=== PATIENT | female | born 1930 | race Hispanic/Latino ===

== ENCOUNTER 2017-08-06 11:16 | Inpatient (IN) | payer MEDICARE, OTHER ==
[2017-08-06 11:17] VITALS: BMI 29.2
--- NOTE | 2017-08-06 11:45 | ED PDOC ---
Arrival/HPI - General Chief Complaint: Lower Extremity Problem/Injury Time Seen by Provider: 08/06/17 11:42 Past Medical History - Infectious Disease Hx of Infectious Diseases: None - Reproductive Menopause: Yes - Cardiac Hx Cardiac Disorders: Yes Hx Hypertension: Yes - Pulmonary Hx Respiratory Disorders: Yes Hx Chronic Obstructive Pulmonary Disease (COPD): Yes - Neurological Hx Neurological Disorder: No Hx Paralysis: No - HEENT Hx HEENT Disorder: Yes Hx Cataracts: Yes - Renal Hx Renal Disorder: No - Endocrine/Metabolic Hx Endocrine Disorders: Yes Hx Hypothyroidism: Yes - Hematological/Oncological Hx Blood Disorders: No Hx Blood Transfusions: No Hx Blood Transfusion Reaction: No - Integumentary Hx Dermatological Disorder: No - Musculoskeletal/Rheumatological Hx Musculoskeletal Disorders: Yes Hx Arthritis: Yes - Gastrointestinal Hx Gastrointestinal Disorders: Yes (BARETT'S ESOPHAGUS,APPENDECTOMY) Hx Gall Bladder Disease: Yes (CHOLECYSTECTOMY) - Genitourinary/Gynecological Hx Genitourinary Disorders: Yes Hx Urinary Tract Infection: Yes (03-16-12) - Psychiatric Hx Psychophysiologic Disorder: No Hx Emotional Abuse: No Hx Physical Abuse: No Hx Substance Use: No - Past Surgical History Past Surgical History: Non-Contributing - Surgical History Hx Appendectomy: Yes Hx Cataract Extraction: Yes Hx Cholecystectomy: Yes Other/Comment: rt mastectomy rt breast ca - Anesthesia Hx Anesthesia Reactions: No Hx Malignant Hyperthermia: No - Suicidal Assessment Feels Threatened In Home Enviroment: No Family/Social History Smoking Status: Former Smoker Hx Alcohol Use: No Hx Substance Use: No Allergies/Home Meds Allergies/Adverse Reactions: Allergies No Known Allergies Allergy (Verified 12/14/15 15:43) Home Medications: Home Meds Medication Instructions Recorded Confirmed Aspirin [Ecotrin] 81 mg PO HS 08/31/15 02/12/16 Calcium Carbonate/Vitamin D3 1 tab PO HS 08/31/15 02/12/16 [Caltrate 600 Plus D3 Tablet] Cholecalciferol (Vitamin D3) 2,000 iu PO HS 08/31/15 02/12/16 [Vitamin D3] Levothyroxine [Synthroid] 75 mcg PO QAM 08/31/15 02/12/16 Metoprolol Succinate [Toprol Xl] 75 mg PO HS 08/31/15 02/12/16 Simvastatin 20 mg PO QPM 08/31/15 02/12/16 Omeprazole [Prilosec] 40 mg PO DAILY 09/03/15 02/12/16 Amitriptyline [Elavil] 37.5 mg PO HS 12/14/15 02/12/16 Ascorbate Calcium [Vitamin C] 500 mg PO DAILY 12/14/15 02/12/16 Physical Exam Vital Signs Reviewed: Yes Vital Signs Temp Pulse Resp BP Pulse Ox 08/06/17 11:30 98.1 F 62 18 109/55 L 93 L Temperature: Afebrile Blood Pressure: Hypotensive Pulse: Regular Respiratory Rate: Normal Appearance: Positive for: Well-Appearing, Non-Toxic, Comfortable Pain Distress: None Mental Status: Positive for: Alert and Oriented X 3 - Systems Exam Head: Present: Atraumatic, Normocephalic Pupils: Present: PERRL Extroacular Muscles: Present: EOMI Conjunctiva: Present: Normal Mouth: Present: Moist Mucous Membranes Neck: Present: Normal Range of Motion Respiratory/Chest: Present: Clear to Auscultation, Good Air Exchange. No: Respiratory Distress, Accessory Muscle Use Cardiovascular: Present: Regular Rate and Rhythm, Normal S1, S2. No: Murmurs Abdomen: No: Tenderness, Distention, Peritoneal Signs Back: Present: Normal Inspection Upper Extremity: Present: Normal Inspection. No: Cyanosis, Edema Lower Extremity: Present: Normal Inspection. No: Edema Neurological: Present: GCS=15, CN II-XII Intact, Speech Normal Skin: Present: Warm, Dry, Normal Color. No: Rashes Psychiatric: Present: Alert, Oriented x 3, Normal Insight, Normal Concentration Disposition/Present on Arrival - Present on Arrival History of DVT/PE: No History of Uncontrolled Diabetes: No Urinary Catheter: No History of Decub. Ulcer: No History Surgical Site Infection Following: None - Disposition
[2017-08-06] MEDS ORDERED: Oxycodone/Acetaminophen 5/325 mg Tab PO STA (11:46)
--- NOTE | 2017-08-06 11:49 | ED PDOC ---
Arrival/HPI - General Chief Complaint: Lower Extremity Problem/Injury Time Seen by Provider: 08/06/17 11:42 Historian: Patient, Other (friend is at bedside) - History of Present Illness Narrative History of Present Illness (Text): 08/06/17 11:43 pt p/w + ~ 1 week onset of left hip/leg pain that now over the last 3 days causes severe pain with lifting the leg; pt felt weak to the left leg now over the last 3 days; pt states no Fall/trauma; pt also noted left upper arm pain ( no trauma); pt states bearing weight, movement causes severe left leg pain, at most pain is 8/10; pt has been limping since 3-4 days ago; pt states no fever/ chills/sweats, no cp/sob/palpitations, no abd pain, no n/v, no numbness/tingling , no urinary/bowel changes, no incontinence, pt denied numbness/tingling to her vaginal/rectal regions, no travel/sick contact; pt denied any bleeding pt is here for further eval. pt's without other complaints. PCP: Dr Mabry onc: Dr Abdullahi - [facility] surg onc: Dr Manjit GOMEZ spine surg: Dr Savanna Ray last chemo: 06/2017 Cervical/Lumbar laminectomy Time/Duration: 1 week Symptom Onset: Sudden Symptom Course: Unchanged Quality: Other (left leg pain/cramps) Severity Level: 8, Severe Activities at Onset: Other (worse with walking) Context: Exertion, Home Past Medical History - Provider Review Nursing Documentation Reviewed: Yes - Travel History Have you recently traveled outside [place] w/in the past 3 mons?: No - Past History Past History: No Previous - Infectious Disease Hx of Infectious Diseases: None - Tetanus Immunization Tetanus Immunization: Unknown - Reproductive Menopause: Yes Currently : No - Cardiac Hx Cardiac Disorders: Yes Hx Hypertension: Yes - Pulmonary Hx Respiratory Disorders: Yes Hx Chronic Obstructive Pulmonary Disease (COPD): Yes - Neurological Hx Neurological Disorder: No Hx Paralysis: No - HEENT Hx HEENT Disorder: Yes Hx Cataracts: Yes - Renal Hx Renal Disorder: No - Endocrine/Metabolic Hx Endocrine Disorders: Yes Hx Hypothyroidism: Yes - Hematological/Oncological Hx Blood Disorders: No Hx Blood Transfusions: No Hx Blood Transfusion Reaction: No - Integumentary Hx Dermatological Disorder: No - Musculoskeletal/Rheumatological Hx Musculoskeletal Disorders: Yes Hx Arthritis: Yes - Gastrointestinal Hx Gastrointestinal Disorders: Yes (BARETT'S ESOPHAGUS,APPENDECTOMY) Hx Gall Bladder Disease: Yes (CHOLECYSTECTOMY) - Genitourinary/Gynecological Hx Genitourinary Disorders: Yes Hx Urinary Tract Infection: Yes (03-16-12) - Psychiatric Hx Psychophysiologic Disorder: No Hx Emotional Abuse: No Hx Physical Abuse: No Hx Substance Use: No - Past Surgical History Past Surgical History: Non-Contributing - Surgical History Hx Appendectomy: Yes Hx Cataract Extraction: Yes Hx Cholecystectomy: Yes Other/Comment: rt mastectomy rt breast ca - Anesthesia Hx Anesthesia Reactions: No Hx Malignant Hyperthermia: No - Suicidal Assessment Feels Threatened In Home Enviroment: No Family/Social History - Physician Review Nursing Documentation Reviewed: Yes Family/Social History: No Known Family HX Smoking Status: Former Smoker Hx Alcohol Use: No Hx Substance Use: No Hx Substance Use Treatment: No Allergies/Home Meds Allergies/Adverse Reactions: Allergies No Known Allergies Allergy (Verified 12/14/15 15:43) Home Medications: Home Meds Medication Instructions Recorded Confirmed Aspirin [Ecotrin] 81 mg PO HS 08/31/15 08/06/17 Calcium Carbonate/Vitamin D3 1 tab PO HS 08/31/15 08/06/17 [Caltrate 600 Plus D3 Tablet] Cholecalciferol (Vitamin D3) 2,000 iu PO HS 08/31/15 08/06/17 [Vitamin D3] Levothyroxine [Synthroid] 75 mcg PO QAM 08/31/15 08/06/17 Metoprolol Succinate [Toprol Xl] 75 mg PO HS 08/31/15 08/06/17 Simvastatin 20 mg PO QPM 08/31/15 08/06/17 Omeprazole [Prilosec] 40 mg PO DAILY 09/03/15 08/06/17 Amitriptyline [Elavil] 37.5 mg PO HS 12/14/15 08/06/17 Ascorbate Calcium [Vitamin C] 500 mg PO DAILY 12/14/15 08/06/17 Valsartan/Hydrochlorothiazide 1 tab PO DAILY 08/06/17 08/06/17 [Valsartan and Hydrochlorothiazide 25 mg-160 M] amLODIPine [Norvasc] 5 mg PO DAILY 08/06/17 08/06/17 Review of Systems - Review of Systems Constitutional: Fatigue. absent: Weight Change, Fevers, Night Sweats Eyes: Normal ENT: Normal Respiratory: Normal Cardiovascular: Normal Gastrointestinal: Normal Genitourinary Female: Normal Musculoskeletal: Other (left arm pain, left leg/hip region pain, no trauma) Skin: Normal Neurological: Normal Endocrine: Normal Hemo/Lymphatic: Normal Psychiatric: Normal Physical Exam Vital Signs Reviewed: Yes Vital Signs Temp Pulse Resp BP Pulse Ox 08/06/17 11:30 98.1 F 62 18 109/55 L 93 L Temperature: Afebrile Blood Pressure: Hypotensive Pulse: Regular Respiratory Rate: Normal Appearance: Positive for: Well-Appearing, Non-Toxic, Uncomfortable, Other ( uncomfortable during exam, alert/awake, GCS = 15, oriented x 3, resting in bed, NAD, cooperative) Pain Distress: None Mental Status: Positive for: Alert and Oriented X 3 - Systems Exam Head: Present: Atraumatic, Normocephalic, Other (mild bi-temporal wasting) Pupils: Present: PERRL, Other (no nystagmus, no photophobia, sclera anicteric, visual field intact b/l) Extroacular Muscles: Present: EOMI Conjunctiva: Present: Normal Ears: Present: Normal Mouth: Present: Moist Mucous Membranes, Normal Teeth, Other (uvula/tongue are midline, no exudate/legions, no dysphonia) Pharnyx: Present: Normal Nose (External): Present: Atraumatic Nose (Internal): Present: Normal Inspection Neck: Present: Normal Range of Motion, Trachea Midline, Other (no step off, no meningeal signs, no midline tenderness, no nuchal rigidity). No: Meningeal Signs, MIDLINE TENDERNESS, Paraspinal Tenderness Respiratory/Chest: Present: Clear to Auscultation, Good Air Exchange, Other ( CTA b/l, no w/r/r, no accessory muscle use noted, no tachypenia). No: Respiratory Distress, Accessory Muscle Use, Wheezes Cardiovascular: Present: Regular Rate and Rhythm, Normal S1, S2 Abdomen: Present: Normal Bowel Sounds, Other (well nourished female, no focal tenderness, no priest's sign, no mcburney's point tenderness, no masses/rebound/ guarding/rigidity) Back: Present: Normal Inspection, Pain with Leg Raise, Other (+ diffuse left upper hip/leg pain, no gross deformities, + Pain with left leg raise at 15degrees, intact reflex +2/2, neurovasc intact b/l, strength 5/5 grossly intact in b/l). No: CVA Tenderness, Midline Tenderness, Paraspinal Tenderness Upper Extremity: Present: Normal Inspection, Normal ROM, NORMAL PULSES, Neurovascularly Intact, Capillary Refill < 2s, Other (intact ROM, strength 5/5 grossly intact in all limbs, neurovasc intact b/l). No: Deformity Lower Extremity: Present: Normal Inspection, NORMAL PULSES, Tenderness (left upper regions of the leg), Neurovascularly Intact, Other (decr ROM to left hip/ leg; no crepitus, no gross deformities). No: Deformity Neurological: Present: GCS=15, CN II-XII Intact, Speech Normal, Other (CNII-XII WNL, no facial asymmetries, no slurr speech) Skin: Present: Warm, Normal Color, Other (cap refill < 1sec, no ulcerations, no petechiae, no rashes/lesions). No: Pale Psychiatric: Present: Alert, Oriented x 3 Medical Decision Making ED Course and Treatment: 08/06/17 11:55 Impression: left arm/leg pain/atrumatic; + left leg weakness i have consider all the differential diagnosis regarding pt's chief medical complaints/clinical findings, including but are not limited to: left arm/leg pain/atrumatic; + left leg weakness A/P: left arm/leg pain/atrumatic; + left leg weakness - xray - us - labs - iv - supportive care - observe/reevaluation 08/06/17 1405 pt continues to have left leg pain, unable to walk without assistance pt states with movement, her left leg pain is severe at 8-9/10 will recommend patient for admission, for continue physical therapy and possible outpt rehab [id number] Hospitalist contacted, made aware, agrees with admission pt is made aware of her medical results agrees with admission Re-evaluation Time: 14:35 Reassessment Condition: Unchanged - Lab Interpretations Lab Results: 08/06/17 12:08 08/06/17 12:08 Lab Results 08/06/17 14:20: Urine Color Yellow, Urine Appearance Sl cloudy, Urine pH 7.0, Ur Specific Hollister 1.010, Urine Protein Negative, Urine Glucose (UA) Negative, Urine Ketones Negative, Urine Blood Trace-intact H, Urine Nitrate Negative, Urine Bilirubin Negative, Urine Urobilinogen 0.2, Ur Leukocyte Esterase Small H , Urine RBC Pending, Urine WBC Pending 08/06/17 12:08: pO2 80 H, VBG pH 7.41, VBG pCO2 49.0, VBG HCO3 31.1 H, VBG Total CO2 32.6 H, VBG O2 Sat (Calc) 97.2 H, VBG Base Excess 5.3 H, VBG Potassium 4.6, Sodium 135.0, Chloride 102.0, Glucose 128 H, Lactate 1.2, FiO2 21.0, Venous Blood Potassium 4.6 08/06/17 12:08: Sodium 139, Chloride 101, Potassium 4.6, Carbon Dioxide 27, Anion Gap 16, BUN 29 H, Creatinine 1.1, Est GFR ( Amer) 57, Est GFR (Non- Af Amer) 47, Random Glucose 121 H, Calcium 10.0, Total Bilirubin 0.3, AST 25, ALT 23, Alkaline Phosphatase 67, Troponin I < 0.01, Total Protein 7.2, Albumin 4.3, Globulin 2.9, Albumin/Globulin Ratio 1.5 08/06/17 12:08: PT 11.5, INR 1.00, APTT 28.3 08/06/17 12:08: WBC 7.9 D, RBC 3.33 L, Hgb 10.6 L D, Hct 31.0 L, MCV 93.1 D, MCH 31.8, MCHC 34.2, RDW 14.4, Plt Count 164, MPV 10.0, Gran % 77.1 H, Lymph % ( Auto) 9.4 L, Holmes % (Auto) 12.7 H, Eos % (Auto) 0.4 L, Baso % (Auto) 0.4, Gran # 6.10, Lymph # (Auto) 0.7 L, Holmes # (Auto) 1.0 H, Eos # (Auto) 0.0, Baso # ( Auto) 0.03 I have reviewed the lab results: Yes Interpretation: All labs normal - RAD Interpretation Narrative RAD Interpretations (Text): 08/06/2017 14:13:18 Chest PA and lateral FINDINGS: LUNGS: No active pulmonary disease. PLEURA: No significant pleural effusion identified. No pneumothorax apparent. CARDIOVASCULAR: Mild cardiomegaly OSSEOUS STRUCTURES: No significant abnormalities. VISUALIZED UPPER ABDOMEN: Normal. OTHER FINDINGS: None. IMPRESSION: No active disease. 08/06/2017 14:18:51 Radiographs of the Left Shoulder FINDINGS: BONES: Normal. No fracture. JOINTS: Normal. Glenohumeral and acromioclavicular joints preserved. No osteoarthritis. SOFT TISSUES: Normal. OTHER FINDINGS: None. IMPRESSION: Normal radiographs of the left shoulder. 08/06/2017 14:19:33 Radiographs of the left humerus. FINDINGS: BONES: Normal. No fracture or focal lesion. SOFT TISSUES: Normal. OTHER FINDINGS: None. IMPRESSION: Normal radiographs of left humerus. 08/06/2017 14:23:26 Left Knee Radiographs. FINDINGS: BONES: Normal. No fracture. JOINTS: Normal. No osteoarthritis. JOINT EFFUSION: None. OTHER FINDINGS: None. IMPRESSION: Normal radiographs of the left knee. 08/06/2017 14:22:23 Left Femur Radiographs. FINDINGS: FEMUR: Normal. No fracture. SOFT TISSUES: Normal. OTHER FINDINGS: None. IMPRESSION: Unremarkable radiographs of the left femur. 08/06/2017 14:20:38 Left Hip and pelvis X-ray Radiographs. FINDINGS: BONES: Normal. No fracture. JOINTS: Normal. SOFT TISSUES: Normal. OTHER FINDINGS: None. IMPRESSION: Negative study 08/06/17 14:36 U/S duplex: NO DVT b/l Radiology Orders: 08/06/17 11:46 Hip Left [HIP MIN 4V W/ PELVIS LT] [RAD] Stat 08/06/17 11:47 Femur Left [FEMUR MIN 2 VIEWS LT] [RAD] Stat KNEE LEFT 2 VIEWS (AP & LAT) [RAD] Stat 08/06/17 11:48 HUMERUS LEFT [RAD] Stat SHOULDER LEFT [RAD] Stat 08/06/17 11:49 CHEST TWO VIEWS (PA/LAT) [RAD] Stat 08/06/17 11:57 DUPLEX LOWER EXTRM VEIN BILAT [US] Stat Laboratory Monitor: Radiologist - EKG Interpretation EKG Interpretation (Text): 08/06/17 12:04 NSR at 65 bpm, normal axis, no ectopy, no st-t changes, NORMAL EKG; unchanged compare with old ekg 01/2016 Interpreted by ED Physician: Yes Type: 12 lead EKG Comparison: Similar to previous EKG - Medication Orders Current Medication Orders: Sodium Chloride (Sodium Chloride 0.9%) 1,000 mls @ 100 mls/hr IV .Q10H DILIP Last Admin: 08/06/17 13:08 Dose: 100 mls/hr eMAR Start Stop Document 08/06/17 13:08 [email or web address] (Rec: 08/06/17 13:09 [email or web address] [id number]) Intravenous Solution Start Date 08/06/17 Start Time 13:09 End Date 08/06/17 Morphine Sulfate (Morphine) 4 mg IVP STAT STA Stop: 08/06/17 14:34 Discontinued Medications Oxycodone/Acetaminophen (Percocet 5/325 Mg Tab) 1 tab PO STAT STA Stop: 08/06/17 11:47 Last Admin: 08/06/17 13:07 Dose: 1 tab MAR Pain Assessment Document 08/06/17 13:07 [email or web address] (Rec: 08/06/17 13:07 [email or web address] [id number]) Pain Reassessment Is this a pain reassessment? No Sleep Is patient sleeping during reassessment? No Presence of Pain Presence of Pain Yes Pain Scale Used Pain Scale Used Numeric Location Left, Right or Bilateral Left Pain Location Body Site Leg Description Description Constant Intensity of Pain at present 7 Pain Behavior Facial Grimacing Aggravating Factors Changing Position Alleviating Factors/Management Position Change Techniques Alleviating Factors Medication Disposition/Present on Arrival - Present on Arrival Any Indicators Present on Arrival: No History of DVT/PE: No History of Uncontrolled Diabetes: No Urinary Catheter: No History of Decub. Ulcer: No History Surgical Site Infection Following: None - Disposition Have Diagnosis and Disposition been Completed?: Yes Diagnosis: Left leg pain, Ambulatory dysfunction, Breast cancer Disposition: HOSPITALIZED Disposition Time: 14:37 Patient Plan: Admission Patient Problems: Current Active Problems Problem Status Onset Ambulatory dysfunction Acute Breast cancer Acute Left leg pain Acute Condition: STABLE Print Language: TAMAZIGHT Referrals: Mravin Reno MD [Primary Care Provider] - Follow up with primary Forms: Zaya (Chinese)
[2017-08-06 12:19] LABS: VENOUS BLOOD GAS BASE EXCESS 5.3 mmol/L (0.0-2.0); VENOUS BLOOD GAS PO2 80 mm/Hg (30-55); VENOUS BLOOD PH 7.41 (7.32-7.43)
[2017-08-06 12:30] LABS: ALB/GLOB RATIO 1.5 (1.1-1.8); ALBUMIN 4.3 g/dL (3.0-4.8); ALT/SGPT 23 U/L (7-56); AST/SGOT 25 U/L (14-36); BLOOD UREA NITROGEN 29 mg/dL (7-21); GFR AFRICAN-AMERICAN 57; GFR NON-AFRICAN AMERICAN 47
[2017-08-06 12:31] LABS: BASO # 0.03 K/mm3 (0.0-2.0); BASO % 0.4 % (0.0-3.0); EOS % 0.4 % (1.5-5.0); GRAN # 6.1 (1.4-6.5); GRAN % 77.1 % (50.0-68.0); HEMOGLOBIN 10.6 g/dL (12.0-16.0); LYMPH # 0.7 (1.2-3.4); LYMPH % 9.4 % (22.0-35.0); MEAN CELL VOLUME 93.1 fl (80.0-105.0); MEAN CORPUSCULAR HEMOGLOBIN 31.8 pg (25.0-35.0); MEAN CORPUSCULAR HGB CONC 34.2 g/dl (31.0-37.0); MONO % 12.7 % (1.0-6.0); RBC 3.33 10^6/uL (3.5-6.1); RED CELL DISTRIBUTION WIDTH 14.4 % (11.5-14.5); WHITE BLOOD COUNT 7.9 10^3/ul (4.5-11.0)
[2017-08-06 12:32] LABS: PARTIAL THROMBOPLASTIN TIME 28.3 Seconds (25.1-36.5); PROTHROMBIN TIME 11.5 SECONDS (9.4-12.5)
[2017-08-06 12:40] LABS: TROPONIN I < 0.01 ng/mL
[2017-08-06] MEDS: Sodium Chloride 0.9% 1,000 ML IV SCH ×2 (13:08→23:00)
--- NOTE | 2017-08-06 14:15 | RAD ---
HISTORY: weakness, left leg pain COMPARISON: 12/05/2016 TECHNIQUE: Chest PA and lateral FINDINGS: LUNGS: No active pulmonary disease. PLEURA: No significant pleural effusion identified. No pneumothorax apparent. CARDIOVASCULAR: Mild cardiomegaly OSSEOUS STRUCTURES: No significant abnormalities. VISUALIZED UPPER ABDOMEN: Normal. OTHER FINDINGS: None. IMPRESSION: No active disease.
--- NOTE | 2017-08-06 14:20 | RAD ---
PROCEDURE: Radiographs of the Left Shoulder HISTORY: left shoulder/arm pain COMPARISON: No prior. FINDINGS: BONES: Normal. No fracture. JOINTS: Normal. Glenohumeral and acromioclavicular joints preserved. No osteoarthritis. SOFT TISSUES: Normal. OTHER FINDINGS: None. IMPRESSION: Normal radiographs of the left shoulder.
--- NOTE | 2017-08-06 14:20 | RAD ---
PROCEDURE: Radiographs of the left humerus. HISTORY: left arm pain, atrumatic COMPARISON: None. FINDINGS: BONES: Normal. No fracture or focal lesion. SOFT TISSUES: Normal. OTHER FINDINGS: None. IMPRESSION: Normal radiographs of left humerus.
--- NOTE | 2017-08-06 14:21 | RAD ---
PROCEDURE: Left Hip and pelvis X-ray Radiographs. HISTORY: atrumatic pain, breast cancer, left leg pain COMPARISON: None. FINDINGS: BONES: Normal. No fracture. JOINTS: Normal. SOFT TISSUES: Normal. OTHER FINDINGS: None. IMPRESSION: Negative study
--- NOTE | 2017-08-06 14:23 | RAD ---
PROCEDURE: Left Femur Radiographs. HISTORY: atrumatic pain, breast cancer, left leg pain COMPARISON: None. TECHNIQUE: AP and Lateral Radiographs of the left femur. FINDINGS: FEMUR: Normal. No fracture. SOFT TISSUES: Normal. OTHER FINDINGS: None. IMPRESSION: Unremarkable radiographs of the left femur.
[2017-08-06 14:24] LABS: URINE BILIRUBIN NEGATIVE (NEGATIVE); URINE BLOOD TRACE-INTACT (NEGATIVE); URINE GLUCOSE (UA) NEGATIVE (NEGATIVE); URINE LEUKOCYTE ESTERASE SMALL Leu/uL (NEGATIVE); URINE PROTEIN NEGATIVE mg/dL (<30 mg/dL); URINE UROBILINOGEN 0.2 E.U./dL (<1 E.U./dL)
--- NOTE | 2017-08-06 14:24 | RAD ---
PROCEDURE: Left Knee Radiographs. HISTORY: Pain. COMPARISON: None. FINDINGS: BONES: Normal. No fracture. JOINTS: Normal. No osteoarthritis. JOINT EFFUSION: None. OTHER FINDINGS: None. IMPRESSION: Normal radiographs of the left knee.
[2017-08-06 14:25] LABS: URINE APPEARANCE SL CLOUDY (CLEAR); URINE COLOR YELLOW (YELLOW)
[2017-08-06] MEDS ORDERED: Morphine 4 mg/ml ISec IVP STA ×2 (14:33→20:38)
[2017-08-06 14:38] LABS: URINE BACTERIA MOD (NEG)
--- NOTE | 2017-08-06 15:46 | US ---
HISTORY: Leg pain and swelling. Evaluate for DVT PHYSICIAN(S): Michael Serra MD. TECHNIQUE: Duplex sonography and color-flow Doppler with graded compression were used to evaluate the deep venous systems of both lower extremities. FINDINGS: The visualized deep venous systems of both lower extremities are sonographically normal and compressible. Normal wave forms and augmentation are seen. There is no sonographic evidence for deep venous thrombosis in the visualized segments of both lower extremities. IMPRESSION: No sonographic evidence for deep venous thrombosis in the visualized segments of both lower extremities.
--- NOTE | 2017-08-06 15:48 | CP.PCM.HP ---
<Kamran Noonan - Last Filed: 08/06/17 16:02> History of Present Illness - History of Present Illness History of Present Illness: Patient is a 86F with a PMH of HTN, Diastolic Dysfunction, Hypercholesterolemia , Raynauds, Hypothyroid, GERD, Barretts Esophagus and breast cancer who comes to the ED with a CC of Left leg weakness. She states the weakness began yesterday but has been worsening today. The weakness began to concern her so she came to the ED to have it evaluated. She states it is associated with the occasional throbbing or sharp pain but it is the weakness that is most concerning to her. She denies any numbness or tingling. Nothing makes it better or worse. She states that sometimes she feels tightness in the corresponding hip. The weakness has been constant and progressive since its onset. She also complains of some Left arm pain when she lifts the arm to 180 degrees. She states that she had one prior episode of Right upper thigh and hip pain that was exquistly tender years ago but resolved with multiple epidurals and PT. Of Note she recently finished chemo for her breast CA and has repeat PET scan scheduled for August 13. All xrays done in the ED were normal. blood work normal. PMH: HTN, Diastolic Dysfunction, Hypercholesterolemia, Raynauds, Hypothyroid, GERD, Barretts Esophagus and breast cancer PSH: Appendectomy 1942, Left Cataract 1998, Right Cataract 1999, Lumbar Laminectomy 2002, Cervical Laminectomy 2004, Bunionectomy w/ Hammertoe 2010, Cardiac Cath x3, Epidural x3, D & C, Endoscopy, Colonoscopy FH: Mother had CHF and in her 70s, Father had COPD and in his 80s. SH: Denies smoking, drinking or drug use All: NKA Present on Admission - Present on Admission Any Indicators Present on Admission: No Review of Systems - Review of Systems Review of Systems: per HPI Past Patient History - Infectious Disease Hx of Infectious Diseases: None - Tetanus Immunizations Tetanus Immunization: Unknown - Past Social History Smoking Status: Former Smoker - CARDIAC Hx Cardiac Disorders: Yes Hx Hypertension: Yes - PULMONARY Hx Respiratory Disorders: Yes Hx Chronic Obstructive Pulmonary Disease (COPD): Yes - NEUROLOGICAL Hx Neurological Disorder: No Hx Paralysis: No - HEENT Hx HEENT Problems: Yes Hx Cataracts: Yes - RENAL Hx Chronic Kidney Disease: No - ENDOCRINE/METABOLIC Hx Endocrine Disorders: Yes Hx Hypothyroidism: Yes - HEMATOLOGICAL/ONCOLOGICAL Hx Blood Disorders: No Hx Blood Transfusions: No Hx Blood Transfusion Reaction: No - INTEGUMENTARY Hx Dermatological Problems: No - MUSCULOSKELETAL/RHEUMATOLOGICAL Hx Musculoskeletal Disorders: Yes Hx Arthritis: Yes - GASTROINTESTINAL Hx Gastrointestinal Disorders: Yes (BARETT'S ESOPHAGUS,APPENDECTOMY) Hx Gall Bladder Disease: Yes (CHOLECYSTECTOMY) - GENITOURINARY/GYNECOLOGICAL Hx Genitourinary Disorders: Yes Hx Urinary Tract Infection: Yes (03-16-12) - PSYCHIATRIC Hx Psychophysiologic Disorder: No Hx Emotional Abuse: No Hx Physical Abuse: No Hx Substance Use: No - SURGICAL HISTORY Hx Appendectomy: Yes Hx Cataract Extraction: Yes Hx Cholecystectomy: Yes Other/Comment: rt mastectomy rt breast ca - ANESTHESIA Hx Anesthesia Reactions: No Hx Malignant Hyperthermia: No Meds Allergies/Adverse Reactions: Allergies Allergy/AdvReac Type Severity Reaction Status Date / Time No Known Allergies Allergy Verified 12/14/15 15:43 Physical Exam - Constitutional Appears: Well - Head Exam Head Exam: ATRAUMATIC, NORMAL INSPECTION, NORMOCEPHALIC - Eye Exam Eye Exam: EOMI, Normal appearance, PERRL Pupil Exam: NORMAL ACCOMODATION, PERRL - ENT Exam ENT Exam: Mucous Membranes Moist, Normal Exam - Neck Exam Neck exam: Positive for: Normal Inspection - Respiratory Exam Respiratory Exam: Clear to Auscultation Bilateral, NORMAL BREATHING PATTERN - Cardiovascular Exam Cardiovascular Exam: REGULAR RHYTHM - GI/Abdominal Exam GI & Abdominal Exam: Normal Bowel Sounds, Soft. absent: Tenderness - Extremities Exam Extremities exam: Positive for: normal inspection. Negative for: joint swelling , tenderness Additional comments: SLR negative, no midline tenderness, no paresthesias, Muscle strength 2/5 on the left side. - Back Exam Back exam: NORMAL INSPECTION. absent: paraspinal tenderness, tenderness, vertebral tenderness - Expanded Back Exam Expanded Back exam: Negative Straight Leg Raising: Left, Sciatic Notch Tenderness: Left - Neurological Exam Neurological exam: Alert, CN II-XII Intact, Normal Gait, Oriented x3, Reflexes Normal - Psychiatric Exam Psychiatric exam: Normal Affect, Normal Mood - Skin Skin Exam: Dry, Intact, Normal Color, Warm Results - Vital Signs Recent Vital Signs: Last Vital Signs Temp 98.1 F 08/06/17 11:30 Pulse 62 08/06/17 11:30 Resp 18 08/06/17 11:30 BP 109/55 L 08/06/17 11:30 Pulse Ox 93 L 08/06/17 11:30 - Labs Result Diagrams: 08/06/17 12:08 08/06/17 12:08 Assessment & Plan (1) Left leg weakness Assessment and Plan: All Xrays negative F/U MRI Status: Acute Priority: Medium (2) Hypothyroidism Assessment and Plan: Synthroid 75 PO QAM Status: Acute (3) HTN (hypertension) Assessment and Plan: Norvasc 5 PO QD HCTZ 25 PO QD Metoprolol Succ 75 PO HS Valsartan 160 PO QD Status: Chronic Priority: High (4) Diastolic dysfunction without heart failure Assessment and Plan: ASA 81mg PO HS Status: Chronic Priority: High (5) Hypercholesteremia Assessment and Plan: Lipitor 20 PO HS Status: Chronic Priority: High (6) Vitamin D deficiency Assessment and Plan: Vitamin D 2000 PO HS Status: Acute (7) Insomnia Assessment and Plan: Amitriptyline 37.5 PO HS Status: Chronic Priority: Low (8) Prophylactic measure Assessment and Plan: Lovenox 40 SC QD SCD No GI PPX indicated at this time Status: Acute Priority: Medium <Massimo Baker - Last Filed: 08/08/17 14:44> Results - Vital Signs Recent Vital Signs: Last Vital Signs Temp 97.8 F 08/08/17 06:00 Pulse 64 08/08/17 12:06 Resp 20 08/08/17 06:00 BP 124/59 L 08/08/17 12:06 Pulse Ox 96 08/08/17 06:00 - Labs Result Diagrams: 08/07/17 09:45 08/07/17 09:45 Attending/Attestation - Attestation I have personally seen and examined this patient.: Yes I have fully participated in the care of the patient.: Yes I have reviewed all pertinent clinical information: Yes Notes (Text): I have seen and examined the patient at bedside. Agree with the above note with the following additions/ exceptions: Briefly this is 86 year old female with history of HTN, Diastolic Dysfunction, Hypercholesterolemia, Raynauds, Hypothyroid, GERD, Barretts Esophagus and breast cancer who came for evaluation of left lower extremity pain and weakness. Imaging reviewed. Will order MRI of lumbar spine. Will order for PT eval. Upon discharge patient will follow up with Dr Hernandez.
[2017-08-06] MEDS ORDERED: Morphine 2 mg/ml ISec IVP PRN (17:23)
[2017-08-06] MEDS: Morphine 4 mg/ml ISec IVP PRN (17:48)
[2017-08-06] MEDS ORDERED: Gadodiamide 287 MG/ML VIAL (15ML) IV ONE (19:29)
--- NOTE | 2017-08-06 20:49 | MRI ---
EXAM: MR Lumbar Spine Without and With Intravenous Contrast EXAM DATE/TIME: 08/06/2017 6:20 PM CLINICAL HISTORY: The patient age is 86 years old and is female; Pain; Sciatica; Left; Prior surgery; Surgery date: 6+ months; Surgery type: Laminectomy lumbar 2002; Additional info: Left leg weakness Facility exam id and description: Mri splcsg spinal lumbar w/wo shirley TECHNIQUE: Magnetic resonance images of the lumbar spine without and with intravenous contrast in multiple planes. CONTRAST: 15 mL of omniscan administered intravenously. COMPARISON: CR - LS SPINE WITH OBL > 18 YRS OLD 2015-08-06 15:38 FINDINGS: Vertebrae: There is grade I anterolisthesis of L4 on L5, with mild retrolisthesis of L3 on L4. The lumbar vertebral bodies are normal in height bilaterally defects are visualized at the L4 and L5 vertebral levels. Mild enhancement is seen within the lateral recesses at L4-5, consistent with scar tissue. Spinal cord: The distal end of the conus medullaris ends at L1, normal in position. Sacrum/coccyx: Within the S1 vertebral body, there is a nonspecific sclerotic lesion measuring 1.5 x 1.3 cm. Other: T2 hyperintense renal cysts are visualized bilaterally. At the upper pole the left kidney, there is a T2 hyperintense cysts measuring 4.6 cm in diameter. DISCS/SPINAL CANAL/NEURAL FORAMINA: Degenerative disc disease is noted diffusely within the lumbar spine, with a decrease in the T2 signal intensity of the discs as well as disc bulge/osteophyte complexes. There is a decrease of disc height at L3-4, with significant end plate irregularity at L2-3 and L3-4. L1-L2: There is no significant narrowing of the thecal sac or neural foramina. L2-L3: There is bilateral facet arthropathy. There is mild narrowing of the thecal sac and narrowing of both lateral recesses. Moderate right neural foramina is identified. L3-L4: There is a broad-based disc bulge with posterior disc herniation/extrusion, which extends inferiorly. This causes severe narrowing of the thecal sac. The AP dimension of the thecal sac measures 0.5 cm. Mild bilateral neural foraminal narrowing is identified. There is bilateral facet arthropathy. L4-L5: There is bilateral facet arthropathy. A broad-based disc bulge is identified causing mild narrowing of the thecal sac and narrowing of both lateral recesses. Moderate bilateral neural foraminal narrowing is identified. L5-S1: A small central disc bulge/protrusion causing minimal impression on the thecal sac, without significant narrowing. Moderate bilateral neural foraminal narrowing is identified. There is bilateral facet arthropathy. IMPRESSION: 1. There is grade I anterolisthesis of L4 on L5, with mild retrolisthesis of L3 on L4. 2. Degenerative changes are identified diffusely within the lumbar spine, as described above. 3. At L3-4, there is a broad-based disc bulge with disc extrusion causing severe narrowing of the thecal sac. Mild narrowing of the thecal sac is identified at L2-3 and L4-5. 4. Neural foraminal narrowing is identified from L2-3 through L5-S1, as detailed above. 5. Postoperative changes are noted above. Mild enhancement is seen within the lateral recesses at L4-5, consistent with scar tissue. 6. Within the S1 vertebral body, there is a nonspecific sclerotic lesion measuring 1.5 x 1.3 cm. 7. T2 hyperintense renal cysts are visualized bilaterally.
[2017-08-06] MEDS: Metoprolol Succinate 25 mg XL Tab PO SCH (21:09)
[2017-08-06] MEDS: Cholecalciferol 1,000 INTLU TAB PO SCH (21:11)
[2017-08-07] MEDS: Morphine 4 mg/ml ISec IVP PRN ×5 (00:21→23:52)
[2017-08-07] MEDS: Enoxaparin 40 mg Syringe SC SCH (09:41)
[2017-08-07] MEDS: Levothyroxine 75 MCG TAB PO SCH (09:42)
[2017-08-07 09:55] LABS: BASO # 0.04 K/mm3 (0.0-2.0); BASO % 0.9 % (0.0-3.0); EOS % 0.6 % (1.5-5.0); GRAN # 2.95 (1.4-6.5); GRAN % 62.8 % (50.0-68.0); HEMOGLOBIN 10.3 g/dL (12.0-16.0); LYMPH # 1.3 (1.2-3.4); LYMPH % 28.5 % (22.0-35.0); MEAN CELL VOLUME 94.2 fl (80.0-105.0); MEAN CORPUSCULAR HEMOGLOBIN 31.7 pg (25.0-35.0); MEAN CORPUSCULAR HGB CONC 33.7 g/dl (31.0-37.0); MEAN PLATELET VOLUME 9.8 fl (7.0-11.0); MONO # 0.3 (0.1-0.6); MONO % 7.2 % (1.0-6.0); RBC 3.25 10^6/uL (3.5-6.1); RED CELL DISTRIBUTION WIDTH 14.4 % (11.5-14.5); WHITE BLOOD COUNT 4.7 10^3/ul (4.5-11.0)
--- NOTE | 2017-08-07 10:03 | CARD ---
APPROVED REPORT EKG Measurement Heart [id number] <Conclusion> Normal sinus rhythm Normal ECG
[2017-08-07 10:05] LABS: ALB/GLOB RATIO 1.5 (1.1-1.8); ALBUMIN 3.9 g/dL (3.0-4.8); ALT/SGPT 23 U/L (7-56); AST/SGOT 24 U/L (14-36); BLOOD UREA NITROGEN 18 mg/dL (7-21); GFR AFRICAN-AMERICAN > 60; GFR NON-AFRICAN AMERICAN 60
--- NOTE | 2017-08-07 13:55 | CP.PCM.PN ---
<Kamran Noonan - Last Filed: 08/07/17 13:51> Subjective - Date & Time of Evaluation Date of Evaluation: 08/07/17 Time of Evaluation: 13:51 - Subjective Subjective: Patient seen and examined at bedside. Continues to complain of left leg pain and weakness. Was able to ambulate with PT with walker without difficulty. Patient was offered home rehab as well as admission to TCU but declined these services. Patient was offered Neurosurgery evaluation but declined. Objective - Vital Signs/Intake and Output Vital Signs (last 24 hours): Temp Pulse Resp BP Pulse Ox 97.4 F L 55 L 20 117/65 96 08/07/17 06:00 08/07/17 06:00 08/07/17 06:00 08/07/17 06:00 08/07/17 06:00 - Medications Medications: Current Medications Acetaminophen (Tylenol 325mg Tab) 650 mg PO Q6H PRN PRN Reason: Pain, Mild (1-3) Amitriptyline HCl (Elavil) 37.5 mg PO HS [facility] Last Admin: 08/06/17 21:11 Dose: 37.5 mg Amlodipine Besylate (Norvasc) 5 mg PO DAILY [facility] Aspirin (Ecotrin) 81 mg PO HS [facility] Last Admin: 08/06/17 21:11 Dose: 81 mg Atorvastatin Calcium (Lipitor) 20 mg PO HS [facility] Cholecalciferol (Vitamin D) 2,000 intlu PO HS [facility] Last Admin: 08/06/17 21:11 Dose: 2,000 intlu Diphenhydramine HCl (Benadryl) 25 mg PO HS [facility] Last Admin: 08/06/17 21:14 Dose: 25 mg Enoxaparin Sodium (Lovenox) 40 mg SC DAILY [facility] PRN Reason: Protocol Last Admin: 08/07/17 09:41 Dose: 40 mg Hydrochlorothiazide (Hydrodiuril) 25 mg PO DAILY [facility] Last Admin: 08/07/17 09:42 Dose: 25 mg Sodium Chloride (Sodium Chloride 0.9%) 1,000 mls @ 100 mls/hr IV .Q10H [facility] Last Admin: 08/06/17 23:00 Dose: 100 mls/hr Ketorolac Tromethamine (Toradol) 15 mg IVP Q6H PRN PRN Reason: Pain, moderate (4-7) Levothyroxine Sodium (Synthroid) 75 mcg PO QAM [facility] Last Admin: 08/07/17 09:42 Dose: 75 mcg Losartan Potassium (Cozaar) 100 mg PO DAILY [facility] Last Admin: 08/07/17 09:51 Dose: 100 mg Metoprolol Succinate (Toprol Xl) 75 mg PO HS [facility] Last Admin: 08/06/17 21:09 Dose: 75 mg Morphine Sulfate (Morphine) 1 mg IVP Q4H PRN PRN Reason: Pain, severe (8-10) Last Admin: 08/07/17 09:42 Dose: 1 mg - Labs Labs: 08/07/17 09:45 08/07/17 09:45 PT 11.5 SECONDS (9.4-12.5) 08/06/17 12:08 INR 1.00 (0.93-1.08) 08/06/17 12:08 APTT 28.3 Seconds (25.1-36.5) 08/06/17 12:08 - Additional Findings Additional findings: - Constitutional Appears: Well - Head Exam Head Exam: ATRAUMATIC, NORMAL INSPECTION, NORMOCEPHALIC - Eye Exam Eye Exam: EOMI, Normal appearance, PERRL Pupil Exam: NORMAL ACCOMODATION, PERRL - ENT Exam ENT Exam: Mucous Membranes Moist, Normal Exam - Neck Exam Neck exam: Positive for: Normal Inspection - Respiratory Exam Respiratory Exam: Clear to Auscultation Bilateral, NORMAL BREATHING PATTERN - Cardiovascular Exam Cardiovascular Exam: REGULAR RHYTHM - GI/Abdominal Exam GI & Abdominal Exam: Normal Bowel Sounds, Soft. absent: Tenderness - Extremities Exam Extremities exam: Positive for: normal inspection. Negative for: joint swelling , tenderness Additional comments: SLR negative, no midline tenderness, no paresthesias, Muscle strength 2/5 on the left side. - Back Exam Back exam: NORMAL INSPECTION. absent: paraspinal tenderness, tenderness, vertebral tenderness - Expanded Back Exam Expanded Back exam: Negative Straight Leg Raising: Left, Sciatic Notch Tenderness: Left - Neurological Exam Neurological exam: Alert, CN II-XII Intact, Normal Gait, Oriented x3, Reflexes Normal - Psychiatric Exam Psychiatric exam: Normal Affect, Normal Mood - Skin Skin Exam: Dry, Intact, Normal Color, Warm Assessment and Plan - Assessment and Plan (Free Text) Assessment: (1) Left leg weakness Assessment and Plan: All Xrays negative F/U MRI Status: Acute Priority: Medium (2) Hypothyroidism Assessment and Plan: Synthroid 75 PO QAM Status: Acute (3) HTN (hypertension) Assessment and Plan: Norvasc 5 PO QD HCTZ 25 PO QD Metoprolol Succ 75 PO HS Valsartan 160 PO QD Status: Chronic Priority: High (4) Diastolic dysfunction without heart failure Assessment and Plan: ASA 81mg PO HS Status: Chronic Priority: High (5) Hypercholesteremia Assessment and Plan: Lipitor 20 PO HS Status: Chronic Priority: High (6) Vitamin D deficiency Assessment and Plan: Vitamin D 2000 PO HS Status: Acute (7) Insomnia Assessment and Plan: Amitriptyline 37.5 PO HS Status: Chronic Priority: Low (8) Prophylactic measure Assessment and Plan: Lovenox 40 SC QD SCD No GI PPX indicated at this time Status: Acute Priority: Medium <Massimo Baker - Last Filed: 08/08/17 14:56> Objective - Vital Signs/Intake and Output Vital Signs (last 24 hours): Temp Pulse Resp BP Pulse Ox 97.8 F 64 20 124/59 L 96 08/08/17 06:00 08/08/17 12:06 08/08/17 06:00 08/08/17 12:06 08/08/17 06:00 Intake and Output: 08/08/17 08/08/17 06:59 18:59 Intake Total 480 720 Balance 480 720 - Medications Medications: Current Medications Acetaminophen (Tylenol 325mg Tab) 650 mg PO Q6H PRN PRN Reason: Pain, Mild (1-3) Amitriptyline HCl (Elavil) 37.5 mg PO [facility] Last Admin: 08/07/17 21:59 Dose: 37.5 mg Amlodipine Besylate (Norvasc) 5 mg PO DAILY [facility] Last Admin: 08/08/17 12:06 Dose: 5 mg Aspirin (Ecotrin) 81 mg PO HS [facility] Last Admin: 08/07/17 21:59 Dose: 81 mg Atorvastatin Calcium (Lipitor) 20 mg PO HS [facility] Last Admin: 08/07/17 21:58 Dose: 20 mg Cholecalciferol (Vitamin D) 2,000 intlu PO HS [facility] Last Admin: 08/07/17 21:58 Dose: 2,000 intlu Diphenhydramine HCl (Benadryl) 25 mg PO [facility] Last Admin: 08/07/17 21:57 Dose: 25 mg Enoxaparin Sodium (Lovenox) 40 mg SC DAILY [facility] PRN Reason: Protocol Last Admin: 08/08/17 12:07 Dose: 40 mg Gabapentin (Neurontin) 300 mg PO TID PRN; Protocol PRN Reason: Pain, moderate (4-7) Hydrochlorothiazide (Hydrodiuril) 25 mg PO DAILY [facility] Last Admin: 08/08/17 10:00 Dose: 25 mg Sodium Chloride (Sodium Chloride 0.9%) 1,000 mls @ 100 mls/hr IV .Q10H [facility] Last Admin: 08/06/17 23:00 Dose: 100 mls/hr Ceftriaxone Sodium (Rocephin 1 Gram Ivpb) 1 gm in 100 mls @ 100 mls/hr IVPB DAILY [facility] PRN Reason: Protocol Last Admin: 08/08/17 11:42 Dose: 100 mls/hr Levothyroxine Sodium (Synthroid) 75 mcg PO QAM [facility] Last Admin: 08/08/17 10:00 Dose: 75 mcg Losartan Potassium (Cozaar) 100 mg PO DAILY [facility] Last Admin: 08/08/17 10:00 Dose: 100 mg Metoprolol Succinate (Toprol Xl) 75 mg PO HS [facility] Last Admin: 08/07/17 21:57 Dose: 75 mg Morphine Sulfate (Morphine) 1 mg IVP Q4H PRN PRN Reason: Pain, severe (8-10) Last Admin: 08/07/17 23:52 Dose: 1 mg Pantoprazole Sodium (Protonix Ec Tab) 40 mg PO 0600 [facility] Last Admin: 08/08/17 06:22 Dose: 40 mg - Labs Labs: 08/07/17 09:45 08/07/17 09:45 PT 11.5 SECONDS (9.4-12.5) 08/06/17 12:08 INR 1.00 (0.93-1.08) 08/06/17 12:08 APTT 28.3 Seconds (25.1-36.5) 08/06/17 12:08 Attending/Attestation - Attestation I have personally seen and examined this patient.: Yes I have fully participated in the care of the patient.: Yes I have reviewed all pertinent clinical information, including history, physical exam and plan: Yes Notes (Text): I have seen and examined the patient at bedside. Agree with the above note with the following additions/ exceptions: Briefly this is 86 year old female with history of HTN, Diastolic Dysfunction, Hypercholesterolemia, Raynauds, Hypothyroid, GERD, Rajput's Esophagus and breast cancer who came for evaluation of left lower extremity pain and weakness. Imaging reviewed.MRI of lumbar spine pending. Will order for PT eval. Upon discharge patient will follow up with Dr Hernandez.
[2017-08-07] MEDS: Metoprolol Succinate 25 mg XL Tab PO SCH (21:57)
[2017-08-07] MEDS: Cholecalciferol 1,000 INTLU TAB PO SCH (21:58)
[2017-08-08] MEDS: Pantoprazole 40 mg EC Tab PO SCH (06:22)
[2017-08-08] MEDS: Levothyroxine 75 MCG TAB PO SCH (10:00)
[2017-08-08] MEDS ORDERED: MethylPREDNISolone 40 mg Vial IVP ONE (11:16)
[2017-08-08] MEDS: cefTRIAXone 1 gm 1 GM/100 ML BAG IVPB SCH (11:42)
[2017-08-08] MEDS: Enoxaparin 40 mg Syringe SC SCH (12:07)
--- NOTE | 2017-08-08 13:45 | CP.PCM.PN ---
<Kamran Noonan - Last Filed: 08/08/17 13:30> Subjective - Date & Time of Evaluation Date of Evaluation: 08/08/17 Time of Evaluation: 13:30 - Subjective Subjective: Patient seen and examined at bedside. Still complaining of pain in the leg. No other complaints at this time Objective - Vital Signs/Intake and Output Vital Signs (last 24 hours): Temp Pulse Resp BP Pulse Ox 97.8 F 64 20 124/59 L 96 08/08/17 06:00 08/08/17 12:06 08/08/17 06:00 08/08/17 12:06 08/08/17 06:00 Intake and Output: 08/08/17 08/08/17 06:59 18:59 Intake Total 480 Balance 480 - Medications Medications: Current Medications Acetaminophen (Tylenol 325mg Tab) 650 mg PO Q6H PRN PRN Reason: Pain, Mild (1-3) Amitriptyline HCl (Elavil) 37.5 mg PO HS [facility] Last Admin: 08/07/17 21:59 Dose: 37.5 mg Amlodipine Besylate (Norvasc) 5 mg PO DAILY [facility] Last Admin: 08/08/17 12:06 Dose: 5 mg Aspirin (Ecotrin) 81 mg PO HS [facility] Last Admin: 08/07/17 21:59 Dose: 81 mg Atorvastatin Calcium (Lipitor) 20 mg PO HS [facility] Last Admin: 08/07/17 21:58 Dose: 20 mg Cholecalciferol (Vitamin D) 2,000 intlu PO HS [facility] Last Admin: 08/07/17 21:58 Dose: 2,000 intlu Diphenhydramine HCl (Benadryl) 25 mg PO HS [facility] Last Admin: 08/07/17 21:57 Dose: 25 mg Enoxaparin Sodium (Lovenox) 40 mg SC DAILY [facility] PRN Reason: Protocol Last Admin: 08/08/17 12:07 Dose: 40 mg Gabapentin (Neurontin) 300 mg PO TID PRN; Protocol PRN Reason: Pain, moderate (4-7) Hydrochlorothiazide (Hydrodiuril) 25 mg PO DAILY [facility] Last Admin: 08/08/17 10:00 Dose: 25 mg Sodium Chloride (Sodium Chloride 0.9%) 1,000 mls @ 100 mls/hr IV .Q10H [facility] Last Admin: 08/06/17 23:00 Dose: 100 mls/hr Ceftriaxone Sodium (Rocephin 1 Gram Ivpb) 1 gm in 100 mls @ 100 mls/hr IVPB DAILY [facility] PRN Reason: Protocol Last Admin: 08/08/17 11:42 Dose: 100 mls/hr Levothyroxine Sodium (Synthroid) 75 mcg PO QAM [facility] Last Admin: 08/08/17 10:00 Dose: 75 mcg Losartan Potassium (Cozaar) 100 mg PO DAILY [facility] Last Admin: 08/08/17 10:00 Dose: 100 mg Metoprolol Succinate (Toprol Xl) 75 mg PO HS [facility] Last Admin: 08/07/17 21:57 Dose: 75 mg Morphine Sulfate (Morphine) 1 mg IVP Q4H PRN PRN Reason: Pain, severe (8-10) Last Admin: 08/07/17 23:52 Dose: 1 mg Pantoprazole Sodium (Protonix Ec Tab) 40 mg PO 0600 [facility] Last Admin: 08/08/17 06:22 Dose: 40 mg - Labs Labs: 08/07/17 09:45 08/07/17 09:45 PT 11.5 SECONDS (9.4-12.5) 08/06/17 12:08 INR 1.00 (0.93-1.08) 08/06/17 12:08 APTT 28.3 Seconds (25.1-36.5) 08/06/17 12:08 - Constitutional Appears: Well - Head Exam Head Exam: ATRAUMATIC, NORMAL INSPECTION, NORMOCEPHALIC - Eye Exam Eye Exam: EOMI, Normal appearance, PERRL Pupil Exam: NORMAL ACCOMODATION, PERRL - ENT Exam ENT Exam: Mucous Membranes Moist, Normal Exam - Neck Exam Neck Exam: Full ROM, Normal Inspection. absent: Lymphadenopathy - Respiratory Exam Respiratory Exam: Clear to Ausculation Bilateral, NORMAL BREATHING PATTERN - Cardiovascular Exam Cardiovascular Exam: REGULAR RHYTHM, +S1, +S2. absent: Murmur - GI/Abdominal Exam GI & Abdominal Exam: Soft, Normal Bowel Sounds. absent: Tenderness - Extremities Exam Extremities Exam: Full ROM, Normal Capillary Refill, Normal Inspection. absent : Joint Swelling, Pedal Edema - Back Exam Back Exam: NORMAL INSPECTION - Neurological Exam Neurological Exam: Alert, Awake, CN II-XII Intact, Normal Gait, Oriented x3 Neuro motor strength exam: Left Lower Extremity: 2/1 - Psychiatric Exam Psychiatric exam: Normal Affect, Normal Mood - Skin Skin Exam: Dry, Intact, Normal Color, Warm Assessment and Plan - Assessment and Plan (Free Text) Assessment: (1) Left leg weakness Assessment and Plan: All Xrays negative MRI shows multiple foraminal narrowing as well as herniated disc at L3-L4 and sclerotic lesion in body of S1 Morphine and Steroids PT/OT Status: Acute Priority: Medium (2) Hypothyroidism Assessment and Plan: Synthroid 75 PO QAM Status: Acute (3) HTN (hypertension) Assessment and Plan: Norvasc 5 PO QD HCTZ 25 PO QD Metoprolol Succ 75 PO HS Valsartan 160 PO QD Status: Chronic Priority: High (4) Diastolic dysfunction without heart failure Assessment and Plan: ASA 81mg PO HS Status: Chronic Priority: High (5) Hypercholesteremia Assessment and Plan: Lipitor 20 PO HS Status: Chronic Priority: High (6) Vitamin D deficiency Assessment and Plan: Vitamin D 2000 PO HS Status: Acute (7) Insomnia Assessment and Plan: Amitriptyline 37.5 PO HS Status: Chronic Priority: Low (8) Prophylactic measure Assessment and Plan: Lovenox 40 SC QD SCD No GI PPX indicated at this time Status: Acute Priority: Medium <Massimo Baker - Last Filed: 08/09/17 15:55> Objective - Vital Signs/Intake and Output Vital Signs (last 24 hours): Temp Pulse Resp BP Pulse Ox 97.1 F L 75 19 159/73 H 96 08/09/17 14:00 08/09/17 14:00 08/09/17 14:00 08/09/17 14:00 08/09/17 14:00 Intake and Output: 08/09/17 08/09/17 06:59 18:59 Intake Total 360 Output Total 2 Balance -2 360 - Medications Medications: Current Medications Acetaminophen (Tylenol 325mg Tab) 650 mg PO Q6H PRN PRN Reason: Pain, Mild (1-3) Amitriptyline HCl (Elavil) 37.5 mg PO HS [facility] Last Admin: 08/08/17 22:15 Dose: 37.5 mg Amlodipine Besylate (Norvasc) 5 mg PO DAILY [facility] Last Admin: 08/09/17 10:19 Dose: 5 mg Aspirin (Ecotrin) 81 mg PO HS [facility] Last Admin: 08/08/17 22:15 Dose: 81 mg Atorvastatin Calcium (Lipitor) 20 mg PO HS [facility] Last Admin: 08/08/17 22:14 Dose: 20 mg Cholecalciferol (Vitamin D) 2,000 intlu PO HS [facility] Last Admin: 08/08/17 22:14 Dose: 2,000 intlu Diphenhydramine HCl (Benadryl) 25 mg PO HS [facility] Last Admin: 08/08/17 22:16 Dose: 25 mg Enoxaparin Sodium (Lovenox) 40 mg SC DAILY [facility] PRN Reason: Protocol Last Admin: 08/09/17 10:18 Dose: 40 mg Gabapentin (Neurontin) 300 mg PO TID PRN; Protocol PRN Reason: Pain, moderate (4-7) Last Admin: 08/09/17 14:06 Dose: 300 mg Hydrochlorothiazide (Hydrodiuril) 25 mg PO DAILY [facility] Last Admin: 08/09/17 10:19 Dose: 25 mg Sodium Chloride (Sodium Chloride 0.9%) 1,000 mls @ 100 mls/hr IV .Q10H [facility] Last Admin: 08/09/17 10:23 Dose: 100 mls/hr Ceftriaxone Sodium (Rocephin 1 Gram Ivpb) 1 gm in 100 mls @ 100 mls/hr IVPB DAILY [facility] PRN Reason: Protocol Last Admin: 08/09/17 10:20 Dose: 100 mls/hr Levothyroxine Sodium (Synthroid) 75 mcg PO QAM [facility] Last Admin: 08/09/17 10:18 Dose: 75 mcg Losartan Potassium (Cozaar) 100 mg PO DAILY [facility] Last Admin: 08/09/17 10:19 Dose: 100 mg Metoprolol Succinate (Toprol Xl) 75 mg PO HS [facility] Last Admin: 08/08/17 22:14 Dose: 75 mg Morphine Sulfate (Morphine) 1 mg IVP Q4H PRN PRN Reason: Pain, severe (8-10) Last Admin: 08/07/17 23:52 Dose: 1 mg Pantoprazole Sodium (Protonix Ec Tab) 40 mg PO 0600 [facility] Last Admin: 08/09/17 05:58 Dose: 40 mg - Labs Labs: 08/07/17 09:45 08/07/17 09:45 PT 11.5 SECONDS (9.4-12.5) 08/06/17 12:08 INR 1.00 (0.93-1.08) 08/06/17 12:08 APTT 28.3 Seconds (25.1-36.5) 08/06/17 12:08 Attending/Attestation - Attestation I have personally seen and examined this patient.: Yes I have fully participated in the care of the patient.: Yes I have reviewed all pertinent clinical information, including history, physical exam and plan: Yes Notes (Text): I have seen and examined the patient at bedside. Agree with the above note with the following additions/ exceptions: Briefly this is 86 year old female with history of HTN, Diastolic Dysfunction, Hypercholesterolemia, Raynauds, Hypothyroid, GERD, Rajput's Esophagus and breast cancer who came for evaluation of left lower extremity pain and weakness. Imaging reviewed. MRI of lumbar spine shows multiple foraminal narrowing as well as herniated disc at L3- L4 and sclerotic lesion in body of S1. Discussed in detail with the patient and family (brother and sister in law). They do not want neurosurgery evaluation. We have already discussed MRI findings with her private doctors. Patient is scheduled for PET scan as an outpatient next week. PT recommended TCU vs HWS. Patient refused to go to TCU. She lives alone and was independent prior to this admission. She wants SW and CM to arrange for services prior to her discharge. Upon discharge patient will follow up with Dr Hernandez.
[2017-08-08] MEDS: Sodium Chloride 0.9% 1,000 ML IV SCH (14:49)
[2017-08-08] MEDS: Cholecalciferol 1,000 INTLU TAB PO SCH (22:14)
[2017-08-08] MEDS: Metoprolol Succinate 25 mg XL Tab PO SCH (22:14)
[2017-08-09] MEDS: Pantoprazole 40 mg EC Tab PO SCH (05:58)
[2017-08-09] MEDS: Enoxaparin 40 mg Syringe SC SCH (10:18)
[2017-08-09] MEDS: Levothyroxine 75 MCG TAB PO SCH (10:18)
[2017-08-09] MEDS: cefTRIAXone 1 gm 1 GM/100 ML BAG IVPB SCH (10:20)
[2017-08-09] MEDS: Sodium Chloride 0.9% 1,000 ML IV SCH ×2 (10:23→20:40)
--- NOTE | 2017-08-09 13:49 | PCM.RRT ---
TOW BAR DRIVER Nurse Assessment - Situation Date: 08/09/17 Time TOW BAR DRIVER was called: 13:45 TOW BAR DRIVER Responder Arrival Time: 13:45 TOW BAR DRIVER Location:: [address] [place] [address] Room Number: 578-2 TOW BAR DRIVER Called By: RN - IV IV Inserted during TOW BAR DRIVER?: No - Respiratory Oxygen Delivery Method: Room Air Received Nebulizer Treatments:: No Was the Patient Ventilated with Bag/Mask 100% O2?: No Secretions Suctioned?: No Was the Patient Intubated?: No Was the Patient Placed on a Ventilator?: No CPR started during TOW BAR DRIVER?: No - Dana Coma Scale Coma Scale Eye Opening: Spontaneous Coma Scale Motor: Obeys Commands Movement Coma Scale Verbal: Oriented - Recommendations 5) TOW BAR DRIVER Level of Care Recommendations: Remain in current setting Notifications: Attending Physician I.Reason for TOW BAR DRIVER - A) Acute Change in Patient: Subjective: Patient spilt her soda. 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 She was helped up be the nurse. Denies any pain, numbness or tingling. Patient did not fall, she only had a difficulty time getting back into the the chair. The code star was called because the patients knee touched the ground. No imaging needed at this time. We will monitor the patient.
--- NOTE | 2017-08-09 17:21 | CP.PCM.PN ---
Subjective - Date & Time of Evaluation Date of Evaluation: 08/09/17 Time of Evaluation: 17:15 - Subjective Subjective: Patient seen and examined at bedside. Still complaining of some weakness in the leg but minimal pain. Family at bedside. Discussed with patient and patients family in depth about rehab for the patient. Patient agreeable to TCU for rehab. No other complaints at this time. Objective - Vital Signs/Intake and Output Vital Signs (last 24 hours): Temp Pulse Resp BP Pulse Ox 97.1 F L 75 19 159/73 H 96 08/09/17 14:00 08/09/17 14:00 08/09/17 14:00 08/09/17 14:00 08/09/17 14:00 Intake and Output: 08/09/17 08/09/17 06:59 18:59 Intake Total 360 Output Total 2 Balance -2 360 - Medications Medications: Current Medications Acetaminophen (Tylenol 325mg Tab) 650 mg PO Q6H PRN PRN Reason: Pain, Mild (1-3) Amitriptyline HCl (Elavil) 37.5 mg PO [facility] Last Admin: 08/08/17 22:15 Dose: 37.5 mg Amlodipine Besylate (Norvasc) 5 mg PO DAILY [facility] Last Admin: 08/09/17 10:19 Dose: 5 mg Aspirin (Ecotrin) 81 mg PO [facility] Last Admin: 08/08/17 22:15 Dose: 81 mg Atorvastatin Calcium (Lipitor) 20 mg PO HS [facility] Last Admin: 08/08/17 22:14 Dose: 20 mg Cholecalciferol (Vitamin D) 2,000 intlu PO [facility] Last Admin: 08/08/17 22:14 Dose: 2,000 intlu Diphenhydramine HCl (Benadryl) 25 mg PO [facility] Last Admin: 08/08/17 22:16 Dose: 25 mg Enoxaparin Sodium (Lovenox) 40 mg SC DAILY [facility] PRN Reason: Protocol Last Admin: 08/09/17 10:18 Dose: 40 mg Gabapentin (Neurontin) 300 mg PO TID PRN; Protocol PRN Reason: Pain, moderate (4-7) Last Admin: 08/09/17 14:06 Dose: 300 mg Hydrochlorothiazide (Hydrodiuril) 25 mg PO DAILY [facility] Last Admin: 08/09/17 10:19 Dose: 25 mg Sodium Chloride (Sodium Chloride 0.9%) 1,000 mls @ 100 mls/hr IV .Q10H [facility] Last Admin: 08/09/17 10:23 Dose: 100 mls/hr Ceftriaxone Sodium (Rocephin 1 Gram Ivpb) 1 gm in 100 mls @ 100 mls/hr IVPB DAILY [facility] PRN Reason: Protocol Last Admin: 08/09/17 10:20 Dose: 100 mls/hr Levothyroxine Sodium (Synthroid) 75 mcg PO QAM [facility] Last Admin: 08/09/17 10:18 Dose: 75 mcg Losartan Potassium (Cozaar) 100 mg PO DAILY [facility] Last Admin: 08/09/17 10:19 Dose: 100 mg Metoprolol Succinate (Toprol Xl) 75 mg PO HS [facility] Last Admin: 08/08/17 22:14 Dose: 75 mg Morphine Sulfate (Morphine) 1 mg IVP Q4H PRN PRN Reason: Pain, severe (8-10) Last Admin: 08/07/17 23:52 Dose: 1 mg Pantoprazole Sodium (Protonix Ec Tab) 40 mg PO 0600 [facility] Last Admin: 08/09/17 05:58 Dose: 40 mg - Labs Labs: 08/07/17 09:45 08/07/17 09:45 PT 11.5 SECONDS (9.4-12.5) 08/06/17 12:08 INR 1.00 (0.93-1.08) 08/06/17 12:08 APTT 28.3 Seconds (25.1-36.5) 08/06/17 12:08 - Constitutional Appears: Well - Head Exam Head Exam: ATRAUMATIC, NORMAL INSPECTION, NORMOCEPHALIC - Eye Exam Eye Exam: EOMI, Normal appearance, PERRL Pupil Exam: NORMAL ACCOMODATION, PERRL - ENT Exam ENT Exam: Mucous Membranes Moist, Normal Exam - Neck Exam Neck Exam: Full ROM, Normal Inspection. absent: Lymphadenopathy - Respiratory Exam Respiratory Exam: Clear to Ausculation Bilateral, NORMAL BREATHING PATTERN - Cardiovascular Exam Cardiovascular Exam: REGULAR RHYTHM, +S1, +S2. absent: Murmur - GI/Abdominal Exam GI & Abdominal Exam: Soft, Normal Bowel Sounds. absent: Tenderness - Extremities Exam Extremities Exam: Full ROM, Normal Capillary Refill, Normal Inspection. absent : Joint Swelling, Pedal Edema - Back Exam Back Exam: NORMAL INSPECTION - Neurological Exam Neurological Exam: Alert, Awake, CN II-XII Intact, Normal Gait, Oriented x3 Neuro motor strength exam: Left Upper Extremity: 5, Right Upper Extremity: 5, Left Lower Extremity: 3, Right Lower Extremity: 5 - Psychiatric Exam Psychiatric exam: Normal Affect, Normal Mood - Skin Skin Exam: Dry, Intact, Normal Color, Warm Assessment and Plan - Assessment and Plan (Free Text) Assessment: (1) Left leg weakness Assessment and Plan: All Xrays negative MRI shows multiple foraminal narrowing as well as herniated disc at L3-L4 and sclerotic lesion in body of S1 Morphine and gabapentin PT/OT Status: Acute Priority: Medium (2) Hypothyroidism Assessment and Plan: Synthroid 75 PO QAM Status: Acute (3) HTN (hypertension) Assessment and Plan: Norvasc 5 PO QD HCTZ 25 PO QD Metoprolol Succ 75 PO HS Valsartan 160 PO QD Status: Chronic Priority: High (4) Diastolic dysfunction without heart failure Assessment and Plan: ASA 81mg PO HS Status: Chronic Priority: High (5) Hypercholesteremia Assessment and Plan: Lipitor 20 PO HS Status: Chronic Priority: High (6) Vitamin D deficiency Assessment and Plan: Vitamin D 2000 PO HS Status: Acute (7) Insomnia Assessment and Plan: Amitriptyline 37.5 PO HS Status: Chronic Priority: Low (8) Prophylactic measure Assessment and Plan: Lovenox 40 SC QD SCD No GI PPX indicated at this time Status: Acute Priority: Medium Dispo: Patient agreeble for TCU. Will follow up eval tomorrow.
[2017-08-09] MEDS: Cholecalciferol 1,000 INTLU TAB PO SCH (22:36)
[2017-08-09] MEDS: Metoprolol Succinate 25 mg XL Tab PO SCH (22:37)
[2017-08-10] MEDS: Pantoprazole 40 mg EC Tab PO SCH (06:10)
[2017-08-10] MEDS: Sodium Chloride 0.9% 1,000 ML IV SCH (06:11)
[2017-08-10] MEDS ORDERED: Morphine 4 mg/ml ISec IVP PRN (07:10)
[2017-08-10 08:49] LABS: BASO # 0.01 K/mm3 (0.0-2.0); BASO % 0.2 % (0.0-3.0); EOS % 0.6 % (1.5-5.0); GRAN # 3.34 (1.4-6.5); GRAN % 64.9 % (50.0-68.0); HEMOGLOBIN 10.4 g/dL (12.0-16.0); LYMPH # 1.2 (1.2-3.4); LYMPH % 23.2 % (22.0-35.0); MEAN CELL VOLUME 93.4 fl (80.0-105.0); MEAN CORPUSCULAR HEMOGLOBIN 31.3 pg (25.0-35.0); MEAN CORPUSCULAR HGB CONC 33.5 g/dl (31.0-37.0); MEAN PLATELET VOLUME 9.7 fl (7.0-11.0); MONO # 0.6 (0.1-0.6); MONO % 11.1 % (1.0-6.0); RBC 3.32 10^6/uL (3.5-6.1); RED CELL DISTRIBUTION WIDTH 14.3 % (11.5-14.5); WHITE BLOOD COUNT 5.1 10^3/ul (4.5-11.0)
[2017-08-10 09:01] LABS: ALB/GLOB RATIO 1.5 (1.1-1.8); ALBUMIN 4.1 g/dL (3.0-4.8); ALT/SGPT 27 U/L (7-56); AST/SGOT 25 U/L (14-36); BLOOD UREA NITROGEN 11 mg/dL (7-21); CALCIUM 9.7 mg/dL (8.4-10.5); GFR AFRICAN-AMERICAN > 60; GFR NON-AFRICAN AMERICAN 60
--- NOTE | 2017-08-10 11:06 | CP.PCM.PN ---
Subjective - Date & Time of Evaluation Date of Evaluation: 08/10/17 Time of Evaluation: 11:02 - Subjective Subjective: discussed case with resident reviewed MRI Pt has profound weakness of entire Left leg with no significant c/o pain or nuumbness History of just completing course of chemotherapy Weakness transiently improved with one dose steroids MRI shos mid lumbar spinal stenosis which was previously seen on 2013 study Presentation of symptoms not consistent with MRI findings Would suggest other workup to be done, including CT head and abd/pelvis Also neurology eval to consider possible non-compressive reasons for unilateral leg weakness Objective - Vital Signs/Intake and Output Vital Signs (last 24 hours): Temp Pulse Resp BP Pulse Ox 97.8 F 62 17 127/70 100 08/10/17 08:35 08/10/17 08:35 08/10/17 08:35 08/10/17 08:35 08/10/17 08:35 Intake and Output: 08/10/17 08/10/17 06:59 18:59 Intake Total 1200 Balance 1200 - Medications Medications: Current Medications Amitriptyline HCl (Elavil) 37.5 mg PO HS [facility] Last Admin: 08/09/17 22:39 Dose: 37.5 mg Amlodipine Besylate (Norvasc) 5 mg PO DAILY [facility] Last Admin: 08/09/17 10:19 Dose: 5 mg Aspirin (Ecotrin) 81 mg PO HS [facility] Last Admin: 08/09/17 22:35 Dose: 81 mg Atorvastatin Calcium (Lipitor) 20 mg PO HS [facility] Last Admin: 08/09/17 22:39 Dose: 20 mg Cholecalciferol (Vitamin D) 2,000 intlu PO HS [facility] Last Admin: 08/09/17 22:36 Dose: 2,000 intlu Dexamethasone (Decadron Inj) 4 mg IVP Q6H [facility] Diphenhydramine HCl (Benadryl) 25 mg PO HS [facility] Last Admin: 08/09/17 22:35 Dose: 25 mg Enoxaparin Sodium (Lovenox) 40 mg SC DAILY [facility] PRN Reason: Protocol Last Admin: 08/09/17 10:18 Dose: 40 mg Gabapentin (Neurontin) 300 mg PO TID PRN; Protocol PRN Reason: Pain, moderate (4-7) Last Admin: 08/10/17 07:57 Dose: 300 mg Hydrochlorothiazide (Hydrodiuril) 25 mg PO DAILY [facility] Last Admin: 08/09/17 10:19 Dose: 25 mg Ceftriaxone Sodium (Rocephin 1 Gram Ivpb) 1 gm in 100 mls @ 100 mls/hr IVPB DAILY [facility] PRN Reason: Protocol Stop: 08/11/17 10:01 Last Admin: 08/09/17 10:20 Dose: 100 mls/hr Levothyroxine Sodium (Synthroid) 75 mcg PO QAM [facility] Last Admin: 08/09/17 10:18 Dose: 75 mcg Losartan Potassium (Cozaar) 100 mg PO DAILY [facility] Last Admin: 08/09/17 10:19 Dose: 100 mg Metoprolol Succinate (Toprol Xl) 75 mg PO HS [facility] Last Admin: 08/09/17 22:37 Dose: 75 mg Morphine Sulfate (Morphine) 2 mg IVP Q4H PRN PRN Reason: Pain, severe (8-10) - Labs Labs: 08/10/17 08:30 08/10/17 08:30 PT 11.5 SECONDS (9.4-12.5) 08/06/17 12:08 INR 1.00 (0.93-1.08) 08/06/17 12:08 APTT 28.3 Seconds (25.1-36.5) 08/06/17 12:08
[2017-08-10] MEDS: Levothyroxine 75 MCG TAB PO SCH (11:12)
[2017-08-10] MEDS: Enoxaparin 40 mg Syringe SC SCH (11:12)
--- NOTE | 2017-08-10 11:53 | CP.PCM.CON ---
History of Present Illness - History of Present Illness History of Present Illness: Neuro Consult note for Dr. Decker 86yo female PMHx HTN, diastolic dysfunction, HLD, Raynaud's, hypothyroidism, GERD, Rajput's esophagus, and breast ca presented to [facility] ED on 08/06 with LLE weakness. Patient was admitted to the floors where she had a Code Star on 08/09 after she spilled some soda on the ground and upon bending down to pick it up, she was unable to. Patient did not hit her head or have any LOC or a syncopal episode. During her hospital course patient had an MRI that showed multiple foraminal narrowings as well as herniated disc at L3-L4 and sclerotic lesion in body of S1. Neurosurgery was consulted who then requested neurology consult for unilateral leg weakness. Patient was seen and examined this morning with her brother at bedside. She reported no acute events and deneid any bladder/bowel incontinence. Patient did complain of the shooting pain down her left leg which she has received epidurals in the past for. She denied acute complaints of headache, dizziness, chest pain, palpitations, SOB, cough, abd pain, nausea, vomiting, swelling in her legs b/l. PMHx: HTN, Diastolic Dysfunction, Hypercholesterolemia, Raynauds, Hypothyroid, GERD, Barretts Esophagus and breast cancer PSurgHx: Appendectomy 1942, Left Cataract 1998, Right Cataract 1999, Lumbar Laminectomy 2002, Cervical Laminectomy 2004, Bunionectomy w/ Hammertoe 2010, Cardiac Cath x3, Epidural x3, D & C, Endoscopy, Colonoscopy FamHx: Mother had CHF and in her 70s, Father had COPD and in his 80s. SocHx: Denies smoking, drinking or drug use All: NKDA Meds: pls see chart Review of Systems - Review of Systems All systems: reviewed and no additional remarkable complaints except Review of Systems: as per HPI Past Patient History - Infectious Disease Hx of Infectious Diseases: None - Tetanus Immunizations Tetanus Immunization: Unknown - Past Social History Smoking Status: Never Smoked - CARDIAC Hx Cardiac Disorders: Yes Hx Hypercholesterolemia: Yes Hx Hypertension: Yes - PULMONARY Hx Chronic Obstructive Pulmonary Disease (COPD): Yes - NEUROLOGICAL Hx Neurological Disorder: No - HEENT Hx HEENT Problems: Yes Hx Cataracts: Yes - RENAL Hx Chronic Kidney Disease: No - ENDOCRINE/METABOLIC Hx Hypothyroidism: Yes - HEMATOLOGICAL/ONCOLOGICAL Hx Blood Disorders: No - INTEGUMENTARY Hx Dermatological Problems: No - MUSCULOSKELETAL/RHEUMATOLOGICAL Hx Arthritis: Yes - GASTROINTESTINAL Hx Gastrointestinal Disorders: Yes (BARETT'S ESOPHAGUS,APPENDECTOMY) Hx Gall Bladder Disease: Yes (CHOLECYSTECTOMY) - GENITOURINARY/GYNECOLOGICAL Hx Genitourinary Disorders: Yes Hx Urinary Tract Infection: Yes (03-16-12) - PSYCHIATRIC Hx Psychophysiologic Disorder: No Hx Emotional Abuse: No Hx Physical Abuse: No - SURGICAL HISTORY Hx Appendectomy: Yes Hx Cholecystectomy: Yes Other/Comment: rt mastectomy rt breast ca - ANESTHESIA Hx Anesthesia Reactions: No Hx Malignant Hyperthermia: No Meds Allergies/Adverse Reactions: Allergies Allergy/AdvReac Type Severity Reaction Status Date / Time No Known Allergies Allergy Verified 12/14/15 15:43 - Medications Medications: Current Medications Amitriptyline HCl (Elavil) 37.5 mg PO HS [facility] Last Admin: 08/09/17 22:39 Dose: 37.5 mg Amlodipine Besylate (Norvasc) 5 mg PO DAILY [facility] Last Admin: 08/10/17 11:13 Dose: 5 mg Aspirin (Ecotrin) 81 mg PO HS [facility] Last Admin: 08/09/17 22:35 Dose: 81 mg Atorvastatin Calcium (Lipitor) 20 mg PO HS [facility] Last Admin: 08/09/17 22:39 Dose: 20 mg Cholecalciferol (Vitamin D) 2,000 intlu PO HS [facility] Last Admin: 08/09/17 22:36 Dose: 2,000 intlu Dexamethasone (Decadron Inj) 4 mg IVP Q6H [facility] Diphenhydramine HCl (Benadryl) 25 mg PO HS [facility] Last Admin: 08/09/17 22:35 Dose: 25 mg Enoxaparin Sodium (Lovenox) 40 mg SC DAILY [facility] PRN Reason: Protocol Last Admin: 08/10/17 11:12 Dose: 40 mg Gabapentin (Neurontin) 300 mg PO TID PRN; Protocol PRN Reason: Pain, moderate (4-7) Last Admin: 08/10/17 07:57 Dose: 300 mg Hydrochlorothiazide (Hydrodiuril) 25 mg PO DAILY [facility] Last Admin: 08/10/17 11:11 Dose: 25 mg Ceftriaxone Sodium (Rocephin 1 Gram Ivpb) 1 gm in 100 mls @ 100 mls/hr IVPB DAILY [facility] PRN Reason: Protocol Stop: 08/11/17 10:01 Last Admin: 08/09/17 10:20 Dose: 100 mls/hr Levothyroxine Sodium (Synthroid) 75 mcg PO QAM [facility] Last Admin: 08/10/17 11:12 Dose: 75 mcg Losartan Potassium (Cozaar) 100 mg PO DAILY [facility] Last Admin: 08/10/17 11:12 Dose: 100 mg Metoprolol Succinate (Toprol Xl) 75 mg PO HS [facility] Last Admin: 08/09/17 22:37 Dose: 75 mg Morphine Sulfate (Morphine) 2 mg IVP Q4H PRN PRN Reason: Pain, severe (8-10) Physical Exam - Constitutional Appears: Non-toxic, No Acute Distress - Head Exam Head Exam: ATRAUMATIC, NORMAL INSPECTION, NORMOCEPHALIC - Eye Exam Eye Exam: EOMI, Normal appearance, PERRL. absent: Conjunctival injection, Scleral icterus Pupil Exam: NORMAL ACCOMODATION - ENT Exam ENT Exam: Mucous Membranes Moist - Neck Exam Neck exam: Positive for: Full Rom - Respiratory Exam Respiratory Exam: NORMAL BREATHING PATTERN. absent: Accessory Muscle Use, Respiratory Distress - Cardiovascular Exam Cardiovascular Exam: +S1, +S2 - GI/Abdominal Exam GI & Abdominal Exam: Soft. absent: Tenderness - Rectal Exam Rectal Exam: Deferred - Extremities Exam Extremities exam: Positive for: normal capillary refill, normal inspection, pedal pulses present - Back Exam Back exam: NORMAL INSPECTION. absent: rash noted - Neurological Exam Neurological exam: Alert, CN II-XII Intact, Oriented x3 Additional comments: + straight leg raise 10 degrees LLE sensation intact b/l no pronator drift [id number] intact b/l no double vision b/l - Psychiatric Exam Psychiatric exam: Normal Affect, Normal Mood - Skin Skin Exam: Dry, Intact Results - Vital Signs Recent Vital Signs: Last Vital Signs Temp 97.8 F 08/10/17 08:35 Pulse 76 08/10/17 11:13 Resp 17 08/10/17 08:35 BP 124/80 08/10/17 11:13 Pulse Ox 100 08/10/17 08:35 - Labs Result Diagrams: 08/10/17 08:30 08/10/17 08:30 Labs: Laboratory Results - last 24 hr 08/10/17 08/10/17 08:30 08:30 WBC 5.1 RBC 3.32 L Hgb 10.4 L Hct 31.0 L MCV 93.4 MCH 31.3 MCHC 33.5 RDW 14.3 Plt Count 165 MPV 9.7 Gran % 64.9 Lymph % (Auto) 23.2 [place] % (Auto) 11.1 H Eos % (Auto) 0.6 L Baso % (Auto) 0.2 Gran # 3.34 Lymph # (Auto) 1.2 [place] # (Auto) 0.6 Eos # (Auto) 0.0 Baso # (Auto) 0.01 Sodium 143 Potassium 4.0 Chloride 107 Carbon Dioxide 24 Anion Gap 16 BUN 11 Creatinine 0.9 Est GFR ( Amer) > 60 Est GFR (Non-Af Amer) 60 Random Glucose 112 H Calcium 9.7 Phosphorus 2.8 Magnesium 1.7 Total Bilirubin 0.3 AST 25 ALT 27 Alkaline Phosphatase 58 Total Protein 6.9 Albumin 4.1 Globulin 2.8 Albumin/Globulin Ratio 1.5 Assessment & Plan - Assessment and Plan (Free Text) Assessment: 86yo female PMHx HTN, diastolic dysfunction, HLD, Raynaud's, hypothyroidism, GERD, Rajput's esophagus, and breast ca presented to [facility] ED on 08/06 with LLE weakness Plan: -f/u Brain MRI -recommend Toradol for pain -recommend Epidural outpatient -continue management as per primary Discussed with Dr. Jeronimo Parsons PGY2
[2017-08-10] MEDS ORDERED: Morphine 2 mg/ml ISec IVP PRN (12:36)
[2017-08-10] MEDS ORDERED: Iohexol 350 MG/100 ML VIAL ONE (12:57)
--- NOTE | 2017-08-10 14:55 | CT ---
PROCEDURE: CT Abdomen and Pelvis without intravenous contrast HISTORY: Left leg weakness COMPARISON: None. TECHNIQUE: Without contrast. Contrast dose: Radiation dose: Total exam DLP = 906 mGy-cm. This CT exam was performed using one or more of the following dose reduction techniques: Automated exposure control, adjustment of the mA and/or kV according to patient size, and/or use of iterative reconstruction technique. FINDINGS: LOWER THORAX: Small bilateral pleural effusions LIVER: Unremarkable. No gross lesion or ductal dilatation. GALLBLADDER AND BILE DUCTS: Gallbladder removed PANCREAS: Unremarkable. No gross lesion or ductal dilatation. SPLEEN: Unremarkable. ADRENALS: Unremarkable. No mass. KIDNEYS AND URETERS: Unremarkable. No hydronephrosis. No solid mass. VASCULATURE: Unremarkable. No aortic aneurysm. BOWEL: There is diverticulosis of the sigmoid colon. APPENDIX: Unremarkable. Normal appendix. PERITONEUM: Unremarkable. No free fluid. No free air. LYMPH NODES: Unremarkable. No enlarged lymph nodes. BLADDER: Unremarkable. REPRODUCTIVE: Unremarkable. 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 IMPRESSION: No acute findings
--- NOTE | 2017-08-10 15:07 | CP.PCM.PN ---
<Kamran Noonan - Last Filed: 08/10/17 15:04> Subjective - Date & Time of Evaluation Date of Evaluation: 08/10/17 Time of Evaluation: 15:04 - Subjective Subjective: Patient seen and examined at bedside. Still complaining of weakness in the lower extremity. No pain at this point in time. Agreed to be evaluated by neurosurgeon and neurology prior to going to TCU. Objective - Vital Signs/Intake and Output Vital Signs (last 24 hours): Temp Pulse Resp BP Pulse Ox 97.8 F 76 17 124/80 100 08/10/17 08:35 08/10/17 11:13 08/10/17 08:35 08/10/17 11:13 08/10/17 08:35 Intake and Output: 08/10/17 08/10/17 06:59 18:59 Intake Total 1200 Balance 1200 - Medications Medications: Current Medications Amitriptyline HCl (Elavil) 37.5 mg PO HS [facility] Last Admin: 08/09/17 22:39 Dose: 37.5 mg Amlodipine Besylate (Norvasc) 5 mg PO DAILY [facility] Last Admin: 08/10/17 11:13 Dose: 5 mg Amoxicillin/Clavulanate Potassium (Augmentin 875 Mg-125 Mg Tab) 1 tab PO Q12 [facility] PRN Reason: Protocol Stop: 08/13/17 12:31 Aspirin (Ecotrin) 81 mg PO HS [facility] Last Admin: 08/09/17 22:35 Dose: 81 mg Atorvastatin Calcium (Lipitor) 20 mg PO HS [facility] Last Admin: 08/09/17 22:39 Dose: 20 mg Cholecalciferol (Vitamin D) 2,000 intlu PO HS [facility] Last Admin: 08/09/17 22:36 Dose: 2,000 intlu Dexamethasone (Decadron Inj) 4 mg IVP Q6H [facility] Diphenhydramine HCl (Benadryl) 25 mg PO HS [facility] Last Admin: 08/09/17 22:35 Dose: 25 mg Enoxaparin Sodium (Lovenox) 40 mg SC DAILY [facility] PRN Reason: Protocol Last Admin: 08/10/17 11:12 Dose: 40 mg Gabapentin (Neurontin) 300 mg PO TID PRN; Protocol PRN Reason: Pain, moderate (4-7) Last Admin: 08/10/17 07:57 Dose: 300 mg Hydrochlorothiazide (Hydrodiuril) 25 mg PO DAILY [facility] Last Admin: 08/10/17 11:11 Dose: 25 mg Levothyroxine Sodium (Synthroid) 75 mcg PO QAM [facility] Last Admin: 08/10/17 11:12 Dose: 75 mcg Losartan Potassium (Cozaar) 100 mg PO DAILY [facility] Last Admin: 08/10/17 11:12 Dose: 100 mg Metoprolol Succinate (Toprol Xl) 75 mg PO HS [facility] Last Admin: 08/09/17 22:37 Dose: 75 mg Morphine Sulfate (Morphine) 2 mg IVP Q4H PRN PRN Reason: Pain, severe (8-10) - Labs Labs: 08/10/17 08:30 08/10/17 08:30 PT 11.5 SECONDS (9.4-12.5) 08/06/17 12:08 INR 1.00 (0.93-1.08) 08/06/17 12:08 APTT 28.3 Seconds (25.1-36.5) 08/06/17 12:08 - Additional Findings Additional findings: - Constitutional Appears: Well - Head Exam Head Exam: ATRAUMATIC, NORMAL INSPECTION, NORMOCEPHALIC - Eye Exam Eye Exam: EOMI, Normal appearance, PERRL Pupil Exam: NORMAL ACCOMODATION, PERRL - ENT Exam ENT Exam: Mucous Membranes Moist, Normal Exam - Neck Exam Neck Exam: Full ROM, Normal Inspection. absent: Lymphadenopathy - Respiratory Exam Respiratory Exam: Clear to Ausculation Bilateral, NORMAL BREATHING PATTERN - Cardiovascular Exam Cardiovascular Exam: REGULAR RHYTHM, +S1, +S2. absent: Murmur - GI/Abdominal Exam GI & Abdominal Exam: Soft, Normal Bowel Sounds. absent: Tenderness - Extremities Exam Extremities Exam: Full ROM, Normal Capillary Refill, Normal Inspection. absent : Joint Swelling, Pedal Edema - Back Exam Back Exam: NORMAL INSPECTION - Neurological Exam Neurological Exam: Alert, Awake, CN II-XII Intact, Normal Gait, Oriented x3 Neuro motor strength exam: Left Upper Extremity: 5, Right Upper Extremity: 5, Left Lower Extremity: 3, Right Lower Extremity: 5 - Psychiatric Exam Psychiatric exam: Normal Affect, Normal Mood - Skin Skin Exam: Dry, Intact, Normal Color, Warm Assessment and Plan - Assessment and Plan (Free Text) Assessment: (1) Left leg weakness Assessment and Plan: All Xrays negative MRI shows multiple foraminal narrowing as well as herniated disc at L3-L4 and sclerotic lesion in body of S1 Morphine and gabapentin Decadron 4 Q6 Neurosurgery ([facility]) Neurology ([facility]) F/U MRI F/U CT PT/OT Status: Acute Priority: Medium (2) Hypothyroidism Assessment and Plan: Synthroid 75 PO QAM Status: Acute (3) HTN (hypertension) Assessment and Plan: Norvasc 5 PO QD HCTZ 25 PO QD Metoprolol Succ 75 PO HS Valsartan 160 PO QD Status: Chronic Priority: High (4) Diastolic dysfunction without heart failure Assessment and Plan: ASA 81mg PO HS Status: Chronic Priority: High (5) Hypercholesteremia Assessment and Plan: Lipitor 20 PO HS Status: Chronic Priority: High (6) Vitamin D deficiency Assessment and Plan: Vitamin D 2000 PO HS Status: Acute (7) Insomnia Assessment and Plan: Amitriptyline 37.5 PO HS Status: Chronic Priority: Low (8) Prophylactic measure Assessment and Plan: Lovenox 40 SC QD SCD No GI PPX indicated at this time Status: Acute Priority: Medium <Angel Aburto - Last Filed: 08/12/17 15:08> Objective - Vital Signs/Intake and Output Vital Signs (last 24 hours): Temp Pulse Resp BP Pulse Ox 97.8 F 79 18 140/72 100 08/11/17 14:00 08/11/17 14:00 08/11/17 14:00 08/11/17 14:00 08/11/17 14:00 - Labs Labs: 08/10/17 08:30 08/10/17 08:30 PT 11.5 SECONDS (9.4-12.5) 08/06/17 12:08 INR 1.00 (0.93-1.08) 08/06/17 12:08 APTT 28.3 Seconds (25.1-36.5) 08/06/17 12:08 Attending/Attestation - Attestation I have personally seen and examined this patient.: Yes I have fully participated in the care of the patient.: Yes I have reviewed all pertinent clinical information, including history, physical exam and plan: Yes Notes (Text): 08/12/17 15:06 Medical record note made by the resident after discussion with my direction and input after the patient was personally seen and examined by me. I have reviewed the chart and agree that the record accurately reflects by personal performance of the history, physical exam, data review, and medical decision-making, in the course for the patient. I have also personally directed the plan of care. 86 year old female with history of HTN, Diastolic Dysfunction, Hypercholesterolemia, Raynauds, Hypothyroid, GERD, Rajput's Esophagus and breast cancer who came for evaluation of left lower extremity pain and weakness. MRI of lumbar spine shows multiple foraminal narrowing as well as herniated disc at L3-L4 and sclerotic lesion in body of S1. We have already discussed MRI findings with her private doctors. Patient is scheduled for PET scan as an outpatient next week. Patient is having 2/5 weakness today in the left leg.Case was discussed with Neuro surgery and will get MRI of Brain .We will start patient on steroid and will also get Neurology evaluation.
[2017-08-10] MEDS ORDERED: Gadodiamide 287 MG/ML VIAL (15ML) IV ONE (15:36)
--- NOTE | 2017-08-10 16:13 | MRI ---
PROCEDURE: MRI BRAIN WITH AND WITHOUT CONTRAST HISTORY: focal weakness COMPARISON: MRI 11/12/2011 TECHNIQUE: Multiplanar, multisequence MR images of the brain were obtained with and without intravenous contrast enhancement. 15 cc of Omniscan FINDINGS: HEMORRHAGE: None DWI: No evidence of an acute or early subacute infarction. BRAIN PARENCHYMA: There is a small meningioma over the left frontal convexity measuring 10 mm thick by 26 mm AP x 23 mm height. This is unchanged. There is no associated edema or mass effect. Mild chronic microvascular changes are seen ENHANCEMENT: No abnormal intracranial enhancement. VENTRICLES: Unremarkable. No hydrocephalus. CRANIUM: Unremarkable. ORBITS: Grossly unremarkable. PARANASAL SINUSES/MASTOIDS: Clear VASCULAR SYSTEM: Skull base flow voids intact. OTHER FINDINGS: None . IMPRESSION: Small meningioma over the left frontal convexity. No acute intracranial findings
[2017-08-10] MEDS: Amoxicillin-Clav 875-125 mg Tab PO SCH ×2 (16:15→21:42)
[2017-08-10] MEDS: Dexamethasone 4 mg/1 ml IVP SCH ×2 (16:15→21:41)
[2017-08-10] MEDS: Cholecalciferol 1,000 INTLU TAB PO SCH (21:42)
[2017-08-10] MEDS: Metoprolol Succinate 25 mg XL Tab PO SCH (21:42)
[2017-08-10 22:30] VITALS: RESP 18
[2017-08-11] MEDS: Dexamethasone 4 mg/1 ml IVP SCH ×3 (03:56→14:03)
[2017-08-11] MEDS ORDERED: Morphine 2 mg/ml ISec IVP STA (07:33)
[2017-08-11] MEDS: Enoxaparin 40 mg Syringe SC SCH (10:23)
[2017-08-11] MEDS: Amoxicillin-Clav 875-125 mg Tab PO SCH (10:25)
[2017-08-11] MEDS: Levothyroxine 75 MCG TAB PO SCH (10:26)
--- NOTE | 2017-08-11 14:01 | CP.PCM.DIS ---
<Kamran Noonan - Last Filed: 08/11/17 13:52> Provider - Provider Date of Admission: 08/06/17 14:40 Attending physician: Angel Aburto MD Primary care physician: Marvin Reno MD Consults: Neuro: Decker Neurosurg: Chago Time Spent in preparation of Discharge (in minutes): 45 Hospital Course - Lab Results Lab Results: Micro Results 08/06/17 23:21 Urine,Clean Catch Urine Culture - Final Enterococcus Faecalis Most Recent Lab Values WBC 5.1 10^3/ul (4.5-11.0) 08/10/17 08:30 RBC 3.32 10^6/uL (3.5-6.1) L 08/10/17 08:30 Hgb 10.4 g/dL (12.0-16.0) L 08/10/17 08:30 Hct 31.0 % (36.0-48.0) L 08/10/17 08:30 MCV 93.4 fl (80.0-105.0) 08/10/17 08:30 MCH 31.3 pg (25.0-35.0) 08/10/17 08:30 MCHC 33.5 g/dl (31.0-37.0) 08/10/17 08:30 RDW 14.3 % (11.5-14.5) 08/10/17 08:30 Plt Count 165 10^3/uL (120.0-450.0) 08/10/17 08:30 MPV 9.7 fl (7.0-11.0) 08/10/17 08:30 Gran % 64.9 % (50.0-68.0) 08/10/17 08:30 Lymph % (Auto) 23.2 % (22.0-35.0) 08/10/17 08:30 [place] % (Auto) 11.1 % (1.0-6.0) H 08/10/17 08:30 Eos % (Auto) 0.6 % (1.5-5.0) L 08/10/17 08:30 Baso % (Auto) 0.2 % (0.0-3.0) 08/10/17 08:30 Gran # 3.34 (1.4-6.5) 08/10/17 08:30 Lymph # (Auto) 1.2 (1.2-3.4) 08/10/17 08:30 [place] # (Auto) 0.6 (0.1-0.6) 08/10/17 08:30 Eos # (Auto) 0.0 (0.0-0.7) 08/10/17 08:30 Baso # (Auto) 0.01 K/mm3 (0.0-2.0) 08/10/17 08:30 PT 11.5 SECONDS (9.4-12.5) 08/06/17 12:08 INR 1.00 (0.93-1.08) 08/06/17 12:08 APTT 28.3 Seconds (25.1-36.5) 08/06/17 12:08 pO2 80 mm/Hg (30-55) H 08/06/17 12:08 VBG pH 7.41 (7.32-7.43) 08/06/17 12:08 VBG pCO2 49.0 (40-60) 08/06/17 12:08 VBG HCO3 31.1 mmol/l (21-28) H 08/06/17 12:08 VBG Total CO2 32.6 mmol.L (22-28) H 08/06/17 12:08 VBG O2 Sat (Calc) 97.2 % (40-65) H 08/06/17 12:08 VBG Base Excess 5.3 mmol/L (0.0-2.0) H 08/06/17 12:08 VBG Potassium 4.6 mmol/L (3.6-5.2) 08/06/17 12:08 Sodium 135.0 mmol/L (132-148) 08/06/17 12:08 Chloride 102.0 mmol/L (98-107) 08/06/17 12:08 Glucose 128 mg/dl (65-105) H 08/06/17 12:08 Lactate 1.2 mmol/L (0.7-2.1) 08/06/17 12:08 FiO2 21.0 % 08/06/17 12:08 Sodium 143 mmol/L (132-148) 08/10/17 08:30 Potassium 4.0 mmol/L (3.6-5.0) 08/10/17 08:30 Chloride 107 mmol/L (98-107) 08/10/17 08:30 Carbon Dioxide 24 mmol/L (21-33) 08/10/17 08:30 Anion Gap 16 (10-20) 08/10/17 08:30 BUN 11 mg/dL (7-21) 08/10/17 08:30 Creatinine 0.9 mg/dl (0.7-1.2) 08/10/17 08:30 Est GFR ( Amer) > 60 08/10/17 08:30 Est GFR (Non-Af Amer) 60 08/10/17 08:30 Random Glucose 112 mg/dL (70-110) H 08/10/17 08:30 Calcium 9.7 mg/dL (8.4-10.5) 08/10/17 08:30 Phosphorus 2.8 mg/dL (2.5-4.5) 08/10/17 08:30 Magnesium 1.7 mg/dL (1.7-2.2) 08/10/17 08:30 Total Bilirubin 0.3 mg/dL (0.2-1.3) 08/10/17 08:30 AST 25 U/L (14-36) 08/10/17 08:30 ALT 27 U/L (7-56) 08/10/17 08:30 Alkaline Phosphatase 58 U/L (38-126) 08/10/17 08:30 Troponin I < 0.01 ng/mL 08/06/17 12:08 Total Protein 6.9 g/dL (5.8-8.3) 08/10/17 08:30 Albumin 4.1 g/dL (3.0-4.8) 08/10/17 08:30 Globulin 2.8 gm/dL 08/10/17 08:30 Albumin/Globulin Ratio 1.5 (1.1-1.8) 08/10/17 08:30 Venous Blood Potassium 4.6 mmol/L (3.6-5.2) 08/06/17 12:08 Urine Color Yellow (YELLOW) 08/06/17 14:20 Urine Appearance Sl cloudy (CLEAR) 08/06/17 14:20 Urine pH 7.0 (4.7-8.0) 08/06/17 14:20 Ur Specific [place] 1.010 (1.005-1.035) 08/06/17 14:20 Urine Protein Negative mg/dL (<30 mg/dL) 08/06/17 14:20 Urine Glucose (UA) Negative mg/dL (NEGATIVE) 08/06/17 14:20 Urine Ketones Negative mg/dL (NEGATIVE) 08/06/17 14:20 Urine Blood Trace-intact (NEGATIVE) H 08/06/17 14:20 Urine Nitrate Negative (NEGATIVE) 08/06/17 14:20 Urine Bilirubin Negative (NEGATIVE) 08/06/17 14:20 Urine Urobilinogen 0.2 E.U./dL (<1 E.U./dL) 08/06/17 14:20 Ur Leukocyte Esterase Small [place]aran/uL (NEGATIVE) H 08/06/17 14:20 Urine RBC 2 - 5 /hpf (0-2) 08/06/17 14:20 Urine WBC 5 - 10 /hpf (0-6) 08/06/17 14:20 Ur Epithelial Cells 3 - 4 /hpf (0-5) 08/06/17 14:20 Urine Bacteria Mod (NEG) 08/06/17 14:20 - Hospital Course Hospital Course: On Admission: Patient is a 86F with a PMH of HTN, Diastolic Dysfunction, Hypercholesterolemia , Raynauds, Hypothyroid, GERD, Barretts Esophagus and breast cancer who comes to the ED with a CC of Left leg weakness. She states the weakness began yesterday but has been worsening today. The weakness began to concern her so she came to the ED to have it evaluated. She states it is associated with the occasional throbbing or sharp pain but it is the weakness that is most concerning to her. She denies any numbness or tingling. Nothing makes it better or worse. She states that sometimes she feels tightness in the corresponding hip. The weakness has been constant and progressive since its onset. She also complains of some Left arm pain when she lifts the arm to 180 degrees. She states that she had one prior episode of Right upper thigh and hip pain that was exquisitely tender years ago but resolved with multiple epidurals and PT. Of Note she recently finished chemo for her breast CA and has repeat PET scan scheduled for August 13. All xrays done in the ED were normal. blood work normal. Hospital Course: MRI of the back revealed foraminal narrowing of L3- L4-L5 as well as scleortic lesion on S1 and bulging disc at L3-L4. Medical oncologist and surgical oncologist was made aware of this lesion. Patient was given 40 of solumedrol and symptoms began to resolve. Patient was feeling better but then had a fall and symptoms returned. She had 2/5 strength at this time. She was seen by neurosurgery and neuro who requested MRI of brain and CT abdomen and pelvis both of which were negative. She was started on decadron and evaluated for transfer to TCU. Her strength is 5/5 today. Discharge Exam - Head Exam Head Exam: ATRAUMATIC, NORMAL INSPECTION, NORMOCEPHALIC - Eye Exam Eye Exam: EOMI, Normal appearance, PERRL Pupil Exam: NORMAL ACCOMODATION, PERRL - Respiratory Exam Respiratory Exam: Clear to PA & Lateral, NORMAL BREATHING PATTERN, UNREMARKABLE - Cardiovascular Exam Cardiovascular Exam: REGULAR RHYTHM - GI/Abdominal Exam GI & Abdominal Exam: Normal Bowel Sounds, Soft. absent: Distended, Tenderness - Neurological Exam Neurological exam: Alert, CN II-XII Intact, Normal Gait, Oriented x3, Reflexes Normal - Psychiatric Exam Psychiatric exam: Normal Affect, Normal Mood - Skin Skin Exam: Dry, Intact, Normal Color, Warm Discharge Plan - Follow Up Plan Condition: STABLE Disposition: TRANSF TO SNF Instructions: Heart Failure, Adult, Heart Healthy Diet, Acute Pain, Adult, Preventing Falls, Why Vaccines Are Important for Everyone Referrals: Marvin Reno MD [Primary Care Provider] - <Angel Aburto - Last Filed: 08/12/17 15:15> Provider - Provider Date of Admission: 08/06/17 14:40 Attending physician: Angel Aburto MD Primary care physician: Marvin Reno MD Hospital Course - Lab Results Lab Results: Micro Results 08/06/17 23:21 Urine,Clean Catch Urine Culture - Final Enterococcus Faecalis Most Recent Lab Values WBC 5.1 10^3/ul (4.5-11.0) 08/10/17 08:30 RBC 3.32 10^6/uL (3.5-6.1) L 08/10/17 08:30 Hgb 10.4 g/dL (12.0-16.0) L 08/10/17 08:30 Hct 31.0 % (36.0-48.0) L 08/10/17 08:30 MCV 93.4 fl (80.0-105.0) 08/10/17 08:30 MCH 31.3 pg (25.0-35.0) 08/10/17 08:30 MCHC 33.5 g/dl (31.0-37.0) 08/10/17 08:30 RDW 14.3 % (11.5-14.5) 08/10/17 08:30 Plt Count 165 10^3/uL (120.0-450.0) 08/10/17 08:30 MPV 9.7 fl (7.0-11.0) 08/10/17 08:30 Gran % 64.9 % (50.0-68.0) 08/10/17 08:30 Lymph % (Auto) 23.2 % (22.0-35.0) 08/10/17 08:30 [place] % (Auto) 11.1 % (1.0-6.0) H 08/10/17 08:30 Eos % (Auto) 0.6 % (1.5-5.0) L 08/10/17 08:30 Baso % (Auto) 0.2 % (0.0-3.0) 08/10/17 08:30 Gran # 3.34 (1.4-6.5) 08/10/17 08:30 Lymph # (Auto) 1.2 (1.2-3.4) 08/10/17 08:30 [place] # (Auto) 0.6 (0.1-0.6) 08/10/17 08:30 Eos # (Auto) 0.0 (0.0-0.7) 08/10/17 08:30 Baso # (Auto) 0.01 K/mm3 (0.0-2.0) 08/10/17 08:30 PT 11.5 SECONDS (9.4-12.5) 08/06/17 12:08 INR 1.00 (0.93-1.08) 08/06/17 12:08 APTT 28.3 Seconds (25.1-36.5) 08/06/17 12:08 pO2 80 mm/Hg (30-55) H 08/06/17 12:08 VBG pH 7.41 (7.32-7.43) 08/06/17 12:08 VBG pCO2 49.0 (40-60) 08/06/17 12:08 VBG HCO3 31.1 mmol/l (21-28) H 08/06/17 12:08 VBG Total CO2 32.6 mmol.L (22-28) H 08/06/17 12:08 VBG O2 Sat (Calc) 97.2 % (40-65) H 08/06/17 12:08 VBG Base Excess 5.3 mmol/L (0.0-2.0) H 08/06/17 12:08 VBG Potassium 4.6 mmol/L (3.6-5.2) 08/06/17 12:08 Sodium 135.0 mmol/L (132-148) 08/06/17 12:08 Chloride 102.0 mmol/L (98-107) 08/06/17 12:08 Glucose 128 mg/dl (65-105) H 08/06/17 12:08 Lactate 1.2 mmol/L (0.7-2.1) 08/06/17 12:08 FiO2 21.0 % 08/06/17 12:08 Sodium 143 mmol/L (132-148) 08/10/17 08:30 Potassium 4.0 mmol/L (3.6-5.0) 08/10/17 08:30 Chloride 107 mmol/L (98-107) 08/10/17 08:30 Carbon Dioxide 24 mmol/L (21-33) 08/10/17 08:30 Anion Gap 16 (10-20) 08/10/17 08:30 BUN 11 mg/dL (7-21) 08/10/17 08:30 Creatinine 0.9 mg/dl (0.7-1.2) 08/10/17 08:30 Est GFR ( Amer) > 60 08/10/17 08:30 Est GFR (Non-Af Amer) 60 08/10/17 08:30 Random Glucose 112 mg/dL (70-110) H 08/10/17 08:30 Calcium 9.7 mg/dL (8.4-10.5) 08/10/17 08:30 Phosphorus 2.8 mg/dL (2.5-4.5) 08/10/17 08:30 Magnesium 1.7 mg/dL (1.7-2.2) 08/10/17 08:30 Total Bilirubin 0.3 mg/dL (0.2-1.3) 08/10/17 08:30 AST 25 U/L (14-36) 08/10/17 08:30 ALT 27 U/L (7-56) 08/10/17 08:30 Alkaline Phosphatase 58 U/L (38-126) 08/10/17 08:30 Troponin I < 0.01 ng/mL 08/06/17 12:08 Total Protein 6.9 g/dL (5.8-8.3) 08/10/17 08:30 Albumin 4.1 g/dL (3.0-4.8) 08/10/17 08:30 Globulin 2.8 gm/dL 08/10/17 08:30 Albumin/Globulin Ratio 1.5 (1.1-1.8) 08/10/17 08:30 Venous Blood Potassium 4.6 mmol/L (3.6-5.2) 08/06/17 12:08 Urine Color Yellow (YELLOW) 08/06/17 14:20 Urine Appearance Sl cloudy (CLEAR) 08/06/17 14:20 Urine pH 7.0 (4.7-8.0) 08/06/17 14:20 Ur Specific [place] 1.010 (1.005-1.035) 08/06/17 14:20 Urine Protein Negative mg/dL (<30 mg/dL) 08/06/17 14:20 Urine Glucose (UA) Negative mg/dL (NEGATIVE) 08/06/17 14:20 Urine Ketones Negative mg/dL (NEGATIVE) 08/06/17 14:20 Urine Blood Trace-intact (NEGATIVE) H 08/06/17 14:20 Urine Nitrate Negative (NEGATIVE) 08/06/17 14:20 Urine Bilirubin Negative (NEGATIVE) 08/06/17 14:20 Urine Urobilinogen 0.2 E.U./dL (<1 E.U./dL) 08/06/17 14:20 Ur Leukocyte Esterase Small [place]/uL (NEGATIVE) H 08/06/17 14:20 Urine RBC 2 - 5 /hpf (0-2) 08/06/17 14:20 Urine WBC 5 - 10 /hpf (0-6) 08/06/17 14:20 Ur Epithelial Cells 3 - 4 /hpf (0-5) 08/06/17 14:20 Urine Bacteria Mod (NEG) 08/06/17 14:20 Attending/Attestation - Attestation I have personally seen and examined this patient.: Yes I have fully participated in the care of the patient.: Yes I have reviewed all pertinent clinical information, including history, physical exam and plan: Yes Notes (Text): 08/12/17 15:10 Medical record note made by the resident after discussion with my direction and input after the patient was personally seen and examined by me. I have reviewed the chart and agree that the record accurately reflects by personal performance of the history, physical exam, data review, and medical decision-making, in the course for the patient. I have also personally directed the plan of care. 86 year old female with history of HTN, Diastolic Dysfunction, Hypercholesterolemia, Raynauds, Hypothyroid, GERD, Rajput's Esophagus and breast cancer who came for evaluation of left lower extremity pain and weakness. MRI of lumbar spine shows multiple foraminal narrowing as well as herniated disc at L3-L4 and sclerotic lesion in body of S1. We have already discussed MRI findings with her private doctors.MRI of Brain was negative for acute stroke, showed small Meningioma.CT scan of abdomen and Pelvis is unremarkable.Patient left leg weakness has improved to 4/5.She will be discharged to TCU for rehabilitation. Patient is scheduled for PET scan as an outpatient next week. Management plan was discussed in detail with patient and daughter over the phone. Education was provided.
[2017-08-11] MEDS ORDERED: Pantoprazole 40 mg EC Tab PO SCH (16:00)
[2017-08-11 16:30] VITALS: BP 140/72; PULSE 79; TEMP 97.8; O2SAT 100
== END 2017-08-11 19:07 | DRG 552 ==
LOC: ED 11:16 → ERH 14:40 → 5RSO 16:34
PROVIDERS: ADMIT Internal Medicine; ATTEND Internal Medicine
DX: M51.26 Other intervertebral disc displacement, lumbar region (principal); M79.605 Pain in left leg; R53.1 Weakness; K22.70 Barrett's esophagus without dysplasia; K21.9 Gastro-esophageal reflux disease without esophagitis; I73.00 Raynaud's syndrome without gangrene; I10 Essential (primary) hypertension; E78.00 Pure hypercholesterolemia, unspecified; E03.9 Hypothyroidism, unspecified; E55.9 Vitamin D deficiency, unspecified; G47.00 Insomnia, unspecified; J44.9 Chronic obstructive pulmonary disease, unspecified; Z85.3 Personal history of malignant neoplasm of breast; Z90.11 Acquired absence of right breast and nipple; Z87.891 Personal history of nicotine dependence

== ENCOUNTER 2017-08-11 19:12 | Inpatient (IN) | payer OTHER ==
[2017-08-11] MEDS ORDERED: Morphine 2 mg/ml ISec IVP PRN (20:24)
[2017-08-11] MEDS ORDERED: Dexamethasone 4 mg/1 ml IVP SCH (20:30)
[2017-08-11] MEDS: Amoxicillin-Clav 875-125 mg Tab PO SCH (21:53)
[2017-08-11] MEDS: Cholecalciferol 1,000 INTLU TAB PO SCH (21:55)
[2017-08-11] MEDS ORDERED: Amoxicillin-Clav 875-125 mg Tab PO SCH (22:00)
[2017-08-11] MEDS ORDERED: Metoprolol Succinate 50 mg XL Tab PO SCH (22:00)
[2017-08-11] MEDS: Metoprolol Succinate 25 mg XL Tab PO SCH (22:04)
[2017-08-11] MEDS: Dexamethasone 4 mg/1 ml IVP SCH (23:55)
[2017-08-12] MEDS: Enoxaparin 40 mg Syringe SC SCH (06:16)
[2017-08-12] MEDS: Pantoprazole 40 mg EC Tab PO SCH (06:16)
[2017-08-12] MEDS: Levothyroxine 75 MCG TAB PO SCH (06:16)
[2017-08-12] MEDS: Dexamethasone 4 mg/1 ml IVP SCH (06:16)
--- NOTE | 2017-08-12 08:33 | CP.PCM.CON ---
History of Present Illness - History of Present Illness History of Present Illness: Neuro Consult note for Dr. Decker Reason for consult: L leg weakness 86yo female PMHx HTN, diastolic dysfunction, HLD, Raynaud's, hypothyroidism, GERD, Rajput's esophagus, and breast ca presented to [facility] ED on 08/06 with LLE weakness. Patient was admitted to the floors where she had a Code Star on 08/09 after she spilled some soda on the ground and upon bending down to pick it up, she was unable to. Patient did not hit her head or have any LOC or a syncopal episode. During her hospital course patient had an MRI that showed multiple foraminal narrowings as well as herniated disc at L3-L4 and sclerotic lesion in body of S1. Neurosurgery was consulted who then requested neurology consult for unilateral leg weakness. Patient was seen and examined this morning with her brother at bedside. She reported no acute events and denied any bladder/bowel incontinence. Neuro reconsulted while patient is receiving physical therapy in TCU. This AM she denied acute complaints of headache, dizziness, chest pain, palpitations, SOB, cough, abd pain, nausea, vomiting, swelling in her legs b/l. Of Note she recently finished chemo for her breast CA and has repeat PET scan scheduled for August 13. PMHx: HTN, Diastolic Dysfunction, Hypercholesterolemia, Raynauds, Hypothyroid, GERD, Barretts Esophagus and breast cancer PSurgHx: Appendectomy 1942, Left Cataract 1998, Right Cataract 1999, Lumbar Laminectomy 2002, Cervical Laminectomy 2004, Bunionectomy w/ Hammertoe 2010, Cardiac Cath x3, Epidural x3, D & C, Endoscopy, Colonoscopy FamHx: Mother had CHF and in her 70s, Father had COPD and in his 80s. SocHx: Denies smoking, drinking or drug use All: NKDA Meds: pls see chart Review of Systems - Review of Systems All systems: reviewed and no additional remarkable complaints except Review of Systems: as per HPI Past Patient History - Infectious Disease Hx of Infectious Diseases: None - Tetanus Immunizations Tetanus Immunization: Unknown - Past Social History Smoking Status: Never Smoked - CARDIAC Hx Cardiac Disorders: Yes Hx Hypercholesterolemia: Yes Hx Hypertension: Yes - PULMONARY Hx Chronic Obstructive Pulmonary Disease (COPD): Yes - NEUROLOGICAL Hx Neurological Disorder: No - HEENT Hx HEENT Problems: Yes Hx Cataracts: Yes - RENAL Hx Chronic Kidney Disease: No - ENDOCRINE/METABOLIC Hx Hypothyroidism: Yes - HEMATOLOGICAL/ONCOLOGICAL Hx Blood Disorders: No - INTEGUMENTARY Hx Dermatological Problems: No - MUSCULOSKELETAL/RHEUMATOLOGICAL Hx Falls: Yes (recent fall) - GASTROINTESTINAL Hx Gastrointestinal Disorders: (gerd/barretts esophagus) - GENITOURINARY/GYNECOLOGICAL Hx Genitourinary Disorders: No Hx Reproductive Disorders: Yes (r breast ca w/chemo dx 03/2016) - PSYCHIATRIC Hx Psychophysiologic Disorder: No Hx Emotional Abuse: No Hx Physical Abuse: No - SURGICAL HISTORY Hx Appendectomy: Yes Hx Cholecystectomy: Yes Other/Comment: rt mastectomy rt breast ca - ANESTHESIA Hx Anesthesia Reactions: No Hx Malignant Hyperthermia: No Meds Allergies/Adverse Reactions: Allergies Allergy/AdvReac Type Severity Reaction Status Date / Time No Known Allergies Allergy Verified 08/11/17 20:01 - Medications Medications: Current Medications Amitriptyline HCl (Elavil) 37.5 mg PO HS DILIP PRN Reason: Protocol Last Admin: 08/11/17 21:54 Dose: 37.5 mg Amlodipine Besylate (Norvasc) 5 mg PO DAILY DILIP PRN Reason: Protocol Amoxicillin/Clavulanate Potassium (Augmentin 875 Mg-125 Mg Tab) 1 tab PO Q12 DILIP PRN Reason: Protocol Last Admin: 08/11/17 21:53 Dose: 1 tab Aspirin (Ecotrin) 81 mg PO 0800 DILIP PRN Reason: Protocol Last Admin: 08/12/17 08:32 Dose: 81 mg Atorvastatin Calcium (Lipitor) 20 mg PO HS DILIP PRN Reason: Protocol Last Admin: 08/11/17 21:54 Dose: 20 mg Cholecalciferol (Vitamin D) 2,000 intlu PO HS DILIP PRN Reason: Protocol Last Admin: 08/11/17 21:55 Dose: 2,000 intlu Diphenhydramine HCl (Benadryl) 25 mg PO HS DILIP PRN Reason: Protocol Last Admin: 08/11/17 21:53 Dose: 25 mg Enoxaparin Sodium (Lovenox) 40 mg SC 0600 DILIP PRN Reason: Protocol Last Admin: 08/12/17 06:16 Dose: Not Given Gabapentin (Neurontin) 300 mg PO TID PRN; Protocol PRN Reason: moderate pain Hydrochlorothiazide (Hydrodiuril) 25 mg PO DAILY DILIP PRN Reason: Protocol Levothyroxine Sodium (Synthroid) 75 mcg PO 0600 DILIP PRN Reason: Protocol Last Admin: 08/12/17 06:16 Dose: 75 mcg Losartan Potassium (Cozaar) 100 mg PO DAILY [facility] PRN Reason: Protocol Metoprolol Succinate (Toprol Xl) 75 mg PO HS DILIP PRN Reason: Protocol Last Admin: 08/11/17 22:04 Dose: 75 mg Morphine Sulfate (Morphine) 2 mg IVP Q4H PRN; Protocol PRN Reason: severe pain Pantoprazole Sodium (Protonix Ec Tab) 40 mg PO 0600 DILIP PRN Reason: Protocol Last Admin: 08/12/17 06:16 Dose: 40 mg Prednisone (Prednisone Tab) 40 mg PO DAILY [facility] Stop: 08/14/17 10:01 Physical Exam - Constitutional Appears: Well - Head Exam Head Exam: ATRAUMATIC, NORMAL INSPECTION, NORMOCEPHALIC - Eye Exam Eye Exam: EOMI, Normal appearance. absent: Conjunctival injection, Scleral icterus - ENT Exam ENT Exam: Mucous Membranes Moist - Neck Exam Neck exam: Positive for: Normal Inspection - Respiratory Exam Respiratory Exam: NORMAL BREATHING PATTERN. absent: Accessory Muscle Use, Respiratory Distress - Cardiovascular Exam Cardiovascular Exam: REGULAR RHYTHM, +S1, +S2 - GI/Abdominal Exam GI & Abdominal Exam: Soft. absent: Tenderness - Rectal Exam Rectal Exam: Deferred - Neurological Exam Neurological exam: Alert, CN II-XII Intact, Oriented x3 Additional comments: + straight leg raise 10 degrees LLE sensation intact b/l no pronator drift [id number] intact b/l no double vision b/l - Psychiatric Exam Psychiatric exam: Normal Affect, Normal Mood - Skin Skin Exam: Dry, Intact, Normal Color, Warm Results - Vital Signs Recent Vital Signs: Last Vital Signs Temp 98.2 F 08/11/17 20:50 Pulse 83 08/11/17 22:04 Resp 20 08/11/17 20:50 BP 144/77 08/11/17 22:04 Pulse Ox Assessment & Plan - Assessment and Plan (Free Text) Assessment: 86yo female PMHx HTN, diastolic dysfunction, HLD, Raynaud's, hypothyroidism, GERD, Rajput's esophagus, and breast ca presented to [facility] ED on 08/06 with LLE weakness. Neurology reconsulted while patient is in TCU for rehab Plan: -Brain MRI: small meningioma over the L frontal convexity -continue pain control -recommend Epidural outpatient -continue management as per primary Discussed with Dr. Jeronimo Parsons PGY2
[2017-08-12] MEDS: Amoxicillin-Clav 875-125 mg Tab PO SCH ×2 (10:13→21:11)
--- NOTE | 2017-08-12 13:05 | CP.PCM.HP ---
<Kamran Noonan - Last Filed: 08/12/17 13:01> History of Present Illness - History of Present Illness History of Present Illness: On Admission: Patient is a 86F with a PMH of HTN, Diastolic Dysfunction, Hypercholesterolemia , Raynauds, Hypothyroid, GERD, Barretts Esophagus and breast cancer who comes to the ED with a CC of Left leg weakness. She states the weakness began yesterday but has been worsening today. The weakness began to concern her so she came to the ED to have it evaluated. She states it is associated with the occasional throbbing or sharp pain but it is the weakness that is most concerning to her. She denies any numbness or tingling. Nothing makes it better or worse. She states that sometimes she feels tightness in the corresponding hip. The weakness has been constant and progressive since its onset. She also complains of some Left arm pain when she lifts the arm to 180 degrees. She states that she had one prior episode of Right upper thigh and hip pain that was exquisitely tender years ago but resolved with multiple epidurals and PT. Of Note she recently finished chemo for her breast CA and has repeat PET scan scheduled for August 13. All xrays done in the ED were normal. blood work normal. Hospital Course: MRI of the back revealed foraminal narrowing of L3- L4-L5 as well as scleortic lesion on S1 and bulging disc at L3-L4. Medical oncologist and surgical oncologist was made aware of this lesion. Patient was given 40 of solumedrol and symptoms began to resolve. Patient was feeling better but then had a fall and symptoms returned. She had 2/5 strength at this time. She was seen by neurosurgery and neuro who requested MRI of brain and CT abdomen and pelvis both of which were negative. She was started on decadron and evaluated for transfer to TCU. Her strength is 5/5 today. PMH: HTN, Diastolic Dysfunction, Hypercholesterolemia, Raynauds, Hypothyroid, GERD, Barretts Esophagus and breast cancer PSH: Appendectomy 1942, Left Cataract 1998, Right Cataract 1999, Lumbar Laminectomy 2002, Cervical Laminectomy 2004, Bunionectomy w/ Hammertoe 2010, Cardiac Cath x3, Epidural x3, D & C, Endoscopy, Colonoscopy FH: Mother had CHF and in her 70s, Father had COPD and in his 80s. SH: Denies smoking, drinking or drug use All: NKA Present on Admission - Present on Admission Any Indicators Present on Admission: No Review of Systems - Review of Systems Review of Systems: per HPI Past Patient History - Infectious Disease Hx of Infectious Diseases: None - Tetanus Immunizations Tetanus Immunization: Unknown - Past Social History Smoking Status: Never Smoked - CARDIAC Hx Cardiac Disorders: Yes Hx Hypercholesterolemia: Yes Hx Hypertension: Yes - PULMONARY Hx Chronic Obstructive Pulmonary Disease (COPD): Yes - NEUROLOGICAL Hx Neurological Disorder: No - HEENT Hx HEENT Problems: Yes Hx Cataracts: Yes - RENAL Hx Chronic Kidney Disease: No - ENDOCRINE/METABOLIC Hx Diabetes Mellitus Type 1: Yes Hx Hypothyroidism: Yes - HEMATOLOGICAL/ONCOLOGICAL Hx Blood Disorders: No - INTEGUMENTARY Hx Dermatological Problems: No - MUSCULOSKELETAL/RHEUMATOLOGICAL Hx Arthritis: Yes - GASTROINTESTINAL Hx Gastrointestinal Disorders: (gerd/barretts esophagus) - GENITOURINARY/GYNECOLOGICAL Hx Genitourinary Disorders: No Hx Reproductive Disorders: Yes (r breast ca w/chemo dx 03/2016) - PSYCHIATRIC Hx Psychophysiologic Disorder: No Hx Emotional Abuse: No Hx Physical Abuse: No - SURGICAL HISTORY Hx Appendectomy: Yes Hx Cholecystectomy: Yes Other/Comment: rt mastectomy rt breast ca - ANESTHESIA Hx Anesthesia Reactions: No Hx Malignant Hyperthermia: No Meds Allergies/Adverse Reactions: Allergies Allergy/AdvReac Type Severity Reaction Status Date / Time No Known Allergies Allergy Verified 08/11/17 20:01 Physical Exam - Constitutional Appears: Well - Head Exam Head Exam: ATRAUMATIC, NORMAL INSPECTION, NORMOCEPHALIC - Eye Exam Eye Exam: EOMI, Normal appearance, PERRL Pupil Exam: NORMAL ACCOMODATION, PERRL - ENT Exam ENT Exam: Mucous Membranes Moist, Normal Exam - Neck Exam Neck exam: Positive for: Normal Inspection - Respiratory Exam Respiratory Exam: Clear to Auscultation Bilateral, NORMAL BREATHING PATTERN - Cardiovascular Exam Cardiovascular Exam: REGULAR RHYTHM - GI/Abdominal Exam GI & Abdominal Exam: Normal Bowel Sounds, Soft. absent: Tenderness - Extremities Exam Extremities exam: Positive for: normal inspection - Back Exam Back exam: NORMAL INSPECTION - Neurological Exam Neurological exam: Alert, CN II-XII Intact, Normal Gait, Oriented x3, Reflexes Normal - Psychiatric Exam Psychiatric exam: Normal Affect, Normal Mood - Skin Skin Exam: Dry, Intact, Normal Color, Warm Results - Vital Signs Recent Vital Signs: Last Vital Signs Temp 98.2 F 08/11/17 20:50 Pulse 66 08/12/17 11:48 Resp 20 08/11/17 20:50 BP 115/65 08/12/17 10:14 Pulse Ox 100 08/12/17 11:48 Assessment & Plan - Assessment and Plan (Free Text) Assessment: (1) Left leg weakness Assessment and Plan: All Xrays negative MRI shows multiple foraminal narrowing as well as herniated disc at L3-L4 and sclerotic lesion in body of S1 Morphine and gabapentin Prednisone taper Neurosurgery ([facility]) Neurology ([facility]) MRI brain unremarkable CT apd/pelvis unremarkable PT/OT Status: Acute Priority: Medium (2) Hypothyroidism Assessment and Plan: Synthroid 75 PO QAM Status: Acute (3) HTN (hypertension) Assessment and Plan: Norvasc 5 PO QD HCTZ 25 PO QD Metoprolol Succ 75 PO HS Valsartan 160 PO QD Status: Chronic Priority: High (4) 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 No need for prophylaxis for DVT No GI PPX indicated at this time Status: Acute Priority: Medium <Angel Aburto - Last Filed: 08/13/17 14:27> Results - Vital Signs Recent Vital Signs: Last Vital Signs Temp 98.1 F 08/13/17 11:11 Pulse 59 L 08/13/17 11:11 Resp 18 08/13/17 11:11 BP 125/64 08/13/17 11:11 Pulse Ox 100 08/13/17 06:00 Attending/Attestation - Attestation I have personally seen and examined this patient.: Yes I have fully participated in the care of the patient.: Yes I have reviewed all pertinent clinical information: Yes Notes (Text): 08/13/17 14:25 Medical record note made by the resident after discussion with my direction and input after the patient was personally seen and examined by me. I have reviewed the chart and agree that the record accurately reflects by personal performance of the history, physical exam, data review, and medical decision-making, in the course for the patient. I have also personally directed the plan of care. 86 year old female with history of HTN, Diastolic Dysfunction, Hypercholesterolemia, Raynauds, Hypothyroid, GERD, Rajput's Esophagus and breast cancer who was initially admitted to [facility] inpatient with left lower extremity pain and weakness. MRI of lumbar spine shows multiple foraminal narrowing as well as herniated disc at L3-L4 and sclerotic lesion in body of S1. We have already discussed MRI findings with her private doctors.MRI of Brain was negative for acute stroke, showed small Meningioma.CT scan of abdomen and Pelvis is unremarkable.Patient left leg weakness has improved to 4/5.She will be admitted to TCU for rehabilitation.Continue tapering dose of prednsione. Management plan was discussed in detail with patient and daughter over the phone. Education was provided.
[2017-08-12] MEDS: Metoprolol Succinate 25 mg XL Tab PO SCH (21:12)
[2017-08-12] MEDS: Cholecalciferol 1,000 INTLU TAB PO SCH (21:16)
[2017-08-13] MEDS: Pantoprazole 40 mg EC Tab PO SCH (05:56)
[2017-08-13] MEDS: Enoxaparin 40 mg Syringe SC SCH (05:56)
[2017-08-13] MEDS: Levothyroxine 75 MCG TAB PO SCH (05:57)
--- NOTE | 2017-08-13 08:41 | CP.PCM.PN ---
Subjective - Date & Time of Evaluation Date of Evaluation: 08/13/17 Time of Evaluation: 09:00 - Subjective Subjective: Neuro progress note for Dr. Decker Patient seen and examined sitting up in chair. Nursing reported no acute events overnight. Patient reported she has been ambulating around the floors with the walker and working with physical therapy daily and going to the gym. She reports she still feels like her LLE is slightly weaker than the right but it has improved. Patient also reports the pain is still persistent around her left groin everytime she raises or extends her LLE. She has a neurosurgeon that she follows up with outpatient and has an appointment in August. On ROS patient denied acute complaints of headache, dizziness, chest pain, palpitations, SOB, cough, abd pain, nausea, vomiting, bowel/bladder complaints, swelling in her legs b/l. Objective - Vital Signs/Intake and Output Vital Signs (last 24 hours): Temp Pulse Resp BP Pulse Ox 98.1 F 59 L 18 125/69 100 08/13/17 06:00 08/13/17 06:00 08/13/17 06:00 08/13/17 06:00 08/13/17 06:00 - Medications Medications: Current Medications Amitriptyline HCl (Elavil) 37.5 mg PO HS [facility] PRN Reason: Protocol Last Admin: 08/12/17 21:15 Dose: 37.5 mg Amlodipine Besylate (Norvasc) 5 mg PO DAILY [facility] PRN Reason: Protocol Last Admin: 08/12/17 10:14 Dose: 5 mg Amoxicillin/Clavulanate Potassium (Augmentin 875 Mg-125 Mg Tab) 1 tab PO Q12 [facility] PRN Reason: Protocol Last Admin: 08/12/17 21:11 Dose: 1 tab Aspirin (Ecotrin) 81 mg PO 0800 [facility] PRN Reason: Protocol Last Admin: 08/13/17 08:01 Dose: 81 mg Atorvastatin Calcium (Lipitor) 20 mg PO HS [facility] PRN Reason: Protocol Last Admin: 08/12/17 21:16 Dose: 20 mg Cholecalciferol (Vitamin D) 2,000 intlu PO HS [facility] PRN Reason: Protocol Last Admin: 08/12/17 21:16 Dose: 2,000 intlu Diphenhydramine HCl (Benadryl) 25 mg PO HS [facility] PRN Reason: Protocol Last Admin: 08/12/17 21:12 Dose: 25 mg Enoxaparin Sodium (Lovenox) 40 mg SC 0600 [facility] PRN Reason: Protocol Last Admin: 08/13/17 05:56 Dose: Not Given Gabapentin (Neurontin) 300 mg PO TID PRN; Protocol PRN Reason: moderate pain Hydrochlorothiazide (Hydrodiuril) 25 mg PO DAILY [facility] PRN Reason: Protocol Last Admin: 08/12/17 10:14 Dose: 25 mg Levothyroxine Sodium (Synthroid) 75 mcg PO 0600 [facility] PRN Reason: Protocol Last Admin: 08/13/17 05:57 Dose: 75 mcg Losartan Potassium (Cozaar) 100 mg PO DAILY [facility] PRN Reason: Protocol Last Admin: 08/12/17 10:14 Dose: 100 mg Metoprolol Succinate (Toprol Xl) 75 mg PO HS [facility] PRN Reason: Protocol Last Admin: 08/12/17 21:12 Dose: 75 mg Morphine Sulfate (Morphine) 2 mg IVP Q4H PRN; Protocol PRN Reason: severe pain Pantoprazole Sodium (Protonix Ec Tab) 40 mg PO 0600 [facility] PRN Reason: Protocol Last Admin: 08/13/17 05:56 Dose: 40 mg Prednisone (Prednisone Tab) 40 mg PO DAILY [facility] Stop: 08/14/17 10:01 Last Admin: 08/12/17 10:14 Dose: 40 mg - Constitutional Appears: Non-toxic, No Acute Distress - Head Exam Head Exam: ATRAUMATIC, NORMAL INSPECTION, NORMOCEPHALIC - Eye Exam Eye Exam: EOMI, Normal appearance, PERRL. absent: Conjunctival injection, Scleral icterus Pupil Exam: NORMAL ACCOMODATION - ENT Exam ENT Exam: Mucous Membranes Moist - Neck Exam Neck Exam: Full ROM - Respiratory Exam Respiratory Exam: NORMAL BREATHING PATTERN. absent: Accessory Muscle Use, Respiratory Distress - Cardiovascular Exam Cardiovascular Exam: +S1, +S2 - GI/Abdominal Exam GI & Abdominal Exam: Soft. absent: Tenderness - Rectal Exam Rectal Exam: Deferred - Neurological Exam Neurological Exam: Alert, Awake, CN II-XII Intact, Oriented x3 Neuro motor strength exam: Left Upper Extremity: 5, Right Upper Extremity: 5, Left Lower Extremity: 4, Right Lower Extremity: 5 - Psychiatric Exam Psychiatric exam: Normal Affect, Normal Mood - Skin Skin Exam: Dry, Intact, Normal Color, Warm Assessment and Plan - Assessment and Plan (Free Text) Assessment: 86yo female PMHx HTN, diastolic dysfunction, HLD, Raynaud's, hypothyroidism, GERD, Rajput's esophagus, and breast ca presented [place] [facility] [place] on 08[place]06 with LLE weakness. Neurology reconsulted while patient is in TCU for rehab Plan: -Brain MRI: small meningioma over the L frontal convexity -continue pain control -recommend Epidural outpatient -continue PT/OT and ambulating with walker -continue management as per primary Discussed with Dr. Jeronimo Parsons PGY2
[2017-08-13] MEDS: Amoxicillin-Clav 875-125 mg Tab PO SCH ×2 (09:30→22:01)
[2017-08-13] MEDS: Cholecalciferol 1,000 INTLU TAB PO SCH (22:02)
[2017-08-13] MEDS: Metoprolol Succinate 25 mg XL Tab PO SCH (22:02)
[2017-08-14] MEDS: Pantoprazole 40 mg EC Tab PO SCH (05:50)
[2017-08-14] MEDS: Levothyroxine 75 MCG TAB PO SCH (05:50)
[2017-08-14] MEDS: Enoxaparin 40 mg Syringe SC SCH (05:53)
[2017-08-14 07:12] LABS: GRAN # 4.73 (1.4-6.5); GRAN % 64.9 % (50.0-68.0); HEMOGLOBIN 10.9 g/dL (12.0-16.0); LYMPH # 1.3 (1.2-3.4); LYMPH % 17.2 % (22.0-35.0); MEAN CORPUSCULAR HEMOGLOBIN 30.8 pg (25.0-35.0); MEAN CORPUSCULAR HGB CONC 34.6 g/dl (31.0-37.0); MEAN PLATELET VOLUME 9.4 fl (7.0-11.0); MONO # 1.3 (0.1-0.6); MONO % 17.9 % (1.0-6.0); RBC 3.54 10^6/uL (3.5-6.1); RED CELL DISTRIBUTION WIDTH 13.5 % (11.5-14.5); WHITE BLOOD COUNT 7.3 10^3/ul (4.5-11.0)
[2017-08-14 07:36] LABS: ALB/GLOB RATIO 1.5 (1.1-1.8); ALBUMIN 3.9 g/dL (3.0-4.8); ALT/SGPT 26 U/L (7-56); AST/SGOT 27 U/L (14-36); BLOOD UREA NITROGEN 28 mg/dL (7-21); CALCIUM 9.6 mg/dL (8.4-10.5); GFR AFRICAN-AMERICAN > 60; GFR NON-AFRICAN AMERICAN 60
--- NOTE | 2017-08-14 12:42 | CP.PCM.PN ---
<Kamran Noonan - Last Filed: 08/14/17 12:40> Subjective - Date & Time of Evaluation Date of Evaluation: 08/14/17 Time of Evaluation: 12:40 - Subjective Subjective: Patient is seen and examined at bedside. No new complaints at this time. Patient is tolerating PT without a problem. Objective - Vital Signs/Intake and Output Vital Signs (last 24 hours): Temp Pulse Resp BP Pulse Ox 98 F 88 18 121/66 96 08/13/17 16:00 08/13/17 22:02 08/13/17 16:00 08/14/17 09:45 08/13/17 16:00 - Medications Medications: Current Medications Amitriptyline HCl (Elavil) 37.5 mg PO HS [facility] PRN Reason: Protocol Last Admin: 08/13/17 22:02 Dose: 37.5 mg Amlodipine Besylate (Norvasc) 5 mg PO DAILY [facility] PRN Reason: Protocol Last Admin: 08/14/17 09:45 Dose: 5 mg Amoxicillin/Clavulanate Potassium (Augmentin 875 Mg-125 Mg Tab) 1 tab PO Q12 [facility] PRN Reason: Protocol Last Admin: 08/13/17 22:01 Dose: 1 tab Aspirin (Ecotrin) 81 mg PO 0800 [facility] PRN Reason: Protocol Last Admin: 08/14/17 09:44 Dose: 81 mg Atorvastatin Calcium (Lipitor) 20 mg PO HS [facility] PRN Reason: Protocol Last Admin: 08/13/17 22:02 Dose: 20 mg Cholecalciferol (Vitamin D) 2,000 intlu PO HS [facility] PRN Reason: Protocol Last Admin: 08/13/17 22:02 Dose: 2,000 intlu Diphenhydramine HCl (Benadryl) 25 mg PO HS [facility] PRN Reason: Protocol Last Admin: 08/13/17 22:01 Dose: 25 mg Enoxaparin Sodium (Lovenox) 40 mg SC 0600 [facility] PRN Reason: Protocol Last Admin: 08/14/17 05:53 Dose: Not Given Gabapentin (Neurontin) 300 mg PO TID PRN; Protocol PRN Reason: moderate pain Hydrochlorothiazide (Hydrodiuril) 25 mg PO DAILY [facility] PRN Reason: Protocol Last Admin: 08/14/17 09:44 Dose: 25 mg Levothyroxine Sodium (Synthroid) 75 mcg PO 0600 [facility] PRN Reason: Protocol Last Admin: 08/14/17 05:50 Dose: 75 mcg Losartan Potassium (Cozaar) 100 mg PO DAILY [facility] PRN Reason: Protocol Last Admin: 08/14/17 09:44 Dose: 100 mg Metoprolol Succinate (Toprol Xl) 75 mg PO HS [facility] PRN Reason: Protocol Last Admin: 08/13/17 22:02 Dose: 75 mg Morphine Sulfate (Morphine) 2 mg IVP Q4H PRN; Protocol PRN Reason: severe pain Pantoprazole Sodium (Protonix Ec Tab) 40 mg PO 0600 [facility] PRN Reason: Protocol Last Admin: 08/14/17 05:50 Dose: 40 mg Prednisone (Prednisone Tab) 30 mg PO DAILY [facility] Stop: 08/16/17 10:01 Last Admin: 08/14/17 09:45 Dose: 30 mg - Labs Labs: 08/14/17 06:50 08/14/17 06:50 - Constitutional Appears: Well - Head Exam Head Exam: ATRAUMATIC, NORMAL INSPECTION, NORMOCEPHALIC - Eye Exam Eye Exam: EOMI, Normal appearance, PERRL Pupil Exam: NORMAL ACCOMODATION, PERRL - ENT Exam ENT Exam: Mucous Membranes Moist, Normal Exam - Neck Exam Neck Exam: Full ROM, Normal Inspection. absent: Lymphadenopathy - Respiratory Exam Respiratory Exam: Clear to Ausculation Bilateral, NORMAL BREATHING PATTERN - Cardiovascular Exam Cardiovascular Exam: REGULAR RHYTHM, +S1, +S2. absent: Murmur - GI/Abdominal Exam GI & Abdominal Exam: Soft, Normal Bowel Sounds. absent: Tenderness - Extremities Exam Extremities Exam: Full ROM, Normal Capillary Refill, Normal Inspection. absent : Joint Swelling, Pedal Edema - Back Exam Back Exam: NORMAL INSPECTION - Neurological Exam Neurological Exam: Alert, Awake, CN II-XII Intact, Normal Gait, Oriented x3 - Psychiatric Exam Psychiatric exam: Normal Affect, Normal Mood - Skin Skin Exam: Dry, Intact, Normal Color, Warm Assessment and Plan - Assessment and Plan (Free Text) Assessment: (1) Left leg weakness Assessment and Plan: All Xrays negative MRI shows multiple foraminal narrowing as well as herniated disc at L3-L4 and sclerotic lesion in body of S1 Morphine and gabapentin Prednisone taper Neurosurgery ([facility]) Neurology ([facility]) MRI brain unremarkable CT apd/pelvis unremarkable PT/OT Status: Acute Priority: Medium (2) Hypothyroidism Assessment and Plan: Synthroid 75 PO QAM Status: Acute (3) HTN (hypertension) Assessment and Plan: Norvasc 5 PO QD HCTZ 25 PO QD Metoprolol Succ 75 PO HS Valsartan 160 PO QD Status: Chronic Priority: High (4) 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 No need for prophylaxis for DVT No GI PPX indicated at this time Status: Acute Priority: Medium <Angel Aburto - Last Filed: 08/15/17 15:57> Objective - Vital Signs/Intake and Output Vital Signs (last 24 hours): Temp Pulse Resp BP Pulse Ox 97.9 F 58 L 18 125/65 100 08/14/17 16:41 08/14/17 16:41 08/14/17 16:41 08/15/17 09:36 08/14/17 16:41 - Medications Medications: Current Medications Amitriptyline HCl (Elavil) 37.5 mg PO HS [facility] PRN Reason: Protocol Last Admin: 08/14/17 21:22 Dose: 37.5 mg Amlodipine Besylate (Norvasc) 5 mg PO DAILY [facility] PRN Reason: Protocol Last Admin: 08/15/17 09:36 Dose: 5 mg Aspirin (Ecotrin) 81 mg PO 0800 [facility] PRN Reason: Protocol Last Admin: 08/15/17 08:36 Dose: 81 mg Atorvastatin Calcium (Lipitor) 20 mg PO HS [facility] PRN Reason: Protocol Last Admin: 08/14/17 21:22 Dose: 20 mg Cholecalciferol (Vitamin D) 2,000 intlu PO HS [facility] PRN Reason: Protocol Last Admin: 08/14/17 21:22 Dose: 2,000 intlu Diphenhydramine HCl (Benadryl) 25 mg PO HS [facility] PRN Reason: Protocol Last Admin: 08/14/17 21:21 Dose: 25 mg Enoxaparin Sodium (Lovenox) 40 mg SC 0600 [facility] PRN Reason: Protocol Last Admin: 08/15/17 05:21 Dose: Not Given Gabapentin (Neurontin) 300 mg PO TID PRN; Protocol PRN Reason: moderate pain Hydrochlorothiazide (Hydrodiuril) 25 mg PO DAILY [facility] PRN Reason: Protocol Last Admin: 08/15/17 09:35 Dose: 25 mg Levothyroxine Sodium (Synthroid) 75 mcg PO 0600 [facility] PRN Reason: Protocol Last Admin: 08/15/17 05:22 Dose: 75 mcg Losartan Potassium (Cozaar) 100 mg PO DAILY [facility] PRN Reason: Protocol Last Admin: 08/15/17 09:35 Dose: 100 mg Metoprolol Succinate (Toprol Xl) 75 mg PO HS [facility] PRN Reason: Protocol Last Admin: 08/14/17 21:22 Dose: 75 mg Morphine Sulfate (Morphine) 2 mg IVP Q4H PRN; Protocol PRN Reason: severe pain Pantoprazole Sodium (Protonix Ec Tab) 40 mg PO 0600 [facility] PRN Reason: Protocol Last Admin: 08/15/17 05:22 Dose: 40 mg Prednisone (Prednisone Tab) 30 mg PO DAILY [facility] Stop: 08/16/17 10:01 Last Admin: 08/15/17 09:36 Dose: 30 mg - Labs Labs: 08/14/17 06:50 08/14/17 06:50 Attending/Attestation - Attestation I have fully participated in the care of the patient.: Yes I have reviewed all pertinent clinical information, including history, physical exam and plan: Yes Notes (Text): 08/15/17 15:56 Medical record note made by the resident after discussion with my direction and input after the patient was personally seen and examined by me. I have reviewed the chart and agree that the record accurately reflects by personal performance of the history, physical exam, data review, and medical decision-making, in the course for the patient. I have also personally directed the plan of care. 86 year old female with history of HTN, Diastolic Dysfunction, Hyperlipidemia, Raynauds, Hypothyroid, GERD, Rajput's Esophagus and breast cancer who was initially admitted to [facility] inpatient with left lower extremity pain and weakness. MRI of lumbar spine shows multiple foraminal narrowing as well as herniated disc at L3-L4 and sclerotic lesion in body of S1. We have already discussed MRI findings with her private doctors.MRI of Brain was negative for acute stroke, showed small Meningioma.CT scan of abdomen and Pelvis was unremarkable.Patient left leg weakness has improved to 4/5.She is admitted to TCU for rehabilitation.She is participation in physical therapy. Continue tapering dose of prednsione. Upon discharge patient will follow up with her pMD, oncologist and her Primary Neuro surgeon. Management plan was discussed in detail with patient and daughter over the phone. Education was provided.
[2017-08-14] MEDS: Amoxicillin-Clav 875-125 mg Tab PO SCH ×2 (13:07→21:21)
[2017-08-14] MEDS: Cholecalciferol 1,000 INTLU TAB PO SCH (21:22)
[2017-08-14] MEDS: Metoprolol Succinate 25 mg XL Tab PO SCH (21:22)
[2017-08-15] MEDS: Enoxaparin 40 mg Syringe SC SCH (05:21)
[2017-08-15] MEDS: Pantoprazole 40 mg EC Tab PO SCH (05:22)
[2017-08-15] MEDS: Levothyroxine 75 MCG TAB PO SCH (05:22)
[2017-08-15] MEDS: Cholecalciferol 1,000 INTLU TAB PO SCH (21:24)
[2017-08-15] MEDS: Metoprolol Succinate 25 mg XL Tab PO SCH (21:24)
[2017-08-16] MEDS: Enoxaparin 40 mg Syringe SC SCH ×2 (05:32→05:35)
[2017-08-16] MEDS: Levothyroxine 75 MCG TAB PO SCH (05:32)
[2017-08-16] MEDS: Pantoprazole 40 mg EC Tab PO SCH (05:32)
--- NOTE | 2017-08-16 10:20 | CP.PCM.PN ---
<Malik Campbell - Last Filed: 08/16/17 10:20> Subjective - Date & Time of Evaluation Date of Evaluation: 08/16/17 Time of Evaluation: 09:15 - Subjective Subjective: Hospitalist Service Patient seen and examined at bedside. Patient reports no pain. Patient reports dramatic improvement in left hip pain and lower extremity weakness. Nurse reports no events overnight. Objective - Vital Signs/Intake and Output Vital Signs (last 24 hours): Temp Pulse Resp BP Pulse Ox 97.9 F 55 L 18 123/63 100 08/14/17 16:41 08/15/17 21:24 08/14/17 16:41 08/16/17 09:19 08/14/17 16:41 - Medications Medications: Current Medications Amitriptyline HCl (Elavil) 37.5 mg PO HS DILIP PRN Reason: Protocol Last Admin: 08/15/17 21:22 Dose: 37.5 mg Amlodipine Besylate (Norvasc) 5 mg PO DAILY DILIP PRN Reason: Protocol Last Admin: 08/16/17 09:19 Dose: 5 mg Aspirin (Ecotrin) 81 mg PO 0800 DILIP PRN Reason: Protocol Last Admin: 08/16/17 08:35 Dose: 81 mg Atorvastatin Calcium (Lipitor) 20 mg PO HS DILIP PRN Reason: Protocol Last Admin: 08/15/17 21:23 Dose: 20 mg Cholecalciferol (Vitamin D) 2,000 intlu PO HS DILIP PRN Reason: Protocol Last Admin: 08/15/17 21:24 Dose: 2,000 intlu Diphenhydramine HCl (Benadryl) 25 mg PO HS DILIP PRN Reason: Protocol Last Admin: 08/15/17 21:22 Dose: 25 mg Enoxaparin Sodium (Lovenox) 40 mg SC 0600 DILIP PRN Reason: Protocol Last Admin: 08/16/17 05:35 Dose: Not Given Gabapentin (Neurontin) 300 mg PO TID PRN; Protocol PRN Reason: moderate pain Hydrochlorothiazide (Hydrodiuril) 25 mg PO DAILY DILIP PRN Reason: Protocol Last Admin: 08/16/17 09:18 Dose: 25 mg Levothyroxine Sodium (Synthroid) 75 mcg PO 0600 DILIP PRN Reason: Protocol Last Admin: 08/16/17 05:32 Dose: 75 mcg Losartan Potassium (Cozaar) 100 mg PO DAILY DILIP PRN Reason: Protocol Last Admin: 08/16/17 09:18 Dose: 100 mg Metoprolol Succinate (Toprol Xl) 75 mg PO HS DILIP PRN Reason: Protocol Last Admin: 08/15/17 21:24 Dose: Not Given Pantoprazole Sodium (Protonix Ec Tab) 40 mg PO 0600 DILIP PRN Reason: Protocol Last Admin: 08/16/17 05:32 Dose: 40 mg Prednisone (Prednisone Tab) 20 mg PO DAILY DILIP Stop: 08/19/17 10:01 - Labs Labs: 08/14/17 06:50 08/14/17 06:50 - Constitutional Appears: Well, Non-toxic - Head Exam Head Exam: ATRAUMATIC, NORMOCEPHALIC - Eye Exam Eye Exam: EOMI, Normal appearance - ENT Exam ENT Exam: Mucous Membranes Moist - Neck Exam Neck Exam: Normal Inspection - Respiratory Exam Respiratory Exam: Clear to Ausculation Bilateral, NORMAL BREATHING PATTERN. absent: Accessory Muscle Use - Cardiovascular Exam Cardiovascular Exam: +S1, +S2 - GI/Abdominal Exam GI & Abdominal Exam: Soft, Normal Bowel Sounds - Neurological Exam Neurological Exam: Alert, Awake, Oriented x3 Neuro motor strength exam: Left Upper Extremity: 5, Right Upper Extremity: 5, Left Lower Extremity: 5, Right Lower Extremity: 5 - Psychiatric Exam Psychiatric exam: Normal Affect, Normal Mood - Skin Skin Exam: Dry, Intact, Normal Color, Warm Assessment and Plan - Assessment and Plan (Free Text) Assessment: (1) Left leg weakness Assessment and Plan: All Xrays negative MRI shows multiple foraminal narrowing as well as herniated disc at L3-L4 and sclerotic lesion in body of S1 Morphine and gabapentin Prednisone taper: 20 mg for two days , 10 mg for two days, 5 mg for one day Neurosurgery ([facility]) Neurology ([facility]) MRI brain unremarkable CT apd/pelvis unremarkable PT/OT Status: Acute Priority: Medium (2) Hypothyroidism Assessment and Plan: Synthroid 75 PO QAM Status: Acute (3) HTN (hypertension) Assessment and Plan: Norvasc 5 PO QD HCTZ 25 PO QD Metoprolol Succ 75 PO HS Valsartan 160 PO QD Status: Chronic Priority: High (4) 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 No need for prophylaxis for DVT No GI PPX indicated at this time Status: Acute Priority: Medium <Angel Aburto - Last Filed: 08/16/17 12:31> Objective - Vital Signs/Intake and Output Vital Signs (last 24 hours): Temp Pulse Resp BP Pulse Ox 98.2 F 55 L 18 123/63 99 08/15/17 17:00 08/15/17 21:24 08/15/17 17:00 08/16/17 09:19 08/15/17 17:00 - Medications Medications: Current Medications Amitriptyline HCl (Elavil) 37.5 mg PO HS DILIP PRN Reason: Protocol Last Admin: 08/15/17 21:22 Dose: 37.5 mg Amlodipine Besylate (Norvasc) 5 mg PO DAILY DILIP PRN Reason: Protocol Last Admin: 08/16/17 09:19 Dose: 5 mg Aspirin (Ecotrin) 81 mg PO 0800 DILIP PRN Reason: Protocol Last Admin: 08/16/17 08:35 Dose: 81 mg Atorvastatin Calcium (Lipitor) 20 mg PO HS DILIP PRN Reason: Protocol Last Admin: 08/15/17 21:23 Dose: 20 mg Cholecalciferol (Vitamin D) 2,000 intlu PO HS DILIP PRN Reason: Protocol Last Admin: 08/15/17 21:24 Dose: 2,000 intlu Diphenhydramine HCl (Benadryl) 25 mg PO HS DILIP PRN Reason: Protocol Last Admin: 08/15/17 21:22 Dose: 25 mg Enoxaparin Sodium (Lovenox) 40 mg SC 0600 DILIP PRN Reason: Protocol Last Admin: 08/16/17 05:35 Dose: Not Given Gabapentin (Neurontin) 300 mg PO TID PRN; Protocol PRN Reason: moderate pain Hydrochlorothiazide (Hydrodiuril) 25 mg PO DAILY DILIP PRN Reason: Protocol Last Admin: 08/16/17 09:18 Dose: 25 mg Levothyroxine Sodium (Synthroid) 75 mcg PO 0600 DILIP PRN Reason: Protocol Last Admin: 08/16/17 05:32 Dose: 75 mcg Losartan Potassium (Cozaar) 100 mg PO DAILY DILIP PRN Reason: Protocol Last Admin: 08/16/17 09:18 Dose: 100 mg Metoprolol Succinate (Toprol Xl) 75 mg PO HS DILIP PRN Reason: Protocol Last Admin: 08/15/17 21:24 Dose: Not Given Pantoprazole Sodium (Protonix Ec Tab) 40 mg PO 0600 DILIP PRN Reason: Protocol Last Admin: 08/16/17 05:32 Dose: 40 mg Prednisone (Prednisone Tab) 20 mg PO DAILY DILIP Stop: 08/19/17 10:01 - Labs Labs: 08/14/17 06:50 08/14/17 06:50 Attending/Attestation - Attestation I have personally seen and examined this patient.: Yes I have fully participated in the care of the patient.: Yes I have reviewed all pertinent clinical information, including history, physical exam and plan: Yes Notes (Text): 08/16/17 12:29 Medical record note made by the resident after discussion with my direction and input after the patient was personally seen and examined by me. I have reviewed the chart and agree that the record accurately reflects by personal performance of the history, physical exam, data review, and medical decision-making, in the course for the patient. I have also personally directed the plan of care. Patient is feeling better, there is no overnight issue.She is participating in Physical therapy and is ambulatory with the help of walker. In Summary is 86 year old female with history of HTN, Diastolic Dysfunction, Hyperlipidemia, Raynauds, Hypothyroid, GERD, Rajput's Esophagus and breast cancer who was initially admitted to [facility] inpatient with left lower extremity pain and weakness. MRI of lumbar spine shows multiple foraminal narrowing as well as herniated disc at L3-L4 and sclerotic lesion in body of S1. We have already discussed MRI findings with her private doctors.MRI of Brain was negative for acute stroke, showed small Meningioma.CT scan of abdomen and Pelvis was unremarkable.Patient left leg weakness has improved to 4/5.She is admitted to TCU for rehabilitation.She is on tapering dose of prednsione. Upon discharge patient will follow up with her pMD, oncologist and her Primary Neuro surgeon. Management plan was discussed in detail with patient and daughter over the phone. Education was provided.
[2017-08-16 15:48] VITALS: PULSE 75; RESP 16; TEMP 98; O2SAT 97
[2017-08-16] MEDS: Cholecalciferol 1,000 INTLU TAB PO SCH (21:26)
[2017-08-16] MEDS: Metoprolol Succinate 25 mg XL Tab PO SCH (21:26)
[2017-08-17] MEDS: Enoxaparin 40 mg Syringe SC SCH (05:34)
[2017-08-17] MEDS: Pantoprazole 40 mg EC Tab PO SCH (05:35)
[2017-08-17] MEDS: Levothyroxine 75 MCG TAB PO SCH (05:35)
--- NOTE | 2017-08-17 09:09 | CP.PCM.PN ---
Objective - Vital Signs/Intake and Output Vital Signs (last 24 hours): Temp Pulse Resp BP Pulse Ox 98 F 75 16 124/64 97 08/16/17 16:00 08/16/17 21:26 08/16/17 16:00 08/16/17 21:26 08/16/17 16:00 - Medications Medications: Current Medications Amitriptyline HCl (Elavil) 37.5 mg PO HS DILIP PRN Reason: Protocol Last Admin: 08/16/17 21:25 Dose: 37.5 mg Amlodipine Besylate (Norvasc) 5 mg PO DAILY DILIP PRN Reason: Protocol Last Admin: 08/16/17 09:19 Dose: 5 mg Aspirin (Ecotrin) 81 mg PO 0800 DILIP PRN Reason: Protocol Last Admin: 08/17/17 07:51 Dose: 81 mg Atorvastatin Calcium (Lipitor) 20 mg PO HS DILIP PRN Reason: Protocol Last Admin: 08/16/17 21:25 Dose: 20 mg Cholecalciferol (Vitamin D) 2,000 intlu PO HS DILIP PRN Reason: Protocol Last Admin: 08/16/17 21:26 Dose: 2,000 intlu Diphenhydramine HCl (Benadryl) 25 mg PO HS DILIP PRN Reason: Protocol Last Admin: 08/16/17 21:10 Dose: 25 mg Enoxaparin Sodium (Lovenox) 40 mg SC 0600 DILIP PRN Reason: Protocol Last Admin: 08/17/17 05:34 Dose: Not Given Gabapentin (Neurontin) 300 mg PO TID PRN; Protocol PRN Reason: moderate pain Hydrochlorothiazide (Hydrodiuril) 25 mg PO DAILY DILIP PRN Reason: Protocol Last Admin: 08/16/17 09:18 Dose: 25 mg Levothyroxine Sodium (Synthroid) 75 mcg PO 0600 DILIP PRN Reason: Protocol Last Admin: 08/17/17 05:35 Dose: 75 mcg Losartan Potassium (Cozaar) 100 mg PO DAILY DILIP PRN Reason: Protocol Last Admin: 08/16/17 09:18 Dose: 100 mg Metoprolol Succinate (Toprol Xl) 75 mg PO HS DILIP PRN Reason: Protocol Last Admin: 08/16/17 21:26 Dose: Not Given Pantoprazole Sodium (Protonix Ec Tab) 40 mg PO 0600 DILIP PRN Reason: Protocol Last Admin: 08/17/17 05:35 Dose: 40 mg Prednisone (Prednisone Tab) 20 mg PO DAILY DILIP Stop: 08/19/17 10:01 - Labs Labs: 08/14/17 06:50 08/14/17 06:50
[2017-08-17 10:07] VITALS: BP 92/62
--- NOTE | 2017-08-17 11:20 | CP.PCM.DIS ---
<Kamran Noonan - Last Filed: 08/17/17 11:34> Provider - Provider Date of Admission: 08/11/17 19:12 Attending physician: Massimo Baker MD Primary care physician: Marvin Reno MD Consults: Neuro: [facility] Neurosurg: Reji Time Spent in preparation of Discharge (in minutes): 45 Hospital Course - Lab Results Lab Results: Most Recent Lab Values WBC 7.3 10^3/ul (4.5-11.0) D 08/14/17 06:50 RBC 3.54 10^6/uL (3.5-6.1) 08/14/17 06:50 Hgb 10.9 g/dL (12.0-16.0) L 08/14/17 06:50 Hct 31.5 % (36.0-48.0) L 08/14/17 06:50 MCV 89.0 fl (80.0-105.0) D 08/14/17 06:50 MCH 30.8 pg (25.0-35.0) 08/14/17 06:50 MCHC 34.6 g/dl (31.0-37.0) 08/14/17 06:50 RDW 13.5 % (11.5-14.5) 08/14/17 06:50 Plt Count 223 10^3/uL (120.0-450.0) 08/14/17 06:50 MPV 9.4 fl (7.0-11.0) 08/14/17 06:50 Gran % 64.9 % (50.0-68.0) 08/14/17 06:50 Lymph % (Auto) 17.2 % (22.0-35.0) L 08/14/17 06:50 Meriwether % (Auto) 17.9 % (1.0-6.0) H 08/14/17 06:50 Eos % (Auto) 0.0 % (1.5-5.0) L 08/14/17 06:50 Baso % (Auto) 0.0 % (0.0-3.0) 08/14/17 06:50 Gran # 4.73 (1.4-6.5) 08/14/17 06:50 Lymph # (Auto) 1.3 (1.2-3.4) 08/14/17 06:50 Meriwether # (Auto) 1.3 (0.1-0.6) H 08/14/17 06:50 Eos # (Auto) 0.0 (0.0-0.7) 08/14/17 06:50 Baso # (Auto) 0.00 K/mm3 (0.0-2.0) 08/14/17 06:50 Sodium 136 mmol/L (132-148) 08/14/17 06:50 Potassium 3.8 mmol/L (3.6-5.0) 08/14/17 06:50 Chloride 99 mmol/L (98-107) 08/14/17 06:50 Carbon Dioxide 27 mmol/L (21-33) 08/14/17 06:50 Anion Gap 14 (10-20) 08/14/17 06:50 BUN 28 mg/dL (7-21) H 08/14/17 06:50 Creatinine 0.9 mg/dl (0.7-1.2) 08/14/17 06:50 Est GFR ( Amer) > 60 08/14/17 06:50 Est GFR (Non-Af Amer) 60 08/14/17 06:50 Random Glucose 103 mg/dL (70-110) 08/14/17 06:50 Calcium 9.6 mg/dL (8.4-10.5) 08/14/17 06:50 Phosphorus 2.9 mg/dL (2.5-4.5) 08/14/17 06:50 Magnesium 2.0 mg/dL (1.7-2.2) 08/14/17 06:50 Total Bilirubin 0.4 mg/dL (0.2-1.3) 08/14/17 06:50 AST 27 U/L (14-36) 08/14/17 06:50 ALT 26 U/L (7-56) 08/14/17 06:50 Alkaline Phosphatase 56 U/L (38-126) 08/14/17 06:50 Total Protein 6.4 g/dL (5.8-8.3) 08/14/17 06:50 Albumin 3.9 g/dL (3.0-4.8) 08/14/17 06:50 Globulin 2.5 gm/dL 08/14/17 06:50 Albumin/Globulin Ratio 1.5 (1.1-1.8) 08/14/17 06:50 - Hospital Course Hospital Course: Patient is a 86F with a PMH of HTN, Diastolic Dysfunction, Hypercholesterolemia , Raynauds, Hypothyroid, GERD, Barretts Esophagus and breast cancer who comes to the ED with a CC of Left leg weakness. She states the weakness began yesterday but has been worsening today. The weakness began to concern her so she came to the ED to have it evaluated. She states it is associated with the occasional throbbing or sharp pain but it is the weakness that is most concerning to her. She denies any numbness or tingling. Nothing makes it better or worse. She states that sometimes she feels tightness in the corresponding hip. The weakness has been constant and progressive since its onset. She also complains of some Left arm pain when she lifts the arm to 180 degrees. She states that she had one prior episode of Right upper thigh and hip pain that was exquisitely tender years ago but resolved with multiple epidurals and PT. Of Note she recently finished chemo for her breast CA and has repeat PET scan scheduled for August 13. All xrays done in the ED were normal. blood work normal. Hospital Course: MRI of the back revealed foraminal narrowing of L3- L4-L5 as well as scleortic lesion on S1 and bulging disc at L3-L4. Medical oncologist and surgical oncologist was made aware of this lesion. Patient was given 40 of solumedrol and symptoms began to resolve. Patient was feeling better but then had a fall and symptoms returned. She had 2/5 strength at this time. She was seen by neurosurgery and neuro who requested MRI of brain and CT abdomen and pelvis both of which were negative. She was started on decadron and evaluated for transfer to TCU. Her strength is 5/5. TCU Course: She attended PT daily and continued on prednisone taper. She continued to improve. The remainder of her TCU course was unremarkable. PMH: HTN, Diastolic Dysfunction, Hypercholesterolemia, Raynauds, Hypothyroid, GERD, Barretts Esophagus and breast cancer PSH: Appendectomy 194, Left Cataract 1998, Right Cataract 1999, Lumbar Laminectomy 2002, Cervical Laminectomy 2004, Bunionectomy w/ Hammertoe 2010, Cardiac Cath x3, Epidural x3, D & C, Endoscopy, Colonoscopy FH: Mother had CHF and in her 70s, Father had COPD and in his 80s. SH: Denies smoking, drinking or drug use All: NKA Discharge Exam - Head Exam Head Exam: ATRAUMATIC, NORMOCEPHALIC - Eye Exam Eye Exam: EOMI, Normal appearance, PERRL Pupil Exam: NORMAL ACCOMODATION, PERRL - Respiratory Exam Respiratory Exam: Clear to PA & Lateral, NORMAL BREATHING PATTERN, UNREMARKABLE - Cardiovascular Exam Cardiovascular Exam: REGULAR RHYTHM, +S1, +S2. absent: Bradycardia, Tachycardia - GI/Abdominal Exam GI & Abdominal Exam: Normal Bowel Sounds, Soft, Unremarkable. absent: Distended , Tenderness - Neurological Exam Neurological exam: Alert, CN II-XII Intact, Normal Gait, Oriented x3, Reflexes Normal - Psychiatric Exam Psychiatric exam: Normal Affect, Normal Mood - Skin Skin Exam: Dry, Intact, Normal Color, Warm Discharge Plan - Discharge Medications Prescriptions: Prednisone [Janneth] 10 mg PO DAILY 2 Days tablet.dr - Follow Up Plan Condition: GOOD Disposition: HOME/ ROUTINE Instructions: Herniated Disc, Generalized Weakness (DC) Additional Instructions: 1. Upon discharge, patient to obtain MRI images of the spine. 2. Please follow up with PMD in 7-10 days. 3. Please go for Outpatient PT 3 times per week for 3 months. i have provided you with a prescription for this. 4. Please continue your home medications 5. Please continue on your Prednisone taper. 6. Please come back to the ED if symptoms return. Referrals: Marvin Reno MD [Primary Care Provider] - <Massimo Baker - Last Filed: 08/17/17 12:56> Provider - Provider Date of Admission: 08/11/17 19:12 Attending physician: Massimo Baker MD Primary care physician: Marvin Reno MD [facility] Course - Lab Results Lab Results: Most Recent Lab Values WBC 7.3 10^3/ul (4.5-11.0) D 08/14/17 06:50 RBC 3.54 10^6/uL (3.5-6.1) 08/14/17 06:50 Hgb 10.9 g/dL (12.0-16.0) L 08/14/17 06:50 Hct 31.5 % (36.0-48.0) L 08/14/17 06:50 MCV 89.0 fl (80.0-105.0) D 08/14/17 06:50 MCH 30.8 pg (25.0-35.0) 08/14/17 06:50 MCHC 34.6 g/dl (31.0-37.0) 08/14/17 06:50 RDW 13.5 % (11.5-14.5) 08/14/17 06:50 Plt Count 223 10^3/uL (120.0-450.0) 08/14/17 06:50 MPV 9.4 fl (7.0-11.0) 08/14/17 06:50 Gran % 64.9 % (50.0-68.0) 08/14/17 06:50 Lymph % (Auto) 17.2 % (22.0-35.0) L 08/14/17 06:50 Meriwether % (Auto) 17.9 % (1.0-6.0) H 08/14/17 06:50 Eos % (Auto) 0.0 % (1.5-5.0) L 08/14/17 06:50 Baso % (Auto) 0.0 % (0.0-3.0) 08/14/17 06:50 Gran # 4.73 (1.4-6.5) 08/14/17 06:50 Lymph # (Auto) 1.3 (1.2-3.4) 08/14/17 06:50 Meriwether # (Auto) 1.3 (0.1-0.6) H 08/14/17 06:50 Eos # (Auto) 0.0 (0.0-0.7) 08/14/17 06:50 Baso # (Auto) 0.00 K/mm3 (0.0-2.0) 08/14/17 06:50 Sodium 136 mmol/L (132-148) 08/14/17 06:50 Potassium 3.8 mmol/L (3.6-5.0) 08/14/17 06:50 Chloride 99 mmol/L (98-107) 08/14/17 06:50 Carbon Dioxide 27 mmol/L (21-33) 08/14/17 06:50 Anion Gap 14 (10-20) 08/14/17 06:50 BUN 28 mg/dL (7-21) H 08/14/17 06:50 Creatinine 0.9 mg/dl (0.7-1.2) 08/14/17 06:50 Est GFR ( Amer) > 60 08/14/17 06:50 Est GFR (Non-Af Amer) 60 08/14/17 06:50 Random Glucose 103 mg/dL (70-110) 08/14/17 06:50 Calcium 9.6 mg/dL (8.4-10.5) 08/14/17 06:50 Phosphorus 2.9 mg/dL (2.5-4.5) 08/14/17 06:50 Magnesium 2.0 mg/dL (1.7-2.2) 08/14/17 06:50 Total Bilirubin 0.4 mg/dL (0.2-1.3) 08/14/17 06:50 AST 27 U/L (14-36) 08/14/17 06:50 ALT 26 U/L (7-56) 08/14/17 06:50 Alkaline Phosphatase 56 U/L (38-126) 08/14/17 06:50 Total Protein 6.4 g/dL (5.8-8.3) 08/14/17 06:50 Albumin 3.9 g/dL (3.0-4.8) 08/14/17 06:50 Globulin 2.5 gm/dL 08/14/17 06:50 Albumin/Globulin Ratio 1.5 (1.1-1.8) 08/14/17 06:50 Attending/Attestation - Attestation I have personally seen and examined this patient.: Yes I have fully participated in the care of the patient.: Yes I have reviewed all pertinent clinical information, including history, physical exam and plan: Yes Notes (Text): I have seen and examined the patient at bedside. Agree with the above note with the following additions/ exceptions: Briefly this is 86 year old female with history of HTN, Diastolic Dysfunction, Hypercholesterolemia, Raynauds, Hypothyroid, GERD, Rajput's Esophagus and breast cancer who came for evaluation of left lower extremity pain and weakness. MRI of lumbar spine shows multiple foraminal narrowing as well as herniated disc at L3-L4 and sclerotic lesion in body of S1. We have already discussed MRI findings with her private doctors. MRI of Brain was negative for acute stroke, showed small Meningioma. CT scan of abdomen and Pelvis was unremarkable. Patient left leg weakness has improved to 4/5. She has been participating in physical therapy. Patient is scheduled for PET scan as an outpatient next week. She lives alone and was independent prior to this admission. Continue outpatient physical therapy. Upon discharge patient will follow up with Dr Hernandez, oncologist and neurosurgeon.
== END 2017-08-17 12:31 | disposition home or self-care (01) | DRG 946 ==
LOC: TRCU 19:12
PROVIDERS: ADMIT Internal Medicine; ATTEND Hospitalist
PROC: F07Z9ZZ Gait Training/Functional Ambulation Treatment (ICD-10-PCS; principal; 2017-08-12)
PROC: F08Z4ZZ Home Management Treatment (ICD-10-PCS; 2017-08-12)
DX: R53.1 Weakness (principal); M51.26 Other intervertebral disc displacement, lumbar region; E78.00 Pure hypercholesterolemia, unspecified; E03.9 Hypothyroidism, unspecified; K21.9 Gastro-esophageal reflux disease without esophagitis; K22.70 Barrett's esophagus without dysplasia; I73.00 Raynaud's syndrome without gangrene; I10 Essential (primary) hypertension; J44.9 Chronic obstructive pulmonary disease, unspecified; E55.9 Vitamin D deficiency, unspecified; G47.00 Insomnia, unspecified; M79.605 Pain in left leg; Z85.3 Personal history of malignant neoplasm of breast; Z90.11 Acquired absence of right breast and nipple

== ENCOUNTER 2018-02-01 10:26 | Inpatient (IN) | payer MEDICARE, OTHER ==
[2018-02-01] MEDS ORDERED: Piperacill/Tazo 4.5gm in NS 4.5 GM/100 ML BAG IVPB STA (11:19)
[2018-02-01] MEDS ORDERED: Vancomycin 1gm in NS 250ml 1 GM/250 ML BAG IVPB STA (11:19)
[2018-02-01] MEDS ORDERED: Sodium Chloride 0.9% 1,000 ML IV STA ×2 (11:25→20:37)
[2018-02-01 11:38] LABS: VENOUS BLOOD GAS PO2 35 mm/Hg (30-55); VENOUS BLOOD PH 7.38 (7.32-7.43)
[2018-02-01 11:48] LABS: ALB/GLOB RATIO 1.3 (1.1-1.8); ALBUMIN 3.8 g/dL (3.0-4.8); CALCIUM 9.2 mg/dL (8.4-10.5)
[2018-02-01 11:58] LABS: EOS % 0.3 % (1.5-5.0); GRAN # 3.26 (1.4-6.5); GRAN % 86.2 % (50.0-68.0); HEMOGLOBIN 10.7 g/dL (12.0-16.0); LYMPH # 0.3 (1.2-3.4); MEAN CELL VOLUME 88.8 fl (80.0-105.0); MEAN CORPUSCULAR HEMOGLOBIN 29.9 pg (25.0-35.0); MEAN CORPUSCULAR HGB CONC 33.6 g/dl (31.0-37.0); MONO # 0.2 (0.1-0.6); MONO % 4.5 % (1.0-6.0); RBC 3.58 10^6/uL (3.5-6.1); RED CELL DISTRIBUTION WIDTH 16.9 % (11.5-14.5); WHITE BLOOD COUNT 3.8 10^3/uL (4.5-11.0)
[2018-02-01 12:00] LABS: TROPONIN I 0.01 ng/mL
--- NOTE | 2018-02-01 12:15 | ED PDOC ---
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 Patient reports that yesterday she started experiencing a fever of 103F with associated chills, generalized weakness, and nausea. She states that today she started experiencing diaphoresis. Per patient she was on chemo regimen for 8 months, and had finished with chem in June. However, she is currently taking 3 oral chemo medications. Of note she has chronic intermittent SOB due to h/o COPD, however reports no SOB, states that her breathing has improved since starting a new COPD medication. She also states that last week her WBC was low. Patient denies shortness of breath, chest pain, dyspnea on exertion, abdominal pain, vomiting, diarrhea, leg pain, lower extremity swelling, or any other complaint. PMD: Oncologist in [place] Time/Duration: 24 hours Symptom Onset: Sudden Symptom Course: Unchanged Context: Home Past Medical History - Provider Review Nursing Documentation Reviewed: Yes - Past History Past History: No Previous - Infectious Disease Hx of Infectious Diseases: None - Tetanus Immunization Tetanus Immunization: Unknown - Cardiac Hx Cardiac Disorders: Yes Hx Hypertension: Yes Other/Comment: Diastolic Dysfunction - Pulmonary Hx Respiratory Disorders: Yes Hx Chronic Obstructive Pulmonary Disease (COPD): Yes - Neurological Hx Neurological Disorder: No - HEENT Hx HEENT Disorder: Yes Hx Cataracts: Yes - Renal Hx Renal Disorder: No - Endocrine/Metabolic Hx Hypothyroidism: Yes - Hematological/Oncological Hx Blood Disorders: No - Integumentary Hx Dermatological Disorder: No - Musculoskeletal/Rheumatological Hx Falls: Yes (recent fall) - Gastrointestinal Hx Gastrointestinal Disorders: Yes (gerd/barretts esophagus) - Genitourinary/Gynecological Hx Genitourinary Disorders: Yes Hx Reproductive Disorders: Yes (r breast ca w/chemo dx 03/2016) - Psychiatric Hx Psychophysiologic Disorder: No Hx Emotional Abuse: No Hx Physical Abuse: No Hx Substance Use: No - Past Surgical History Past Surgical History: Non-Contributing - Surgical History Hx Appendectomy: Yes Hx Cataract Extraction: Yes (bilateral) Hx Cardiac Catheterization: Yes Hx Cholecystectomy: Yes Hx Dilation and Curettage: Yes Hx Mastectomy: Yes (Right) Hx Orthopedic Surgery: Yes (bunionectomy, hammertoe) Other/Comment: rt mastectomy rt breast ca, epidural, colonoscopy - Anesthesia Hx Anesthesia Reactions: No Hx Malignant Hyperthermia: No - Suicidal Assessment Feels Threatened In Home Enviroment: No Family/Social History - Physician Review Nursing Documentation Reviewed: Yes Family/Social History: No Known Family HX Smoking Status: Never Smoked Hx Alcohol Use: No Hx Substance Use: No Hx Substance Use Treatment: No Allergies/Home Meds Allergies/Adverse Reactions: Allergies No Known Allergies Allergy (Verified 08/11/17 20:01) Home Medications: Home Meds Medication Instructions Recorded Confirmed Aspirin [Ecotrin] 81 mg PO DAILY 08/31/15 02/01/18 Calcium Carbonate/Vitamin D3 1 tab PO HS 08/31/15 02/01/18 [Caltrate 600 Plus D3 Tablet] Cholecalciferol (Vitamin D3) 2,000 iu PO HS 08/31/15 02/01/18 [Vitamin D3] Levothyroxine [Synthroid] 1 tab PO QAM 08/31/15 02/01/18 Metoprolol Succinate [Toprol Xl] 75 mg PO HS 08/31/15 02/01/18 Simvastatin 20 mg PO QPM 08/31/15 02/01/18 Omeprazole [Prilosec] 20 mg PO DAILY 09/03/15 02/01/18 Amitriptyline [Elavil] 75.5 mg PO HS 12/14/15 02/01/18 Ascorbate Calcium/Bioflavonoid 1 each PO DAILY 02/01/18 02/01/18 [Cheryl-C 500 mg Tablet] Fluticasone/Vilanterol 100/25 02/01/18 [Breo Ellipta 100-25 MCG INH] Fulvestrant [Faslodex] 50 mg IM Q30D 02/01/18 02/01/18 Multivitamin [Multivitamins] 1 each PO DAILY 02/01/18 02/01/18 Olmesartan Medoxomil [Benicar] 20 mg PO DAILY 02/01/18 02/01/18 Palbociclib [Ibrance] 125 mg PO DAILY 02/01/18 02/01/18 hydroCHLOROthiazide [Hydrodiuril] 25 mg PO DAILY 02/01/18 02/01/18 Review of Systems - Physician Review All systems were reviewed & negative as marked: Yes - Review of Systems Constitutional: Fevers, Other (chills; generalized weakness) Respiratory: absent: SOB Cardiovascular: absent: Chest Pain, Edema (lower extremity), MALIK, Syncope Gastrointestinal: absent: Abdominal Pain, Diarrhea Musculoskeletal: absent: Myalgias (leg pain) Physical Exam Vital Signs Reviewed: Yes Vital Signs Temp Pulse Resp BP Pulse Ox 02/01/18 10:38 98.2 F 70 18 92/46 L 97 Temperature: Afebrile Blood Pressure: Hypotensive (84/35 bp at the bedside) Pulse: Regular Respiratory Rate: Normal Appearance: Positive for: Other (mild distress, pt is diaphoretic) Mental Status: Positive for: Alert and Oriented X 3 - Systems Exam Head: Present: Atraumatic, Normocephalic Pupils: Present: PERRL Extroacular Muscles: Present: EOMI Conjunctiva: Present: Normal Mouth: Present: Moist Mucous Membranes Neck: Present: Normal Range of Motion Respiratory/Chest: Present: Clear to Auscultation, Good Air Exchange. No: Respiratory Distress, Accessory Muscle Use Cardiovascular: Present: Regular Rate and Rhythm, Normal S1, S2. No: Murmurs Abdomen: No: Tenderness, Distention, Peritoneal Signs Back: Present: Normal Inspection Upper Extremity: Present: Normal Inspection. No: Cyanosis, Edema Lower Extremity: Present: Normal Inspection. No: Edema Neurological: Present: GCS=15, CN II-XII Intact, Speech Normal Skin: Present: Warm, Normal Color, Diaphoretic. No: Rashes Psychiatric: Present: Alert, Oriented x 3, Normal Insight, Normal Concentration Medical Decision Making ED Course and Treatment: 02/01/18 11:19 Impression: 87 year old female who is complaining of fever with associated chills, nausea, and generalized weakness, which started yesterday. Differential Diagnosis included but are not limited to: sepsis, pneumonia, CHF Plan: -- EKG -- Chest X-ray -- IV fluids -- Zosyn IV -- Blood and Urine culture -- Reassess and disposition Prior Visits: Notes and results from previous visits were reviewed. Progress Notes: EKG: NSR at 64 bpm, (-) acute ST changes. CXR : NAD. Labs reviewed : wbc 3.8, hgb 10.7, lactate 1.9, BNP 1270, BUN 38/creat 1.5 (elevated compared to prior labs in 07/2017 - at that time her bun/creat was wnl), trop (-), UA +UTI. 13:18 Case d/w Dr. Fleming, agrees with plan to admit the patient for neutropenic fever, UTI. 15:00 On reevaluation, patient c/o shaking chills, oral T 98.6, BP 121/60, patient is tachycardic. She is refusing rectal temp at this time. On exam, patient remains awake alert and oriented 3 in mild to moderate distress. Neck is supple, repeat neuro exam shows no focal findings. 15:40 Rectal temp 103.4. Patient given tylenol po. anesthesia resident Dr. Mims notified. - Lab Interpretations Lab Results: 02/01/18 11:26 02/01/18 11:26 Lab Results 02/01/18 11:26: Sodium 134, Chloride 98, Potassium 4.0, Carbon Dioxide 27, Anion Gap 13, BUN 38 H, Creatinine 1.5 H, Est GFR ( Amer) 40, Est GFR (Non-Af Amer) 33, Random Glucose 133 H, Calcium 9.2, Phosphorus 2.4 L, Magnesium 1.8, Total Bilirubin 0.5, AST 31, ALT 27, Alkaline Phosphatase 76, Troponin I 0.01, NT-Pro-B Natriuret Pep 1270 H, Total Protein 6.7, Albumin 3.8, Globulin 2.9, Albumin/Globulin Ratio 1.3 02/01/18 11:26: pO2 35, VBG pH 7.38, VBG pCO2 45.0, VBG HCO3 26.6, VBG Total CO2 28.0, VBG O2 Sat (Calc) 71.2 H, VBG Base Excess 1.0, VBG Potassium 4.0, Sodium 133.0, Chloride 99.0, Glucose 136 H, Lactate 1.9, FiO2 21.0, Venous Blood Potassium 4.0 02/01/18 11:26: WBC 3.8 L, RBC 3.58, Hgb 10.7 L, Hct 31.8 L, MCV 88.8, MCH 29.9, MCHC 33.6, RDW 16.9 H, Plt Count 133, MPV 10.0, Gran % 86.2 H, Lymph % (Auto) 9.0 L, Hughes % (Auto) 4.5, Eos % (Auto) 0.3 L, Baso % (Auto) 0.0, Gran # 3.26, L ymph # (Auto) 0.3 L, Hughes # (Auto) 0.2, Eos # (Auto) 0.0, Baso # (Auto) 0.00 - RAD Interpretation Radiology Orders: 02/01/18 11:19 CHEST PORTABLE [RAD] Stat - Medication Orders Current Medication Orders: Vancomycin HCl (Vancomycin 1gm) 1 gm in 250 mls @ 167 mls/hr IVPB STAT STA; Protocol Stop: 02/01/18 12:48 Sodium Chloride (Sodium Chloride 0.9%) 1,000 mls @ 1,000 mls/hr IV .Q1H STA Stop: 02/01/18 12:24 Last Admin: 02/01/18 11:45 Dose: 1,000 mls/hr eMAR Start Stop Document 02/01/18 11:45 MR (Rec: 02/01/18 11:45 MR [id number]) Intravenous Solution Start Date 02/01/18 Start Time 11:45 End Date 02/01/18 End time 12:45 Total Infusion Time 60 Discontinued Medications Piperacillin Sod/Tazobactam Sod (Zosyn 4.5 Gm In Ns 100ml) 4.5 gm in 100 mls @ 200 mls/hr IVPB STAT STA; Protocol Stop: 02/01/18 11:48 Last Admin: 02/01/18 11:44 Dose: 200 mls/hr eMAR Start Stop Document 02/01/18 11:44 MR (Rec: 02/01/18 11:44 MR [id number]) Intravenous Solution Start Date 02/01/18 Start Time 11:44 End Date 02/01/18 End time 12:14 Total Infusion Time 30 - PA / DIFFUSION FURNACE OPERATOR / Resident Statement MD/DO has reviewed & agrees with the documentation as recorded. - Scribe Statement The provider has reviewed the documentation as recorded by the Scribe Te Olson Provider Scribe Attestation: All medical record entries made by the Scribe were at my direction and personally dictated by me. I have reviewed the chart and agree that the record accurately reflects my personal performance of the history, physical exam, medical decision making, and the department course for this patient. I have also personally directed, reviewed, and agree with the discharge instructions and disposition. Disposition/Present on Arrival - Present on Arrival Any Indicators Present on Arrival: No History of DVT/PE: No History of Uncontrolled Diabetes: No Urinary Catheter: No History of Decub. Ulcer: No History Surgical Site Infection Following: None - Disposition Have Diagnosis and Disposition been Completed?: Yes Diagnosis: Neutropenic fever, UTI (urinary tract infection), Dehydration Disposition: HOSPITALIZED Disposition Time: 13:18 Patient Plan: Observation Patient Problems: Current Active Problems Problem Status Onset Neutropenic fever Acute UTI (urinary tract infection) Acute Condition: FAIR
[2018-02-01 12:39] LABS: INR 1.12; PARTIAL THROMBOPLASTIN TIME 16.6 Seconds (25.1-36.5); PROTHROMBIN TIME 12.9 SECONDS (9.4-12.5)
--- NOTE | 2018-02-01 12:54 | CARD ---
APPROVED REPORT Date of service: 02/01/2018 EKG Measurement Heart [id number] 156P [id number] <Conclusion> Suspect arm lead reversal, interpretation assumes no reversal Normal sinus rhythm Suggest Repeat EKG with Normal Placement of Leads.
[2018-02-01 13:19] LABS: URINE APPEARANCE CLEAR (CLEAR); URINE BILIRUBIN NEGATIVE (NEGATIVE); URINE BLOOD SMALL (NEGATIVE); URINE COLOR YELLOW (YELLOW); URINE GLUCOSE (UA) NEGATIVE (NEGATIVE); URINE LEUKOCYTE ESTERASE MODERATE Leu/uL (NEGATIVE); URINE PROTEIN TRACE mg/dL (<30 mg/dL); URINE UROBILINOGEN 0.2 E.U./dL (<1 E.U./dL)
[2018-02-01 13:24] LABS: URINE AMORPHOUS SEDIMENT FEW; URINE BACTERIA MANY (NEG); URINE WBC 25 - 30 /hpf (0-6)
--- NOTE | 2018-02-01 14:23 | RAD ---
Date of service: 02/01/2018 HISTORY: Sepsis Patient COMPARISON: No prior. FINDINGS: LUNGS: No active pulmonary disease. PLEURA: No significant pleural effusion identified, no pneumothorax apparent. CARDIOVASCULAR: There is atherosclerotic calcification of the aortic arch. Normal cardiac size. No pulmonary vascular congestion. OSSEOUS STRUCTURES: No significant abnormalities. VISUALIZED UPPER ABDOMEN: Normal. OTHER FINDINGS: None. IMPRESSION: No active disease.
--- NOTE | 2018-02-01 14:51 | CP.PCM.HP ---
<PrasannaLauren - Last Filed: 02/01/18 17:24> History of Present Illness - History of Present Illness History of Present Illness: PGY-[address] Clement CC: Rigors, UTI, r/o SBP Ms Lopez, 87 F, PMHx breast cancer with metastasis to liver and bone, C/O generalized weakness and fever x 1 day. Yesterday at 3:30pm, Tmax 103F with associated chills, generalized weakness, and nausea. She noticed her abdomen has been distended with epigastric pain that is constant. She has decreased PO intake so not sure if pain is associated with food. She denies dysuria, but has increased urination with sensation of incomplete emptying She states that last week her WBC was low. ROS - chronic intermittent cough from COPD. (+) ROBLES, (+) chills/fever. (+) epigastric pain. (+) lower extremity swelling, chronic Denies chest pain, SOB, dyspnea on exertion, vomiting, diarrhea, constipation, leg pain Last BM yesterday, normal consistency In the ED, BP 92/46, RR 22-24. WBC 3.8, Hb 10.7 (MCV 80s) Lactate 1.9 CMP shows BUN 38/Cre 1.5 (baseline 0.9) BNP 1270 U/A epithelial 4-5/ WBC 25-30, (+) palomo est. neg nitrates EKG NSR. Qtc 392 CXR _No active disease ED, blood culture, urine culture, 1L NS bolus, vanco and zosyn PMHx R Breast cancer with mets to liver and bone, hormone positive, HER2 negative Dx Mar 2016, s/p R mastectomy, chem___(x 8 month, finished June 2017), No radiation, Year___ Currently on 3 oral chemo medication On Ibrance (kinase inhibitor), Xgeva, and Fulvestrant on maintenance CHF (diatolic dysfunction), HTN/HLD Raynauds COPD Cataracts Hypothyroidism Falls, 2 months ago gerd/barretts esophagus PSH b/l cataract extraction Hx cardic catherterization Cholecystectomy D&C R mastectomy Appendectomy 194, Left Cataract 1998, Right Cataract 1999, Lumbar Laminectomy 2002, Cervical Laminectomy 2004, Bunionectomy w/ Hammertoe 2010, Cardiac Cath x3, Epidural x3, D & C, Endoscopy, Colonoscopy FH Mother had CHF and in her 70s, Father had COPD and in his 80s. SH Live by herself. Denies ever drink, smoke, drug. 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 Fitter: Dr Mota Present on Admission - Present on Admission Any Indicators Present on Admission: No Past Patient History - Infectious Disease Hx of Infectious Diseases: None - Tetanus Immunizations Tetanus Immunization: Unknown - Past Social History Smoking Status: Never Smoked - CARDIAC Hx Cardiac Disorders: Yes Hx Hypertension: Yes Other/Comment: Diastolic Dysfunction - PULMONARY Hx Respiratory Disorders: Yes Hx Chronic Obstructive Pulmonary Disease (COPD): Yes - NEUROLOGICAL Hx Neurological Disorder: No - HEENT Hx HEENT Problems: Yes Hx Cataracts: Yes - RENAL Hx Chronic Kidney Disease: No - ENDOCRINE/METABOLIC Hx Hypothyroidism: Yes - HEMATOLOGICAL/ONCOLOGICAL Hx Blood Disorders: No - INTEGUMENTARY Hx Dermatological Problems: No - MUSCULOSKELETAL/RHEUMATOLOGICAL Hx Falls: Yes (recent fall) - GASTROINTESTINAL Hx Gastrointestinal Disorders: Yes (gerd/barretts esophagus) - GENITOURINARY/GYNECOLOGICAL Hx Genitourinary Disorders: Yes Hx Reproductive Disorders: Yes (r breast ca w/chemo dx 03/2016) - PSYCHIATRIC Hx Psychophysiologic Disorder: No Hx Emotional Abuse: No Hx Physical Abuse: No Hx Substance Use: No - SURGICAL HISTORY Hx Appendectomy: Yes Hx Cataract Extraction: Yes (bilateral) Hx Cardiac Catheterization: Yes Hx Cholecystectomy: Yes Hx Dilation and Curettage: Yes Hx Mastectomy: Yes (Right) Hx Orthopedic Surgery: Yes (bunionectomy, hammertoe) Other/Comment: rt mastectomy rt breast ca, epidural, colonoscopy - ANESTHESIA Hx Anesthesia Reactions: No Hx Malignant Hyperthermia: No Meds Allergies/Adverse Reactions: Allergies Allergy/AdvReac Type Severity Reaction Status Date / Time No Known Allergies Allergy Verified 08/11/17 20:01 Physical Exam - Constitutional Appears: Other (rigor) - Head Exam Head Exam: ATRAUMATIC, NORMAL INSPECTION, NORMOCEPHALIC - Eye Exam Eye Exam: EOMI, Normal appearance, PERRL. absent: Scleral icterus Pupil Exam: NORMAL ACCOMODATION - ENT Exam ENT Exam: Mucous Membranes Dry - Neck Exam Neck exam: Negative for: Lymphadenopathy Additional comments: No JVD - Respiratory Exam Respiratory Exam: Clear to Auscultation Bilateral. absent: Decreased Breath Sounds, Rales, Rhonchi, Wheezes - Cardiovascular Exam Cardiovascular Exam: REGULAR RHYTHM, +S1, +S2. absent: Systolic Murmur - GI/Abdominal Exam GI & Abdominal Exam: Distended, Soft, Tenderness (epigastric). absent: Firm, Guarding, Hernia, Rebound, Rigid - Extremities Exam Extremities exam: Positive for: normal capillary refill, pedal pulses present. Negative for: calf tenderness, pedal edema - Back Exam Back exam: absent: CVA tenderness (L), CVA tenderness (R) - Neurological Exam Neurological exam: Alert, CN II-XII Intact, Oriented x3, Reflexes Normal Additional comments: motor sensory grossly intact move all extremities equally - Psychiatric Exam Psychiatric exam: Normal Affect, Normal Mood - Skin Skin Exam: Dry, Warm Results - Vital Signs Recent Vital Signs: Last Vital Signs Temp 98.2 F 02/01/18 10:38 Pulse 70 02/01/18 10:38 Resp 18 02/01/18 10:38 BP 92/46 L 02/01/18 10:38 Pulse Ox 97 02/01/18 10:38 - Labs Result Diagrams: 02/01/18 11:26 02/01/18 11:26 Labs: Laboratory Results - last 24 hr 02/01/18 02/01/18 02/01/18 11:26 11:26 11:26 WBC 3.8 L RBC 3.58 Hgb 10.7 L Hct 31.8 L MCV 88.8 MCH 29.9 MCHC 33.6 RDW 16.9 H Plt Count 133 MPV 10.0 Gran % 86.2 H Lymph % (Auto) 9.0 L Newton % (Auto) 4.5 Eos % (Auto) 0.3 L Baso % (Auto) 0.0 Gran # 3.26 Lymph # (Auto) 0.3 L Newton # (Auto) 0.2 Eos # (Auto) 0.0 Baso # (Auto) 0.00 PT 12.9 H INR 1.12 APTT 16.6 L pO2 35 VBG pH 7.38 VBG pCO2 45.0 VBG HCO3 26.6 VBG Total CO2 28.0 VBG O2 Sat (Calc) 71.2 H VBG Base Excess 1.0 VBG Potassium 4.0 Sodium 133.0 Chloride 99.0 Glucose 136 H Lactate 1.9 FiO2 21.0 Potassium Carbon Dioxide Anion Gap BUN Creatinine Est GFR ( Amer) Est GFR (Non-Af Amer) Random Glucose Calcium Phosphorus Magnesium Total Bilirubin AST ALT Alkaline Phosphatase Troponin I NT-Pro-B Natriuret Pep Total Protein Albumin Globulin Albumin/Globulin Ratio Venous Blood Potassium 4.0 Urine Color Urine Appearance Urine pH Ur Specific [place] Urine Protein Urine Glucose (UA) Urine Ketones Urine Blood Urine Nitrate Urine Bilirubin Urine Urobilinogen Ur Leukocyte Esterase Urine RBC Urine WBC Ur Epithelial Cells Amorphous Sediment Urine Bacteria Urine Other 02/01/18 02/01/18 11:26 12:30 WBC RBC Hgb Hct MCV MCH MCHC RDW Plt Count MPV Gran % Lymph % (Auto) Newton % (Auto) Eos % (Auto) Baso % (Auto) Gran # Lymph # (Auto) Newton # (Auto) Eos # (Auto) Baso # (Auto) PT INR APTT pO2 VBG pH VBG pCO2 VBG HCO3 VBG Total CO2 VBG O2 Sat (Calc) VBG Base Excess VBG Potassium Sodium 134 Chloride 98 Glucose Lactate FiO2 Potassium 4.0 Carbon Dioxide 27 Anion Gap 13 BUN 38 H Creatinine 1.5 H Est GFR ( Amer) 40 Est GFR (Non-Af Amer) 33 Random Glucose 133 H Calcium 9.2 Phosphorus 2.4 L Magnesium 1.8 Total Bilirubin 0.5 AST 31 ALT 27 Alkaline Phosphatase 76 Troponin I 0.01 NT-Pro-B Natriuret Pep 1270 H Total Protein 6.7 Albumin 3.8 Globulin 2.9 Albumin/Globulin Ratio 1.3 Venous Blood Potassium Urine Color Yellow Urine Appearance Clear Urine pH 8.0 Ur Specific [place] 1.010 Urine Protein Trace H Urine Glucose (UA) Negative Urine Ketones Negative Urine Blood Small H Urine Nitrate Negative Urine Bilirubin Negative Urine Urobilinogen 0.2 Ur Leukocyte Esterase Moderate H Urine RBC 10 - 15 Urine WBC 25 - 30 Ur Epithelial Cells 4 - 5 Amorphous Sediment Few Urine Bacteria Many Urine Other Uyeast Assessment & Plan - Assessment and Plan (Free Text) Plan: Rigor likely from fever - check CK - fever control by tylenol prn Sepsis from UTI vs SBP - Per ID, merrem and vanco (renal dose) - NS @ 150 - follow on abdominal u/s, hep panel BRANDON likely pre-renal from dehydration - trend creatinine - follow on FeNa or FeUrea to differentiate pre-renal vs intrinsi - unlikely post-renal. strict i/o Abdominal pain with nausea - zofran PRN - liquid diet for now, advance tomorrow - abdominal U/S HTN/HLD - SBP < 100 so hold all BP meds - continue statin, ASA Hypothyrodism - continue synthroid Neuropathy - continue home elavil PVX - protonix, heparin SC s/r/d/w Dr Clement <Mona Clement - Last Filed: 02/03/18 08:06> Results - Vital Signs Recent Vital Signs: Last Vital Signs Temp 98.1 F 02/03/18 06:00 Pulse 85 02/03/18 06:00 Resp 20 02/03/18 06:00 BP 129/64 02/03/18 06:00 Pulse Ox 98 02/03/18 06:00 - Labs Result Diagrams: 02/03/18 05:30 02/03/18 05:30 Labs: Laboratory Results - last 24 hr 02/01/18 02/01/18 02/02/18 20:54 20:58 06:30 WBC RBC Hgb Hct MCV MCH MCHC RDW Plt Count MPV Gran % Lymph % (Auto) Newton % (Auto) Eos % (Auto) Baso % (Auto) Gran # Lymph # (Auto) Newton # (Auto) Eos # (Auto) Baso # (Auto) Sodium Potassium Chloride Carbon Dioxide Anion Gap BUN Creatinine Est GFR ( Amer) Est GFR (Non-Af Amer) Random Glucose Hemoglobin A1c 6.3 Calcium Total Bilirubin AST ALT Alkaline Phosphatase Total Protein Albumin Globulin Albumin/Globulin Ratio Procalcitonin 19.24 H Hepatitis A IgM Ab Negative Hep Bs Antigen Negative Hep B Core IgM Ab Negative Hepatitis C Antibody Negative Influenza Typ A,B (EIA) 02/02/18 02/03/18 02/03/18 10:40 05:30 05:30 WBC 2.2 L D RBC 3.24 L Hgb 9.7 L Hct 28.8 L MCV 88.9 MCH 29.9 MCHC 33.7 RDW 17.1 H Plt Count 102 L MPV 9.9 Gran % 75.0 H Lymph % (Auto) 11.2 L Newton % (Auto) 9.8 H Eos % (Auto) 1.8 Baso % (Auto) 2.2 Gran # 1.68 Lymph # (Auto) 0.3 L Newton # (Auto) 0.2 Eos # (Auto) 0.0 Baso # (Auto) 0.05 Sodium 134 Potassium 4.0 Chloride 105 Carbon Dioxide 22 Anion Gap 11 BUN 11 Creatinine 0.8 Est GFR ( Amer) > 60 Est GFR (Non-Af Amer) > 60 Random Glucose 115 H Hemoglobin A1c Calcium 8.0 L Total Bilirubin 0.4 AST 25 ALT 36 Alkaline Phosphatase 89 Total Protein 5.8 Albumin 3.0 Globulin 2.7 Albumin/Globulin Ratio 1.1 Procalcitonin Hepatitis A IgM Ab Hep Bs Antigen Hep B Core IgM Ab Hepatitis C Antibody Influenza Typ A,B (EIA) Negative for flu a/b Attending/Attestation - Attestation I have personally seen and examined this patient.: Yes I have fully participated in the care of the patient.: Yes I have reviewed all pertinent clinical information: Yes Notes (Text): Patient seen and examined by me with resident at 2PM with resident 02/01/18. Case including HPI, physical exam, and assessment and plan discussed with reside nt. Agree with above with following additions/corrections. Patient is an 87-year-old female past medical history significant for right breast cancer with metastases to the liver and bone on oral chemotherapy, diastolic CHF, hypertension, hyperlipidemia, Raynaud's, COPD, cataracts, hypothyroidism, falls, and GERD the presented to the emergency room with "body shaking and fever." Patient states that yesterday 01/31/2018, around 3 PM, patient started to have what felt like chills. Patient took her temperature and had a fever of 102. Patient states that her whole body was shaking and she was having pain from the shaking in her muscles. She states that the same thing happened again overnight around 4 AM. Patient woke up in the morning and still was not feeling well so came into the emergency room. Patient denies any sick contacts. She did not try any medications at home for this. Patient states that she felt it may be secondary to the chemotherapy medications that she is on. She also had some nausea and decreased appetite. No vomiting. Complains of abdominal pain that is chronic. She states that she feels her abdomen has been getting larger. She states she does have metastases to the liver. Patient denies any dysuria. Patient states she does have increased urinary frequency and feels like she is unable to fully urinate. She states she chronically gets UTIs. Patient states that she did have a headache with fevers however resolved. No dizziness. No chest pain or shortness of breath. No diarrhea or constipation. 12 point review of systems reviewed by me. See above HPI, all other systems negative. Physical exam: General: Awake and lying in bed in no acute distress HEENT: Normocephalic, atraumatic. Extraocular muscles intact, pupils equal and reactive, no scleral icterus. Oropharynx is pink. Positive dry mucous membranes. Neck is supple. Hearing grossly intact. Ears and nose externally unremarkable. Cardiovascular: Regular rhythm. Normal S1 and S2. No rubs or gallops apprec iated Pulmonary: Normal respiratory effort. No rhonchi, rales, or wheezing appreciated. Gastrointestinal: Soft, mild distention. Mild epigastric tenderness. Positive bowel sounds all 4 quadrants. No guarding. Musculoskeletal: Moves all extremities. No calf tenderness. No CVA tenderness. No edema appreciated Central nervous system: AAO x3, CN 2-12 grossly intact. Dermatologic: Skin warm and dry. Assessment and plan: Patient is an 87-year-old female past medical history significant for right breast cancer with metastases to the liver and bone on oral chemotherapy, diastolic CHF, hypertension, hyperlipidemia, Raynaud's, COPD, cataracts, hypothyroidism, falls, and GERD the presented to the emergency room with "body shaking and fever." 1. Sepsis likely secondary to UTI. Patient with leukopenia, tachypnea, hypotension, and fever. Also with intermittent rigors. Rule out other sources of infection. Patient is distended. Rule out ascites and possible SBP. ID consulted, recommendations appreciated. Placed on IV fluids. Started on Merrem. Procalcitonin ordered. Chest x-ray as read by me shows no active disease. Abdominal ultrasound ordered to rule out ascites. Pending blood and urine c ultures. 2. Hypotension. Secondary to sepsis. Continue with IV fluids. Monitor on telemetry. 3. Acute kidney injury. Likely secondary to dehydration. Continue fluids. Follow up repeat labs in a.m. 4. Abdominal pain and nausea. Likely secondary to liver metastases. Follow up abdominal ultrasound. We'll place on liquid diet for now. Advance as tolerated. 5. History of hypertension. Home hydrochlorothiazide and Toprol-XL held secondary to hypotension. 6. Hyperlipidemia. Patient takes simvastatin at home. Patient placed on Lipitor here. 7. COPD. Patient not in acute exacerbation. Patient placed on Brovana and Pulmicort. 8. History of chronic diastolic CHF. Compensated. Continue to monitor for now. 9. Metastatic breast cancer. Patient is on 3 oral chemotherapy agents. Held for now. Patient follows with oncologist at [place]. 10. Hypothyroidism. Continue home Synthroid. 11. GI/DVT prophylaxis. Pepcid/Heparin 12. Advanced Directive. Discussed with patient. Patient is a DNR/DNI Case was discussed in detail with the patient regarding current diagnosis and treatment plan. All questions answered.
[2018-02-01] MEDS ORDERED: Sodium Chloride 0.9% 1,000 ML IV SCH ×2 (16:30→20:32)
[2018-02-01] MEDS ORDERED: Albuterol-Ipratrop 3 mg / 0.5 (3 ml) UD IH PRN (17:30)
[2018-02-01] MEDS: Vancomycin 1gm in NS 250ml 1 GM/250 ML BAG IVPB SCH (18:35)
[2018-02-01 20:57] LABS: VENOUS BLOOD GAS BASE EXCESS 1.7 mmol/L (0.0-2.0); VENOUS BLOOD GAS PO2 36 mm/Hg (30-55); VENOUS BLOOD PH 7.44 (7.32-7.43)
[2018-02-01] MEDS ORDERED: Fluticasone-Salmeterol 100-50mcg Diskus IH SCH (22:00)
[2018-02-01] MEDS ORDERED: DiphenhydrAMINE 12.5 mg/5 ml LIQ UD (5 ml) PO STA (22:26)
[2018-02-01] MEDS: MEROPENEM 500 MG in NS 500 MG/50 ML BAG IVPB SCH (22:31)
[2018-02-01] MEDS: Cholecalciferol 1,000 INTLU TAB PO SCH (22:31)
[2018-02-01] MEDS: Sodium Chloride 0.9% 1,000 ML IV SCH (22:32)
[2018-02-02 05:17] VITALS: RESP 20
[2018-02-02 05:22] VITALS: BMI 29.2
[2018-02-02] MEDS ORDERED: Pantoprazole 40 mg EC Tab PO SCH (06:00)
[2018-02-02] MEDS: Sodium Chloride 0.9% 1,000 ML IV SCH ×2 (06:58→21:33)
[2018-02-02 07:06] LABS: BASO # 0.02 K/mm3 (0.0-2.0); BASO % 0.6 % (0.0-3.0); EOS # 0.1 (0.0-0.7); EOS % 1.4 % (1.5-5.0); GRAN # 2.72 (1.4-6.5); GRAN % 78.4 % (50.0-68.0); HEMOGLOBIN 9.6 g/dL (12.0-16.0); LYMPH # 0.4 (1.2-3.4); LYMPH % 12.7 % (22.0-35.0); MEAN CELL VOLUME 89.3 fl (80.0-105.0); MEAN CORPUSCULAR HEMOGLOBIN 30.2 pg (25.0-35.0); MEAN CORPUSCULAR HGB CONC 33.8 g/dl (31.0-37.0); MEAN PLATELET VOLUME 9.5 fl (7.0-11.0); MONO # 0.2 (0.1-0.6); MONO % 6.9 % (1.0-6.0); RBC 3.18 10^6/uL (3.5-6.1); RED CELL DISTRIBUTION WIDTH 17.3 % (11.5-14.5); WHITE BLOOD COUNT 3.5 10^3/uL (4.5-11.0)
[2018-02-02 07:17] LABS: ALB/GLOB RATIO 1.1 (1.1-1.8); ALBUMIN 2.9 g/dL (3.0-4.8); CALCIUM 7.7 mg/dL (8.4-10.5)
[2018-02-02] MEDS: Budesonide 0.25 mg/2 ml Inhal Susp UD IH SCH ×2 (07:19→20:29)
[2018-02-02] MEDS: Arformoterol 15 mcg/2 ml Inh Sol IH SCH ×2 (07:19→20:29)
--- NOTE | 2018-02-02 07:42 | CP.PCM.CON ---
<Christie Reed - Last Filed: 02/02/18 12:29> History of Present Illness - History of Present Illness History of Present Illness: Infectious Disease Consult for Meghna Pardo PGY3 This is an 87yo female with past medical history of HTN, dyslipidemia, CAD, CHF, COPD, Hypothyroidism, GERD, Raynaud, breast Ca stage IV (ER/NM+) s/p systemic chemo 06/2017 now on PO Chemo, UTI (+ E.coli) who came to ED for weakness, fever and chills for 1 day. She reports having high fevers at home. She checked and it was 103. She decided to come to ED. She reports having some urinary frequency, but denies any burning, or hematuria. Patient denies chest pain, shortness of breath, cough, abdominal pain, numbness/tingling, nausea/vomiting/diarrhea, sick contacts, recent travel. She does take chemo medication (Ibrance, Faslodex and Xgeva). Patient reports she follow up with her oncologist regularly. Past medical history: HTN, dyslipidemia, CAD, CHF, COPD, Hypothyroidism, GERD, Raynaud, breast Ca stage IV (ER/NM+) s/p systemic chemo 06/2017 now on PO Chemo, UTI (+ E.coli) Past surgical history: PCI x3, cholecystectomy, R mastectomy, appendectomy, cervical and lumbar laminectomy, bilateral cataract Home meds: Reviewed as per MAR Allergies: NKDA Social history: Denies EtOH, drug or tobacco use. Lives alone. Independent in most ADLs Family history: Heart problems- both parents. DNR/DNI Review of Systems - Review of Systems All systems: reviewed and no additional remarkable complaints except Review of Systems: 12 point ROS reviewed as per HPI and is otherwise negative. Past Patient History - Infectious Disease Hx of Infectious Diseases: None - Tetanus Immunizations Tetanus Immunization: Unknown - Past Social History Smoking Status: Former Smoker - CARDIAC Hx Cardiac Disorders: Yes Hx Hypertension: Yes - PULMONARY Hx Respiratory Disorders: Yes Hx Chronic Obstructive Pulmonary Disease (COPD): Yes - NEUROLOGICAL Hx Neurological Disorder: No - HEENT Hx HEENT Problems: Yes Hx Cataracts: Yes - RENAL Hx Chronic Kidney Disease: No - ENDOCRINE/METABOLIC Hx Hypothyroidism: Yes - HEMATOLOGICAL/ONCOLOGICAL Hx Blood Disorders: No - INTEGUMENTARY Hx Dermatological Problems: No - MUSCULOSKELETAL/RHEUMATOLOGICAL Hx Falls: Yes (recent fall) - GASTROINTESTINAL Hx Gastrointestinal Disorders: Yes (gerd/barretts esophagus) - GENITOURINARY/GYNECOLOGICAL Hx Genitourinary Disorders: Yes - PSYCHIATRIC Hx Psychophysiologic Disorder: No Hx Emotional Abuse: No Hx Physical Abuse: No - SURGICAL HISTORY Hx Surgeries: Yes Hx Appendectomy: Yes Hx Cardiac Catheterization: Yes Hx Cholecystectomy: Yes Hx Mastectomy: Yes (Right) Hx Orthopedic Surgery: Yes (bunionectomy, hammertoe) Other/Comment: rt mastectomy rt breast ca, epidural, colonoscopy - ANESTHESIA Hx Anesthesia Reactions: No Hx Malignant Hyperthermia: No Meds Allergies/Adverse Reactions: Allergies Allergy/AdvReac Type Severity Reaction Status Date / Time No Known Allergies Allergy Verified 08/11/17 20:01 - Medications Medications: Current Medications Acetaminophen (Tylenol 325mg Tab) 650 mg PO Q4 PRN PRN Reason: Fever >100.4 F Albuterol/Ipratropium (Duoneb 3 Mg/0.5 Mg (3 Ml) Ud) 3 ml IH [id number] PRN PRN Reason: Shortness of Breath Amitriptyline HCl (Elavil) [address] [facility] Last Admin: 02/01/18 22:30 Dose: 75 mg Arformoterol Tartrate (Brovana) 15 mcg IH [id number] [facility] Last Admin: 02/02/18 07:19 Dose: Not Given Aspirin (Ecotrin) 81 mg PO DAILY [facility] Atorvastatin Calcium (Lipitor) 10 mg PO DIN [facility] Budesonide (Pulmicort Respules) 0.25 mg IH [id number] [facility] Last Admin: 02/02/18 07:19 Dose: Not Given Cholecalciferol (Vitamin D) 2,[address] [facility] Last Admin: 02/01/18 22:31 Dose: 2,000 intlu Famotidine (Pepcid) [address] [facility] Last Admin: 02/01/18 22:38 Dose: 20 mg Heparin Sodium (Porcine) (Heparin) 5,000 units SC Q8 [facility]; Protocol Last Admin: 02/02/18 06:57 Dose: Not Given Vancomycin HCl (Vancomycin 1gm) 1 gm in 250 mls @ 167 mls/hr IVPB DAILY [facility]; Protocol Last Admin: 02/01/18 18:35 Dose: 167 mls/hr Meropenem/Sodium Chloride (Merrem Iv 500 Mg/Ns 50 Ml) 500 mg in 50 mls @ 100 mls/hr IVPB Q12 [facility]; Protocol Last Admin: 02/01/18 22:31 Dose: 100 mls/hr Sodium Chloride (Sodium Chloride 0.9%) 1,000 mls @ 100 mls/hr IV .Q10H [facility] Last Admin: 02/02/18 06:58 Dose: Not Given Levothyroxine Sodium (Synthroid) 75 mcg PO ACB [facility] Multivitamins (Thera Tab) 1 tab PO DAILY [facility] Ondansetron HCl (Zofran Inj) 4 mg IVP Q6H PRN PRN Reason: Nausea/Vomiting Physical Exam - Constitutional Appears: No Acute Distress - Head Exam Head Exam: ATRAUMATIC, NORMAL INSPECTION, NORMOCEPHALIC - Eye Exam Eye Exam: Normal appearance, PERRL Pupil Exam: NORMAL ACCOMODATION, PERRL - ENT Exam ENT Exam: Mucous Membranes Moist - Respiratory Exam Respiratory Exam: Clear to Auscultation Bilateral, NORMAL BREATHING PATTERN. absent: Rales, Rhonchi, Wheezes - Cardiovascular Exam Cardiovascular Exam: REGULAR RHYTHM, +S1, +S2. absent: Gallop, Rubs, Systolic Murmur - GI/Abdominal Exam GI & Abdominal Exam: Normal Bowel Sounds, Soft. absent: Mass, Rebound, Rigid, Tenderness - Extremities Exam Extremities exam: Positive for: normal inspection. Negative for: calf tenderness, pedal edema - Neurological Exam Neurological exam: Alert, CN II-XII Intact, Oriented x3 - Psychiatric Exam Psychiatric exam: Normal Affect, Normal Mood - Skin Skin Exam: Dry, Warm Results - Vital Signs Recent Vital Signs: Last Vital Signs Temp 98.3 F 02/01/18 22:29 Pulse 63 02/01/18 22:29 Resp 20 02/02/18 00:31 BP 89/37 L 02/01/18 22:29 Pulse Ox 100 02/01/18 22:29 - Labs Result Diagrams: 02/02/18 06:30 02/02/18 06:30 Labs: Laboratory Results - last 24 hr 02/01/18 02/01/18 02/01/18 11:26 11:26 11:26 WBC 3.8 L RBC 3.58 Hgb 10.7 L Hct 31.8 L MCV 88.8 MCH 29.9 MCHC 33.6 RDW 16.9 H Plt Count 133 MPV 10.0 Gran % 86.2 H Lymph % (Auto) 9.0 L Vermilion % (Auto) 4.5 Eos % (Auto) 0.3 L Baso % (Auto) 0.0 Gran # 3.26 Lymph # (Auto) 0.3 L Vermilion # (Auto) 0.2 Eos # (Auto) 0.0 Baso # (Auto) 0.00 PT 12.9 H INR 1.12 APTT 16.6 L pO2 35 VBG pH 7.38 VBG pCO2 45.0 VBG HCO3 26.6 VBG Total CO2 28.0 VBG O2 Sat (Calc) 71.2 H VBG Base Excess 1.0 VBG Potassium 4.0 Sodium 133.0 Chloride 99.0 Glucose 136 H Lactate 1.9 FiO2 21.0 Potassium Carbon Dioxide Anion Gap BUN Creatinine Est GFR ( Amer) Est GFR (Non-Af Amer) Random Glucose Calcium Phosphorus Magnesium Total Bilirubin AST ALT Alkaline Phosphatase Troponin I NT-Pro-B Natriuret Pep Total Protein Albumin Globulin Albumin/Globulin Ratio Venous Blood Potassium 4.0 Urine Color Urine Appearance Urine pH Ur Specific Mcallen Urine Protein Urine Glucose (UA) Urine Ketones Urine Blood Urine Nitrate Urine Bilirubin Urine Urobilinogen Ur Leukocyte Esterase Urine RBC Urine WBC Ur Epithelial Cells Amorphous Sediment Urine Bacteria Urine Other 02/01/18 02/01/18 02/01/18 11:26 12:30 20:54 WBC RBC Hgb Hct MCV MCH MCHC RDW Plt Count MPV Gran % Lymph % (Auto) Vermilion % (Auto) Eos % (Auto) Baso % (Auto) Gran # Lymph # (Auto) Vermilion # (Auto) Eos # (Auto) Baso # (Auto) PT INR APTT pO2 36 VBG pH 7.44 H VBG pCO2 38.0 L VBG HCO3 25.8 VBG Total CO2 27.0 VBG O2 Sat (Calc) 77.0 H VBG Base Excess 1.7 VBG Potassium 4.5 Sodium 134 135.0 Chloride 98 106.0 Glucose 154 H Lactate 1.8 FiO2 21.0 Potassium 4.0 Carbon Dioxide 27 Anion Gap 13 BUN 38 H Creatinine 1.5 H Est GFR ( Amer) 40 Est GFR (Non-Af Amer) 33 Random Glucose 133 H Calcium 9.2 Phosphorus 2.4 L Magnesium 1.8 Total Bilirubin 0.5 AST 31 ALT 27 Alkaline Phosphatase 76 Troponin I 0.01 NT-Pro-B Natriuret Pep 1270 H Total Protein 6.7 Albumin 3.8 Globulin 2.9 Albumin/Globulin Ratio 1.3 Venous Blood Potassium 4.5 Urine Color Yellow Urine Appearance Clear Urine pH 8.0 Ur Specific Mc[place]en 1.010 Urine Protein Trace H Urine Glucose (UA) Negative Urine Ketones Negative Urine Blood Small H Urine Nitrate Negative Urine Bilirubin Negative Urine Urobilinogen 0.2 Ur Leukocyte Esterase Moderate H Urine RBC 10 - 15 Urine WBC 25 - 30 Ur Epithelial Cells 4 - 5 Amorphous Sediment Few Urine Bacteria Many Urine Other Uyeast 02/02/18 02/02/18 06:30 06:30 WBC 3.5 L RBC 3.18 L Hgb 9.6 L Hct 28.4 L MCV 89.3 MCH 30.2 MCHC 33.8 RDW 17.3 H Plt Count 95 L MPV 9.5 Gran % 78.4 H Lymph % (Auto) 12.7 L Vermilion % (Auto) 6.9 H Eos % (Auto) 1.4 L Baso % (Auto) 0.6 Gran # 2.72 Lymph # (Auto) 0.4 L Vermilion # (Auto) 0.2 Eos # (Auto) 0.1 Baso # (Auto) 0.02 PT INR APTT pO2 VBG pH VBG pCO2 VBG HCO3 VBG Total CO2 VBG O2 Sat (Calc) VBG Base Excess VBG Potassium Sodium 136 Chloride 106 Glucose Lactate FiO2 Potassium 3.9 Carbon Dioxide 26 Anion Gap 8 L BUN 26 H Creatinine 1.1 Est GFR ( Amer) 57 Est GFR (Non-Af Amer) 47 Random Glucose 102 Calcium 7.7 L Phosphorus Magnesium Total Bilirubin 0.4 AST 27 ALT 35 Alkaline Phosphatase 78 Troponin I NT-Pro-B Natriuret Pep Total Protein 5.6 L Albumin 2.9 L Globulin 2.7 Albumin/Globulin Ratio 1.1 Venous Blood Potassium Urine Color Urine Appearance Urine pH Ur Specific Mc[place]en Urine Protein Urine Glucose (UA) Urine Ketones Urine Blood Urine Nitrate Urine Bilirubin Urine Urobilinogen Ur Leukocyte Esterase Urine RBC Urine WBC Ur Epithelial Cells Amorphous Sediment Urine Bacteria Urine Other Assessment & Plan - Assessment and Plan (Free Text) Assessment: 1. Severe Sepsis - may be secondary to UTI but will rule out other source versus medication side effect (Faslodex) 2. Breast ca - metastatic to liver and bone - currently on oral chemotherapy 3. CAD 4. CHF 5. COPD 6. Hypothyroid 7. Raynauds Plan: Septic work up pending. Patient is not neutropenic. Cultures pending. Influenza negative. Will start patient on Merrem and Vanc. Will make further recommendations once cultures are available. Case seen, discussed and reviewed with Dr. Fina Reed PGY3 - Date & Time Date: 02/02/18 Time: 12:50 <Allen Harden - Last Filed: 02/02/18 16:37> Meds - Medications Medications: Current Medications Acetaminophen (Tylenol 325mg Tab) 650 mg PO Q4 PRN PRN Reason: Fever >100.4 F Albuterol/Ipratropium (Duoneb 3 Mg/0.5 Mg (3 Ml) Ud) 3 ml IH [id number] PRN PRN Reason: Shortness of Breath Amitriptyline HCl (Elavil) 75 mg PO HS [facility] Last Admin: 02/01/18 22:30 Dose: 75 mg Arformoterol Tartrate (Brovana) 15 mcg IH [id number] [facility] Last Admin: 02/02/18 07:19 Dose: Not Given Aspirin (Ecotrin) 81 mg PO DAILY [facility] Last Admin: 02/02/18 12:24 Dose: 81 mg Atorvastatin Calcium (Lipitor) 10 mg PO DIN [facility] Budesonide (Pulmicort Respules) 0.25 mg IH [id number] [facility] Last Admin: 02/02/18 07:19 Dose: Not Given Cholecalciferol (Vitamin D) 2,000 intlu PO HS [facility] Last Admin: 02/01/18 22:31 Dose: 2,000 intlu Famotidine (Pepcid) 20 mg PO HS [facility] Last Admin: 02/01/18 22:38 Dose: 20 mg Heparin Sodium (Porcine) (Heparin) 5,000 units SC Q8 [facility]; Protocol Last Admin: 02/02/18 13:15 Dose: 5,000 units Vancomycin HCl (Vancomycin 1gm) 1 gm in 250 mls @ 167 mls/hr IVPB DAILY [facility]; Protocol Last Admin: 02/02/18 12:24 Dose: 167 mls/hr Sodium Chloride (Sodium Chloride 0.9%) 1,000 mls @ 100 mls/hr IV .Q10H [facility] Last Admin: 02/02/18 06:58 Dose: Not Given Meropenem (Merrem Iv 1 Gm Premix) 1 gm in 50 mls @ 100 mls/hr IVPB Q12 [facility]; Protocol Last Admin: 02/02/18 12:24 Dose: 100 mls/hr Levothyroxine Sodium (Synthroid) 75 mcg PO ACB [facility] Last Admin: 02/02/18 12:26 Dose: 75 mcg Multivitamins (Thera Tab) 1 tab PO DAILY [facility] Last Admin: 02/02/18 12:24 Dose: 1 tab Ondansetron HCl (Zofran Inj) 4 mg IVP Q6H PRN PRN Reason: Nausea/Vomiting Results - Vital Signs Recent Vital Signs: Last Vital Signs Temp 98.5 F 02/02/18 14:00 Pulse 86 02/02/18 14:00 Resp 20 02/02/18 14:00 BP 123/60 02/02/18 14:00 Pulse Ox 90 L 02/02/18 14:00 - Labs Result Diagrams: 02/02/18 06:30 02/02/18 06:30 Labs: Laboratory Results - last 24 hr 02/01/18 02/01/18 02/01/18 20:54 20:54 20:58 WBC RBC Hgb Hct MCV MCH MCHC RDW Plt Count MPV Gran % Lymph % (Auto) Vermilion % (Auto) Eos % (Auto) Baso % (Auto) Gran # Lymph # (Auto) Vermilion # (Auto) Eos # (Auto) Baso # (Auto) pO2 36 VBG pH 7.44 H VBG pCO2 38.0 L VBG HCO3 25.8 VBG Total CO2 27.0 VBG O2 Sat (Calc) 77.0 H VBG Base Excess 1.7 VBG Potassium 4.5 Sodium 135.0 Chloride 106.0 Glucose 154 H Lactate 1.8 FiO2 21.0 Potassium Carbon Dioxide Anion Gap BUN Creatinine Est GFR ( Amer) Est GFR (Non-Af Amer) Random Glucose Hemoglobin A1c Calcium Total Bilirubin AST ALT Alkaline Phosphatase Total Protein Albumin Globulin Albumin/Globulin Ratio Procalcitonin 19.24 H Venous Blood Potassium 4.5 Hepatitis A IgM Ab Negative Hep Bs Antigen Negative Hep B Core IgM Ab Negative Hepatitis C Antibody Negative Influenza Typ A,B (EIA) 02/02/18 02/02/18 02/02/18 06:30 06:30 06:30 WBC 3.5 L RBC 3.18 L Hgb 9.6 L Hct 28.4 L MCV 89.3 MCH 30.2 MCHC 33.8 RDW 17.3 H Plt Count 95 L MPV 9.5 Gran % 78.4 H Lymph % (Auto) 12.7 L Vermilion % (Auto) 6.9 H Eos % (Auto) 1.4 L Baso % (Auto) 0.6 Gran # 2.72 Lymph # (Auto) 0.4 L Vermilion # (Auto) 0.2 Eos # (Auto) 0.1 Baso # (Auto) 0.02 pO2 VBG pH VBG pCO2 VBG HCO3 VBG Total CO2 VBG O2 Sat (Calc) VBG Base Excess VBG Potassium Sodium 136 Chloride 106 Glucose Lactate FiO2 Potassium 3.9 Carbon Dioxide 26 Anion Gap 8 L BUN 26 H Creatinine 1.1 Est GFR ( Amer) 57 Est GFR (Non-Af Amer) 47 Random Glucose 102 Hemoglobin A1c 6.3 Calcium 7.7 L Total Bilirubin 0.4 AST 27 ALT 35 Alkaline Phosphatase 78 Total Protein 5.6 L Albumin 2.9 L Globulin 2.7 Albumin/Globulin Ratio 1.1 Procalcitonin Venous Blood Potassium Hepatitis A IgM Ab Hep Bs Antigen Hep B Core IgM Ab Hepatitis C Antibody Influenza Typ A,B (EIA) 02/02/18 10:40 WBC RBC Hgb Hct MCV MCH MCHC RDW Plt Count MPV Gran % Lymph % (Auto) Vermilion % (Auto) Eos % (Auto) Baso % (Auto) Gran # Lymph # (Auto) Vermilion # (Auto) Eos # (Auto) Baso # (Auto) pO2 VBG pH VBG pCO2 VBG HCO3 VBG Total CO2 VBG O2 Sat (Calc) VBG Base Excess VBG Potassium Sodium Chloride Glucose Lactate FiO2 Potassium Carbon Dioxide Anion Gap BUN Creatinine Est GFR ( Amer) Est GFR (Non-Af Amer) Random Glucose Hemoglobin A1c Calcium Total Bilirubin AST ALT Alkaline Phosphatase Total Protein Albumin Globulin Albumin/Globulin Ratio Procalcitonin Venous Blood Potassium Hepatitis A IgM Ab Hep Bs Antigen Hep B Core IgM Ab Hepatitis C Antibody Influenza Typ A,B (EIA) Negative for flu a/b Assessment & Plan - Assessment and Plan (Free Text) Plan: Infectious Diseases Attending Physician Attestation Patient seen and examined, discussed with registered medical transcriptionist. I have reviewed the patient's history of present illness, past medical, family and social histories, personal history, physical exam, lab findings and imaging studies. I agree with the above findings, assessment and plan. In addition, we have started the patient on a dose of IV Vancomycin and renally-adjusted Merrem for this patient SIRS, R/O sepsis source to be determined in this patient with breast cancer. Follow up blood, urine cx, PCT. CXR is negative for infiltrates. Will monitor clinically.
[2018-02-02] MEDS: MEROPENEM 500 MG in NS 500 MG/50 ML BAG IVPB SCH (10:00)
--- NOTE | 2018-02-02 12:07 | US ---
Date of service: 02/01/2018 HISTORY: epigastric pain with abdominal fullness COMPARISON: Correlation made with prior abdominal ultrasound 03/17/[address] scan of the abdomen pelvis 08/10/2017. This study is limited due to body habitus and bowel gas. The pancreas is not visualized. TECHNIQUE: Sonographic evaluation of the abdomen. FINDINGS: LIVER: Measures 14.4 cm. Normal echogenicity of the liver parenchyma.. There are multiple at least (at least 4 ) solid-appearing masses scattered throughout the hepatic parenchyma possibly representing metastatic disease. Recommend follow-up CT scan of the abdomen and pelvis.. There are at least 2 lesions in the right lobe of the liver that the 1st measuring approximately 3.3 and the 2nd measuring approximately 2.0 cm in greatest dimension. The at least 2 lesions left lobe liver the largest measuring approximately 3.8 and the 2nd measuring approximately 2.8 cm in greatest dimension. Liver also exhibits increased attenuation suggesting fatty infiltration however other infiltrative hepatocellular disease process not excluded. No intrahepatic bile duct dilatation. GALLBLADDER: Cholecystectomy. COMMON BILE DUCT: Measures 5.9 mm. No stones. No dilatation. PANCREAS: Pancreas not visualized due to body habitus and bowel gas. RIGHT KIDNEY: Measures 9.6 x 3.3 x 6.3cm. Normal echogenicity. No calculus, mass, or hydronephrosis. Small lower pole cyst measuring 2.5 cm in greatest dimension. LEFT KIDNEY: Measures 11.0 x 5.2 x 5.3cm. Normal echogenicity. No calculus, mass, or hydronephrosis. Large cyst measuring approximately 4.7 cm in greatest dimension. SPLEEN: Normal in size and contour. No mass. AORTA: No aneurysmal dilatation. IVC: Unremarkable. OTHER FINDINGS: None. IMPRESSION: Somewhat limited study as described above. Multiple hepatic masses possibly representing metastatic lesions. Recommend follow-up on CT scan abdomen and pelvis. Bilateral renal cysts. These findings discussed with emergency room nurse Ramy at approximately 12 p.m. 02/02/2018.
[2018-02-02] MEDS: Vancomycin 1gm in NS 250ml 1 GM/250 ML BAG IVPB SCH (12:24)
[2018-02-02] MEDS: Meropenem IV 1 gm in NS 1 GM/50 ML BAG IVPB SCH ×2 (12:24→21:28)
[2018-02-02] MEDS: Multivitamin Therapeutic Tab PO SCH (12:24)
[2018-02-02] MEDS: Levothyroxine 75 MCG TAB PO SCH (12:26)
[2018-02-02 12:45] LABS: HEPATITIS B SURFACE AG Negative (NEGATIVE)
[2018-02-02 12:51] LABS: HEPATITIS A IGM NEGATIVE (NEGATIVE); HEPATITIS B CORE AB NEGATIVE (NEGATIVE)
[2018-02-02 13:02] LABS: HEPATITIS C ANTIBODY NEGATIVE (NEGATIVE)
--- NOTE | 2018-02-02 15:42 | CP.PCM.PN ---
<Kailey Lowry - Last Filed: 02/02/18 15:38> Subjective - Date & Time of Evaluation Date of Evaluation: 02/02/18 Time of Evaluation: 11:15 - Subjective Subjective: Kailey Lowry PGY1 Medicine Progress note Patient seen and examined at bedside. BP of 89/37 overnight, given 2L of NS with improvement in BP. Patient states rigors and chills have resolved. Offers no new complaints at this time. Denies nausea, vomiting, chills, fevers, CP, SOB, urinary complaints, numbness, tingling and swelling. Objective - Vital Signs/Intake and Output Vital Signs (last 24 hours): Temp Pulse Resp BP Pulse Ox 98.5 F 86 20 123/60 90 L 02/02/18 14:00 02/02/18 14:00 02/02/18 14:00 02/02/18 14:00 02/02/18 14:00 Intake and Output: 02/02/18 02/02/18 06:59 18:59 Intake Total 250 Balance 250 - Medications Medications: Current Medications Acetaminophen (Tylenol 325mg Tab) 650 mg PO Q4 PRN PRN Reason: Fever >100.4 F Albuterol/Ipratropium (Duoneb 3 Mg/0.5 Mg (3 Ml) Ud) 3 ml IH [id number] PRN PRN Reason: Shortness of Breath Amitriptyline HCl (Elavil) 75 mg PO [facility] Last Admin: 02/01/18 22:30 Dose: 75 mg Arformoterol Tartrate (Brovana) 15 mcg IH [id number] [facility] Last Admin: 02/02/18 07:19 Dose: Not Given Aspirin (Ecotrin) 81 mg PO DAILY [facility] Last Admin: 02/02/18 12:24 Dose: 81 mg Atorvastatin Calcium (Lipitor) 10 mg PO DIN [facility] Budesonide (Pulmicort Respules) 0.25 mg IH [id number] [facility] Last Admin: 02/02/18 07:19 Dose: Not Given Cholecalciferol (Vitamin D) 2,000 intlu PO [facility] Last Admin: 02/01/18 22:31 Dose: 2,000 intlu Famotidine (Pepcid) 20 mg PO [facility] Last Admin: 02/01/18 22:38 Dose: 20 mg Heparin Sodium (Porcine) (Heparin) 5,000 units SC Q8 [facility]; Protocol Last Admin: 02/02/18 13:15 Dose: 5,000 units Vancomycin HCl (Vancomycin 1gm) 1 gm in 250 mls @ 167 mls/hr IVPB DAILY [facility]; Protocol Last Admin: 02/02/18 12:24 Dose: 167 mls/hr Sodium Chloride (Sodium Chloride 0.9%) 1,000 mls @ 100 mls/hr IV .Q10H [facility] Last Admin: 02/02/18 06:58 Dose: Not Given Meropenem (Merrem Iv 1 Gm Premix) 1 gm in 50 mls @ 100 mls/hr IVPB Q12 [facility]; Pro tocol Last Admin: 02/02/18 12:24 Dose: 100 mls/hr Levothyroxine Sodium (Synthroid) 75 mcg PO ACB [facility] Last Admin: 02/02/18 12:26 Dose: 75 mcg Multivitamins (Thera Tab) 1 tab PO DAILY [facility] Last Admin: 02/02/18 12:24 Dose: 1 tab Ondansetron HCl (Zofran Inj) 4 mg IVP Q6H PRN PRN Reason: Nausea/Vomiting - Labs Labs: 02/02/18 06:30 02/02/18 06:30 PT 12.9 SECONDS (9.4-12.5) H 02/01/18 11:26 INR 1.12 02/01/18 11:26 APTT 16.6 Seconds (25.1-36.5) L 02/01/18 11:26 Assessment and Plan - Assessment and Plan (Free Text) Assessment: This is a 87 year old female with PMH of CHF (diatolic dysfunction), HTN, HLD, raynauds, COPD, cataracts, hypothyroidism, GERD and breast cancer on oral ch emotherapy with metastasis to liver and bone presenting to hospital with generalized weakness and fever for one day. Plan: Sepsis: -consider UTI vs SBP as source -leukopenic -ID on consult -Per ID, continue merrem and vanco (renal dose) -continue fluids -CXR shows no active disease -abd US showed B/L renal cysts, multiple hepatic masses possibly representing metastatic lesions. BRANDON -likely 2/2 pre-renal from poor oral intake and dehydration -continue hydration -Cr is improved today -f/u blood work -follow on FeNa or FeUrea to differentiate pre-renal vs intrinsi Hx of breast cancer -On Ibrance (kinase inhibitor), Xgeva, and Fulvestrant on maintenance -Dx Mar 2016, s/p R mastectomy -mets to liver and bone HTN: -if SBP < 100 hold all BP meds HLD: -continue statin, ASA Hypothyrodism -continue synthroid Neuropathy -continue home elavil PPX with protonix heparin SC HHD Patient seen and case discussed with attending, Dr. Clement <Mona Clement R - Last Filed: 02/04/18 15:46> Objective - Vital Signs/Intake and Output Vital Signs (last 24 hours): Temp Pulse Resp BP Pulse Ox 98.1 F 66 20 149/80 99 02/04/18 07:00 02/04/18 07:00 02/04/18 07:00 02/04/18 07:00 02/04/18 07:00 - Medications Medications: Current Medications Acetaminophen (Tylenol 325mg Tab) 650 mg PO Q4 PRN PRN Reason: Pain, Mild (1-3) Last Admin: 02/04/18 07:18 Dose: 650 mg Albuterol/Ipratropium (Duoneb 3 Mg/0.5 Mg (3 Ml) Ud) 3 ml IH [id number] PRN PRN Reason: Shortness of Breath Amitriptyline HCl (Elavil) 75 mg PO HS [facility] Last Admin: 02/03/18 21:47 Dose: 75 mg Arformoterol Tartrate (Brovana) 15 mcg IH [id number] [facility] Last Admin: 02/04/18 07:13 Dose: 15 mcg Aspirin (Ecotrin) 81 mg PO DAILY [facility] Last Admin: 02/04/18 09:13 Dose: 81 mg Atorvastatin Calcium (Lipitor) 10 mg PO DIN [facility] Last Admin: 02/03/18 17:45 Dose: 10 mg Budesonide (Pulmicort Respules) 0.25 mg IH [id number] [facility] Last Admin: 02/04/18 07:13 Dose: 0.25 mg Cholecalciferol (Vitamin D) 2,000 intlu PO HS [facility] Last Admin: 02/03/18 21:47 Dose: 2,000 intlu Famotidine (Pepcid) 20 mg PO HS [facility] Last Admin: 02/03/18 21:48 Dose: 20 mg Heparin Sodium (Porcine) (Heparin) 5,000 units SC Q8 [facility]; Protocol Last Admin: 02/04/18 14:09 Dose: 5,000 units Vancomycin HCl (Vancomycin 1gm) 1 gm in 250 mls @ 167 mls/hr IVPB DAILY [facility]; Protocol Last Admin: 02/04/18 09:14 Dose: 167 mls/hr Sodium Chloride (Sodium Chloride 0.9%) 1,000 mls @ 100 mls/hr IV .Q10H [facility] Last Admin: 02/04/18 06:58 Dose: 100 mls/hr Meropenem (Merrem Iv 1 Gm Premix) 1 gm in 50 mls @ 100 mls/hr IVPB Q8 [facility]; Protocol Last Admin: 02/04/18 14:09 Dose: 100 mls/hr Levothyroxine Sodium (Synthroid) 75 mcg PO ACB [facility] Last Admin: 02/04/18 09:12 Dose: 75 mcg Metoprolol Succinate (Toprol Xl) 75 mg PO BRK [facility] Last Admin: 02/04/18 09:12 Dose: 75 mg Multivitamins (Thera Tab) 1 tab PO DAILY [facility] Last Admin: 02/04/18 09:13 Dose: 1 tab Ondansetron HCl (Zofran Inj) 4 mg IVP Q6H PRN PRN Reason: Nausea/Vomiting - Labs Labs: 02/04/18 07:00 02/04/18 07:50 PT 12.9 SECONDS (9.4-12.5) H 02/01/18 11:26 INR 1.12 02/01/18 11:26 APTT 16.6 Seconds (25.1-36.5) L 02/01/18 11:26 Attending/Attestation - Attestation I have personally seen and examined this patient.: Yes I have fully participated in the care of the patient.: Yes I have reviewed all pertinent clinical information, including history, physical exam and plan: Yes Notes (Text): Patient seen and examined by me with resident at 1:15PM with resident 02/02/18. Case including HPI, physical exam, and assessment and plan discussed with resident. Agree with above with following additions/corrections. Patient is an 87-year-old female past medical history significant for right breast cancer with metastases to the liver and bone on oral chemotherapy, diastolic CHF, hypertension, hyperlipidemia, Raynaud's, COPD, cataracts, hypothyroidism, falls, and GERD the presented to the emergency room with "body shaking and fever." Berrytent states she is feeling better today. She states rigors and chills have improved. Patient is tolerating liquid diet. Patient denies any chest pain or shortness of breath. No nausea, vomiting, or abdominal pain. No headaches or dizziness. No dysuria. Patient febrile yesterday evening. Physical exam: General: Awake and lying in bed in no acute distress HEENT: Normocephalic, atraumatic. Extraocular muscles intact, pupils equal and reactive, no scleral icterus. Oropharynx is pink and moist. Neck is supple. Cardiovascular: Regular rhythm. Normal S1 and S2. No rubs or gallops appreciated Pulmonary: Normal respiratory effort. No rhonchi, rales, or wheezing appreciated. Gastrointestinal: Soft. Mild distention. Nontender. Positive bowel sounds all 4 quadrants. No guarding. Musculoskeletal: Moves all extremities. No calf tenderness. No CVA tenderness. No edema appreciated Central nervous system: AAO x3, CN 2-12 grossly intact. Dermatologic: Skin warm and dry. Assessment and plan: Patient is an 87-year-old female past medical history significant for right breast cancer with metastases to the liver and bone on oral chemotherapy, diastolic CHF, hypertension, hyperlipidemia, Raynaud's, COPD, cataracts, hypothyroidism, falls, and GERD the presented to the emergency room with "body shaking and fever." 1. Sepsis likely secondary to UTI. Patient with leukopenia, tachypnea, hypotension, and fever. Also with intermittent rigors. Rule out other sources of infection. Patient is distended. No ascites seen on Abdominal ultrasound. Abdominal ultrasound per radiologist showed multiple hepatic masses possible representing metastatic kesion, bilateral renal cysts. ID consulted, recommendations appreciated. Continue on IV fluids. Continue Merrem and vancomycin. Procalcitonin 19.24. Chest x-ray as read by me shows no active disease. Blood culture with no growth to date. Pending urine culture. 2. Pancytopenia. May be secondary to chemo and malignancy vs infection. Continue to monitor. CBC. 3. Hypotension. Secondary to sepsis. Resolved with IV fluids. Continue to monitor. 4. Acute kidney injury. Likely secondary to dehydration. Resolved with IV fluids. Continue to monitor 5. Abdominal pain and nausea. Likely secondary to liver metastases. Abdominal ultrasound as above. Continue liquid diet for now. Advance as tolerated. 6. History of hypertension. Home hydrochlorothiazide and Toprol-XL held secondary to hypotension and sepsis for now. 7. Hyperlipidemia. Patient takes simvastatin at home. Continue with lipitor. 8. COPD. Patient not in acute exacerbation. Continue with Brovana and Pulmicort. 9. History of chronic diastolic CHF. Compensated. Continue to monitor for now. 10. Metastatic breast cancer. Patient is on 3 oral chemotherapy agents. Held for now. Patient follows with oncologist at [facility]. 11. Hypothyroidism. Continue home Synthroid. 12. GI/DVT prophylaxis. Pepcid/Heparin 13. Advanced Directive. Discussed with patient. Patient is a DNR/DNI Case was discussed in detail with the patient regarding current diagnosis and treatment plan. All questions answered.
[2018-02-02] MEDS: Cholecalciferol 1,000 INTLU TAB PO SCH (21:27)
[2018-02-02] MEDS ORDERED: DiphenhydrAMINE 12.5 mg/5 ml LIQ UD (5 ml) PO STA (22:41)
[2018-02-03 06:34] LABS: ALB/GLOB RATIO 1.1 (1.1-1.8); ALT/SGPT 36 U/L (7-56); AST/SGOT 25 U/L (14-36); BLOOD UREA NITROGEN 11 mg/dL (7-21); GFR NON-AFRICAN AMERICAN > 60
[2018-02-03 07:09] LABS: BASO # 0.05 K/mm3 (0.0-2.0); BASO % 2.2 % (0.0-3.0); EOS % 1.8 % (1.5-5.0); GRAN # 1.68 (1.4-6.5); HEMOGLOBIN 9.7 g/dL (12.0-16.0); LYMPH # 0.3 (1.2-3.4); LYMPH % 11.2 % (22.0-35.0); MEAN CELL VOLUME 88.9 fl (80.0-105.0); MEAN CORPUSCULAR HEMOGLOBIN 29.9 pg (25.0-35.0); MEAN CORPUSCULAR HGB CONC 33.7 g/dl (31.0-37.0); MEAN PLATELET VOLUME 9.9 fl (7.0-11.0); MONO # 0.2 (0.1-0.6); MONO % 9.8 % (1.0-6.0); RBC 3.24 10^6/uL (3.5-6.1); RED CELL DISTRIBUTION WIDTH 17.1 % (11.5-14.5); WHITE BLOOD COUNT 2.2 10^3/uL (4.5-11.0)
--- NOTE | 2018-02-03 07:20 | CP.PCM.PN ---
<Christie Reed - Last Filed: 02/03/18 13:31> Subjective - Date & Time of Evaluation Date of Evaluation: 02/03/18 Time of Evaluation: 07:00 - Subjective Subjective: Infectious Disease Progress Note for Meghna Pardo PGY3 Patient seen and examined at bedside. Yesterday patient had fever of 103 and reports feeling it "come on" with chills. She denies any episodes of fever since then. She denies chest pain, shortness of breath, nausea/vomiting/diarrhea, dysuria, hematuria, cough. Objective - Vital Signs/Intake and Output Vital Signs (last 24 hours): Temp Pulse Resp BP Pulse Ox 98.3 F 81 20 128/64 95 02/02/18 20:00 02/02/18 20:00 02/02/18 20:00 02/02/18 20:00 02/02/18 20:00 - Medications Medications: Current Medications Acetaminophen (Tylenol 325mg Tab) 650 mg PO Q4 PRN PRN Reason: Fever >100.4 F Last Admin: 02/02/18 17:16 Dose: 650 mg Albuterol/Ipratropium (Duoneb 3 Mg/0.5 Mg (3 Ml) Ud) 3 ml IH [id number] PRN PRN Reason: Shortness of Breath Amitriptyline HCl (Elavil) 75 mg PO [facility] Last Admin: 02/02/18 21:26 Dose: 75 mg Arformoterol Tartrate (Brovana) 15 mcg IH [id number] [facility] Last Admin: 02/02/18 20:29 Dose: 15 mcg Aspirin (Ecotrin) 81 mg PO DAILY [facility] Last Admin: 02/02/18 12:24 Dose: 81 mg Atorvastatin Calcium (Lipitor) 10 mg PO DIN [facility] Last Admin: 02/02/18 16:58 Dose: 10 mg Budesonide (Pulmicort Respules) 0.25 mg IH [id number] [facility] Last Admin: 02/02/18 20:29 Dose: 0.25 mg Cholecalciferol (Vitamin D) 2,000 intlu PO HS [facility] Last Admin: 02/02/18 21:27 Dose: 2,000 intlu Famotidine (Pepcid) 20 mg PO [facility] Last Admin: 02/02/18 21:27 Dose: 20 mg Heparin Sodium (Porcine) (Heparin) 5,000 units SC Q8 [facility]; Protocol Last Admin: 02/03/18 05:09 Dose: 5,000 units Vancomycin HCl (Vancomycin 1gm) 1 gm in 250 mls @ 167 mls/hr IVPB DAILY [facility]; Protocol Last Admin: 02/02/18 12:24 Dose: 167 mls/hr Sodium Chloride (Sodium Chloride 0.9%) 1,000 mls @ 100 mls/hr IV .Q10H [facility] Last Admin: 02/02/18 21:33 Dose: 100 mls/hr Meropenem (Merrem Iv 1 Gm Premix) 1 gm in 50 mls @ 100 mls/hr IVPB Q12 [facility]; Protocol Last Admin: 02/02/18 21:28 Dose: 100 mls/hr Levothyroxine Sodium (Synthroid) 75 mcg PO ACB [facility] Last Admin: 02/02/18 12:26 Dose: 75 mcg Multivitamins (Thera Tab) 1 tab PO DAILY [facility] Last Admin: 02/02/18 12:24 Dose: 1 tab Ondansetron HCl (Zofran Inj) 4 mg IVP Q6H PRN PRN Reason: Nausea/Vomiting - Labs Labs: 02/03/18 05:30 02/03/18 05:30 PT 12.9 SECONDS (9.4-12.5) H 02/01/18 11:26 INR 1.12 02/01/18 11:26 APTT 16.6 Seconds (25.1-36.5) L 02/01/18 11:26 - Constitutional Appears: No Acute Distress, Younger Than Stated Age - Head Exam Head Exam: ATRAUMATIC, NORMAL INSPECTION, NORMOCEPHALIC - Eye Exam Eye Exam: Normal appearance, PERRL Pupil Exam: NORMAL ACCOMODATION, PERRL - ENT Exam ENT Exam: Mucous Membranes Moist - Respiratory Exam Respiratory Exam: Clear to Ausculation Bilateral - Cardiovascular Exam Cardiovascular Exam: REGULAR RHYTHM, +S1, +S2. absent: Gallop, Rubs, Murmur - GI/Abdominal Exam GI & Abdominal Exam: Soft, Normal Bowel Sounds. absent: Rigid, Tenderness, Mass, Rebound - Extremities Exam Extremities Exam: Normal Inspection. absent: Calf Tenderness, Pedal Edema - Neurological Exam Neurological Exam: Alert, Awake, CN II-XII Intact, Oriented x3 - Psychiatric Exam Psychiatric exam: Normal Affect, Normal Mood - Skin Skin Exam: Dry, Intact, Warm Assessment and Plan - Assessment and Plan (Free Text) Assessment: 1. Severe Sepsis - may be secondary to UTI but will rule out other source versus medication side effect (Faslodex) 2. Breast ca - metastatic to liver and bone - currently on oral chemotherapy 3. CAD 4. CHF 5. COPD 6. Hypothyroid 7. Raynauds Plan: Septic work up pending. Continue Merrem and Vanc day #2. Will order CT chest/abdomen/pelvis to rule out source of infection. Will continue to monitor clinically. Case seen, discussed and reviewed with Dr. Fina Reed PGY3 <Allen Harden - Last Filed: 02/03/18 17:22> Objective - Vital Signs/Intake and Output Vital Signs (last 24 hours): Temp Pulse Resp BP Pulse Ox 97.9 F 100 H 20 152/91 H 94 L 02/03/18 14:00 02/03/18 14:00 02/03/18 14:00 02/03/18 14:00 02/03/18 14:00 - Medications Medications: Current Medications Acetaminophen (Tylenol 325mg Tab) 650 mg PO Q4 PRN PRN Reason: Pain, Mild (1-3) Last Admin: 02/03/18 11:36 Dose: 650 mg Albuterol/Ipratropium (Duoneb 3 Mg/0.5 Mg (3 Ml) Ud) 3 ml IH [id number] PRN PRN Reason: Shortness of Breath Amitriptyline HCl (Elavil) 75 mg PO [facility] Last Admin: 02/02/18 21:26 Dose: 75 mg Arformoterol Tartrate (Brovana) 15 mcg IH [id number] [facility] Last Admin: 02/03/18 07:24 Dose: 15 mcg Aspirin (Ecotrin) 81 mg PO DAILY [facility] Last Admin: 02/03/18 09:30 Dose: 81 mg Atorvastatin Calcium (Lipitor) 10 mg PO DIN [facility] Last Admin: 02/02/18 16:58 Dose: 10 mg Budesonide (Pulmicort Respules) 0.25 mg IH [id number] [facility] Last Admin: 02/03/18 07:23 Dose: 0.25 mg Cholecalciferol (Vitamin D) 2,000 intlu PO [facility] Last Admin: 02/02/18 21:27 Dose: 2,000 intlu Famotidine (Pepcid) 20 mg PO HS [facility] Last Admin: 02/02/18 21:27 Dose: 20 mg Heparin Sodium (Porcine) (Heparin) 5,000 units SC Q8 [facility]; Protocol Last Admin: 02/03/18 13:30 Dose: 5,000 units Vancomycin HCl (Vancomycin 1gm) 1 gm in 250 mls @ 167 mls/hr IVPB DAILY [facility]; Protocol Last Admin: 02/03/18 09:30 Dose: 167 mls/hr Sodium Chloride (Sodium Chloride 0.9%) 1,000 mls @ 100 mls/hr IV .Q10H [facility] Last Admin: 02/02/18 21:33 Dose: 100 mls/hr Meropenem (Merrem Iv 1 Gm Premix) 1 gm in 50 mls @ 100 mls/hr IVPB Q8 [facility]; Protocol Last Admin: 02/03/18 13:31 Dose: 100 mls/hr Levothyroxine Sodium (Synthroid) 75 mcg PO ACB [facility] Last Admin: 02/03/18 08:17 Dose: 75 mcg Metoprolol Succinate (Toprol Xl) 75 mg PO BRK [facility] Multivitamins (Thera Tab) 1 tab PO DAILY [facility] Last Admin: 02/03/18 09:30 Dose: 1 tab Ondansetron HCl (Zofran Inj) 4 mg IVP Q6H PRN PRN Reason: Nausea/Vomiting - Labs Labs: 02/03/18 05:30 02/03/18 05:30 PT 12.9 SECONDS (9.4-12.5) H 02/01/18 11:26 INR 1.12 02/01/18 11:26 APTT 16.6 Seconds (25.1-36.5) L 02/01/18 11:26 Assessment and Plan - Assessment and Plan (Free Text) Plan: Infectious Diseases Attending Physician Attestation Patient seen and examined, discussed with medical receptionist medical assistant. I have reviewed the patient's history of present illness, past medical, family and social histories, personal history, physical exam, lab findings and imaging studies. I agree with the above findings, assessment and plan. In addition, continue Merrem for this patient SIRS, R/O sepsis source to be determined in this patient with breast cancer. Follow up final blood, urine cx, PCT. CXR is negative for infiltrates. Follow up CT A/P . Will continue to monitor clinically.
[2018-02-03] MEDS: Budesonide 0.25 mg/2 ml Inhal Susp UD IH SCH (07:23)
[2018-02-03] MEDS: Arformoterol 15 mcg/2 ml Inh Sol IH SCH ×2 (07:24→20:42)
[2018-02-03] MEDS ORDERED: Barium Sulfate Susp 2.1% w/v, 2.0% w/w 450 mL Bottle PO ONE (07:25)
[2018-02-03] MEDS: Levothyroxine 75 MCG TAB PO SCH (08:17)
[2018-02-03] MEDS: Vancomycin 1gm in NS 250ml 1 GM/250 ML BAG IVPB SCH (09:30)
[2018-02-03] MEDS: Multivitamin Therapeutic Tab PO SCH (09:30)
[2018-02-03] MEDS ORDERED: Iohexol 350 MG/100 ML VIAL ONE (11:20)
[2018-02-03 11:33] LABS: PH,URINE 6.5 (4.7-8.0); URINE BILIRUBIN NEGATIVE (NEGATIVE); URINE BLOOD SMALL (NEGATIVE); URINE GLUCOSE (UA) NEGATIVE (NEGATIVE); URINE LEUKOCYTE ESTERASE SMALL Leu/uL (NEGATIVE); URINE PROTEIN TRACE mg/dL (<30 mg/dL); URINE UROBILINOGEN 0.2 E.U./dL (<1 E.U./dL)
[2018-02-03 11:36] LABS: URINE APPEARANCE CLEAR (CLEAR); URINE COLOR YELLOW (YELLOW)
[2018-02-03 11:38] LABS: URINE AMORPHOUS SEDIMENT FEW; URINE BACTERIA MANY (NEG)
[2018-02-03 12:05] LABS: CREATININE,RANDOM URINE 52 mg/dL
[2018-02-03] MEDS: Meropenem IV 1 gm in NS 1 GM/50 ML BAG IVPB SCH ×2 (13:31→21:48)
--- NOTE | 2018-02-03 14:57 | CT ---
Date of service: 02/03/2018 PROCEDURE: CT Chest, Abdomen and Pelvis with intravenous contrast HISTORY: sepsis r/o source, hx bone/liver mets COMPARISON: Ultrasound 02/01/2018 TECHNIQUE: IV dose administered: 100 cc of Omni 350 Radiation dose: Total exam DLP = 1060.52 mGy-cm. This CT exam was performed using one or more of the following dose reduction techniques: Automated exposure control, adjustment of the mA and/or kV according to patient size, and/or use of iterative reconstruction technique. FINDINGS: CT CHEST WITH CONTRAST: LUNGS: Clear. No nodule, mass or consolidation. MEDIASTINUM: Unremarkable. Normal caliber aorta and pulmonary arterial trunk. No aortic dissection. Normal size heart. LYMPH NODES: Unremarkable. PLEURA: Unremarkable. No pneumothorax. No pleural fluid. BONES: Unremarkable. OTHER FINDINGS: None. CT ABDOMEN AND PELVIS: LIVER: Several hypodense liver lesions are seen suspicious for metastatic disease. There is a 3.4 cm lesion in the posterior right lobe. There is a 2.4 cm lesion in the left lobe near the falciform ligament. There is a 4 cm lesion in the lateral segment of the left lobe. GALLBLADDER AND BILE DUCTS: Removed PANCREAS: Unremarkable. No gross lesion or ductal dilatation. SPLEEN: Unremarkable. ADRENALS: Unremarkable. No mass. KIDNEYS AND URETERS: Unremarkable. No hydronephrosis. No solid mass. Multiple simple cysts are seen in the kidneys VASCULATURE: Aortic calcifications unremarkable. No aortic aneurysm. BOWEL: Unremarkable. No obstruction. No gross mural thickening. APPENDIX: Normal appendix. PERITONEUM: Unremarkable. No free fluid. No free air. LYMPH NODES: Unremarkable. No enlarged lymph nodes. BLADDER: Unremarkable. REPRODUCTIVE: There is a calcified fibroid on the left side of the uterine fundus. BONES: There is a dense sclerotic lesion in the sacrum. This is of uncertain significance. There are no other lesions demonstrated OTHER FINDINGS: None. IMPRESSION: Several hypodense liver lesions are seen suspicious for metastatic disease. There is a 3.4 cm lesion in the posterior right lobe. There is a 2.4 cm lesion in the left lobe near the falciform ligament. There is a 4 cm lesion in the lateral segment of the left lobe.
--- NOTE | 2018-02-03 16:29 | CP.PCM.PN ---
<Kailey Lowry - Last Filed: 02/03/18 16:47> Subjective - Date & Time of Evaluation Date of Evaluation: 02/03/18 Time of Evaluation: 11:30 - Subjective Subjective: Kailey Lowry PGY1 Medicine Progress note Patient seen and examined at bedside. No acute events overnight. States she feels much better today and offers no new complaints at this time. Denies nausea, vomiting, chills, fevers, CP, SOB, urinary complaints, numbness, tingling and swelling. Objective - Vital Signs/Intake and Output Vital Signs (last 24 hours): Temp Pulse Resp BP Pulse Ox 97.9 F 100 H 20 152/91 H 94 L 02/03/18 14:00 02/03/18 14:00 02/03/18 14:00 02/03/18 14:00 02/03/18 14:00 - Medications Medications: Current Medications Acetaminophen (Tylenol 325mg Tab) 650 mg PO Q4 PRN PRN Reason: Pain, Mild (1-3) Last Admin: 02/03/18 11:36 Dose: 650 mg Albuterol/Ipratropium (Duoneb 3 Mg/0.5 Mg (3 Ml) Ud) 3 ml IH [id number] PRN PRN Reason: Shortness of Breath Amitriptyline HCl (Elavil) 75 mg PO [facility] Last Admin: 02/02/18 21:26 Dose: 75 mg Arformoterol Tartrate (Brovana) 15 mcg IH [id number] ON LICENSE OF [facility] Last Admin: 02/03/18 07:24 Dose: 15 mcg Aspirin (Ecotrin) 81 mg PO DAILY ON LICENSE OF [facility] Last Admin: 02/03/18 09:30 Dose: 81 mg Atorvastatin Calcium (Lipitor) 10 mg PO DIN ON LICENSE OF [facility] Last Admin: 02/02/18 16:58 Dose: 10 mg Budesonide (Pulmicort Respules) 0.25 mg IH [id number] ON LICENSE OF [facility] Last Admin: 02/03/18 07:23 Dose: 0.25 mg Cholecalciferol (Vitamin D) 2,000 intlu PO [facility] Last Admin: 02/02/18 21:27 Dose: 2,000 intlu Famotidine (Pepcid) 20 mg PO [facility] Last Admin: 02/02/18 21:27 Dose: 20 mg Heparin Sodium (Porcine) (Heparin) 5,000 units SC Q8 [facility]; Protocol Last Admin: 02/03/18 13:30 Dose: 5,000 units Vancomycin HCl (Vancomycin 1gm) 1 gm in 250 mls @ 167 mls/hr IVPB DAILY [facility]; Protocol Last Admin: 02/03/18 09:30 Dose: 167 mls/hr Sodium Chloride (Sodium Chloride 0.9%) 1,000 mls @ 100 mls/hr IV .Q10H [facility] Last Admin: 02/02/18 21:33 Dose: 100 mls/hr Meropenem (Merrem Iv 1 Gm Premix) 1 gm in 50 mls @ 100 mls/hr IVPB Q8 [facility]; Protocol Last Admin: 02/03/18 13:31 Dose: 100 mls/hr Levothyroxine Sodium (Synthroid) 75 mcg PO ACB [facility] Last Admin: 02/03/18 08:17 Dose: 75 mcg Multivitamins (Thera Tab) 1 tab PO DAILY [facility] Last Admin: 02/03/18 09:30 Dose: 1 tab Ondansetron HCl (Zofran Inj) 4 mg IVP Q6H PRN PRN Reason: Nausea/Vomiting - Labs Labs: 02/03/18 05:30 02/03/18 05:30 PT 12.9 SECONDS (9.4-12.5) H 02/01/18 11:26 INR 1.12 02/01/18 11:26 APTT 16.6 Seconds (25.1-36.5) L 02/01/18 11:26 - Constitutional Appears: No Acute Distress - Head Exam Head Exam: ATRAUMATIC, NORMAL INSPECTION - Eye Exam Eye Exam: EOMI Pupil Exam: PERRL - ENT Exam ENT Exam: Mucous Membranes Moist - Respiratory Exam Respiratory Exam: Clear to Ausculation Bilateral. absent: Accessory Muscle Use, Respiratory Distress - Cardiovascular Exam Cardiovascular Exam: REGULAR RHYTHM, +S1, +S2 - GI/Abdominal Exam GI & Abdominal Exam: Normal Bowel Sounds. absent: Guarding, Rigid - Extremities Exam Extremities Exam: Normal Inspection. absent: Calf Tenderness - Neurological Exam Neurological Exam: Alert, Oriented x3 - Skin Skin Exam: Normal Color, Warm Assessment and Plan - Assessment and Plan (Free Text) Assessment: This is a 87 year old female with PMH of CHF (diatolic dysfunction), HTN, HLD, raynauds, COPD, cataracts, hypothyroidism, GERD and breast cancer on oral chemotherapy with metastasis to liver and bone presenting to hospital with generalized weakness and fever for one day. Plan: Sepsis: -consider UTI vs SBP as source -CT abd/pelvis showes several hypodense liver lesions suspicious for metastatic disease -abd US showed B/L renal cysts, multiple hepatic masses possibly representing metastatic lesions. -CXR shows no active disease -WBC is downtrending, will consider heme/onc consult -ID on consult, continue merrem and vanco, currently on day 2. Will get vanc trough one hour before 4th dose -continue fluids -procalc is 19 BRANDON -likely 2/2 pre-renal from poor oral intake and dehydration -continue hydration -urine culture resent today, previous was contaminated -Cr is 0.8 today -f/u blood work -follow on FeNa or FeUrea to differentiate pre-renal vs intrinsic Hx of breast cancer -On Ibrance (kinase inhibitor), Xgeva, and Fulvestrant on maintenance -Dx Mar 2016, s/p R mastectomy -mets to liver and bone Hx of COPD: -continue chavo byrne HTN: -continue home metoprolol 75mg -if SBP < 110, HR < 60, hold BP meds HLD: -continue statin, ASA Hypothyrodism -continue synthroid Neuropathy -continue home elavil PPX with pepcid and heparin SC HHD Patient seen and case discussed with attending, Dr. Clement <Mona Clement R - Last Filed: 02/04/18 16:03> Objective - Vital Signs/Intake and Output Vital Signs (last 24 hours): Temp Pulse Resp BP Pulse Ox 98.1 F 66 20 149/80 99 02/04/18 07:00 02/04/18 07:00 02/04/18 07:00 02/04/18 07:00 02/04/18 07:00 - Medications Medications: Current Medications Acetaminophen (Tylenol 325mg Tab) 650 mg PO Q4 PRN PRN Reason: Pain, Mild (1-3) Last Admin: 02/04/18 07:18 Dose: 650 mg Albuterol/Ipratropium (Duoneb 3 Mg/0.5 Mg (3 Ml) Ud) 3 ml IH [id number] PRN PRN Reason: Shortness of Breath Amitriptyline HCl (Elavil) 75 mg PO HS ON [facility] OF [facility] Last Admin: 02/03/18 21:47 Dose: 75 mg Arformoterol Tartrate (Brovana) 15 mcg IH [id number] ON LICENSE OF [facility] Last Admin: 02/04/18 07:13 Dose: 15 mcg Aspirin (Ecotrin) 81 mg PO DAILY [facility] Last Admin: 02/04/18 09:13 Dose: 81 mg Atorvastatin Calcium (Lipitor) 10 mg PO DIN ON [facility] OF [facility] Last Admin: 02/03/18 17:45 Dose: 10 mg Budesonide (Pulmicort Respules) 0.25 mg IH [id number] ON LICENSE OF [facility] Last Admin: 02/04/18 07:13 Dose: 0.25 mg Cholecalciferol (Vitamin D) 2,000 intlu PO HS ON [facility] OF [facility] Last Admin: 02/03/18 21:47 Dose: 2,000 intlu Famotidine (Pepcid) 20 mg PO HS ON [facility] OF [facility] Last Admin: 02/03/18 21:48 Dose: 20 mg Heparin Sodium (Porcine) (Heparin) 5,000 units SC Q8 ON LICENSE OF [facility]; Protocol Last Admin: 02/04/18 14:09 Dose: 5,000 units Vancomycin HCl (Vancomycin 1gm) 1 gm in 250 mls @ 167 mls/hr IVPB DAILY ON LICENSE OF [facility]; Protocol Last Admin: 02/04/18 09:14 Dose: 167 mls/hr Sodium Chloride (Sodium Chloride 0.9%) 1,000 mls @ 100 mls/hr IV .Q10H [facility] Last Admin: 02/04/18 06:58 Dose: 100 mls/hr Meropenem (Merrem Iv 1 Gm Premix) 1 gm in 50 mls @ 100 mls/hr IVPB Q8 ON LICENSE OF [facility]; Protocol Last Admin: 02/04/18 14:09 Dose: 100 mls/hr Levothyroxine Sodium (Synthroid) 75 mcg PO ACB ON LICENSE OF [facility] Last Admin: 02/04/18 09:12 Dose: 75 mcg Metoprolol Succinate (Toprol Xl) 75 mg PO BRK ON LICENSE OF [facility] Last Admin: 02/04/18 09:12 Dose: 75 mg Multivitamins (Thera Tab) 1 tab PO DAILY ON [facility] OF [facility] Last Admin: 02/04/18 09:13 Dose: 1 tab Ondansetron HCl (Zofran Inj) 4 mg IVP Q6H PRN PRN Reason: Nausea/Vomiting - Labs Labs: 02/04/18 07:00 02/04/18 07:50 PT 12.9 SECONDS (9.4-12.5) H 02/01/18 11: INR 1.12 02/01/18 11: APTT 16.6 Seconds (25.1-36.5) L 02/01/18 11:26 Attending/Attestation - Attestation I have personally seen and examined this patient.: Yes I have fully participated in the care of the patient.: Yes I have reviewed all pertinent clinical information, including history, physical exam and plan: Yes Notes (Text): Patient seen and examined by me with resident at 12:50PM with resident 02/03/18. Case including HPI, physical exam, and assessment and plan discussed with resident. Agree with above with following additions/corrections. Patient is an 87-year-old female past medical history significant for right breast cancer with metastases to the liver and bone on oral chemotherapy, diast olic CHF, hypertension, hyperlipidemia, Raynaud's, COPD, cataracts, hypothyroidism, falls, and GERD the presented to the emergency room with "body shaking and fever." Paitent states she is feeling ok. Patient's brother at bedside. Patient febrile yesterday evening with temp of 103. Patient states she had rigor at that time but they were improved. Patient is tolerating liquid diet but does not like the food. Patient states she is unable to taste any food. This is likely secondary to her chemo. Patient denies any chest pain or palpitations. Patient states she is feeling a little short of breath. No nausea, vomiting, or abdominal pain. No headaches or dizziness. No dysuria. Physical exam: General: Awake and lying in bed in no acute distress HEENT: Normocephalic, atraumatic. Extraocular muscles intact, pupils equal and reactive, no scleral icterus. Oropharynx is pink and moist. Neck is supple. Cardiovascular: Regular rhythm. Normal S1 and S2. No rubs or gallops appreciated Pulmonary: Normal respiratory effort. No rhonchi, rales, or wheezing appreciated. Gastrointestinal: Soft. Mild distention. Nontender. Positive bowel sounds all 4 quadrants. No guarding. Musculoskeletal: Moves all extremities. No calf tenderness. No CVA tenderness. No edema appreciated Central nervous system: AAO x3, CN 2-12 grossly intact. Dermatologic: Skin warm and dry. Assessment and plan: Patient is an 87-year-old female past medical history significant for right breast cancer with metastases to the liver and bone on oral chemotherapy, diastolic CHF, hypertension, hyperlipidemia, Raynaud's, COPD, cataracts, hypothyroidism, falls, and GERD the presented to the emergency room with "body shaking and fever." 1. Sepsis likely secondary to UTI. Still with fevers and chills. Leukopenia worsening. No ascites seen on abdominal ultrasound. Abdominal ultrasound per radiologist showed multiple hepatic masses possible representing metastatic kesion, bilateral renal cysts. ID consulted, recommendations appreciated. Continue on IV fluids. Continue Merrem and vancomycin. CT chest/abd/pelvis ordered. Procalcitonin 19.24. Chest x-ray per radiologist showed no active disease. Blood culture with no growth to date. Pending urine culture. 2. Pancytopenia. May be secondary to chemo and malignancy vs infection. Worsening. If continues to worsen, will need to consult hem/onc. Continue to monitor CBC. 3. Hypotension. Secondary to sepsis. Resolved with IV fluids. Continue to monitor. 4. Acute kidney injury. Likely secondary to dehydration. Resolved with IV fluids. Continue to monitor 5. Abdominal pain and nausea. Resolved. Likely secondary to liver metastases. Abdominal ultrasound as above. Continue liquid diet for now. Advance as tolerated. 6. History of hypertension. Home hydrochlorothiazide and Toprol-XL held secondary to hypotension and sepsis for now. 7. Hyperlipidemia. Patient takes simvastatin at home. Continue with lipitor. 8. COPD. Patient not in acute exacerbation. Continue with Brovana and Pulmicort. 9. History of chronic diastolic CHF. Compensated. Continue to monitor for now. 10. Metastatic breast cancer. Patient is on 3 oral chemotherapy agents. Held for now. Patient follows with oncologist at [place]. 11. Hypothyroidism. Continue home Synthroid. 12. GI/DVT prophylaxis. Pepcid/Heparin 13. Advanced Directive. Discussed with patient. Patient is a DNR/DNI Case was discussed in detail with the patient regarding current diagnosis and treatment plan. All questions answered.
[2018-02-03] MEDS ORDERED: Metoprolol Succinate 50 mg XL Tab PO SCH (17:00)
[2018-02-03] MEDS: Metoprolol Succinate 50 mg XL Tab PO SCH (17:45)
[2018-02-03] MEDS: Cholecalciferol 1,000 INTLU TAB PO SCH (21:47)
[2018-02-03] MEDS ORDERED: DiphenhydrAMINE 12.5 mg/5 ml LIQ UD (5 ml) PO STA (22:36)
[2018-02-04] MEDS: Meropenem IV 1 gm in NS 1 GM/50 ML BAG IVPB SCH ×3 (05:40→21:43)
--- NOTE | 2018-02-04 06:53 | CP.PCM.PN ---
Objective - Vital Signs/Intake and Output Vital Signs (last 24 hours): Temp Pulse Resp BP Pulse Ox 99.8 F H 91 H 20 155/74 H 93 L 02/04/18 06:31 02/03/18 22:00 02/03/18 22:00 02/03/18 22:00 02/03/18 22:00 - Medications Medications: Current Medications Acetaminophen (Tylenol 325mg Tab) 650 mg PO Q4 PRN PRN Reason: Pain, Mild (1-3) Last Admin: 02/03/18 21:47 Dose: 650 mg Albuterol/Ipratropium (Duoneb 3 Mg/0.5 Mg (3 Ml) Ud) 3 ml IH [id number] PRN PRN Reason: Shortness of Breath Amitriptyline HCl (Elavil) 75 mg PO HS [facility] Last Admin: 02/03/18 21:47 Dose: 75 mg Arformoterol Tartrate (Brovana) 15 mcg IH [id number] COUNT INCLUDES THE [facility] Last Admin: 02/03/18 20:42 Dose: 15 mcg Aspirin (Ecotrin) 81 mg PO DAILY COUNT [facility]CLUD[facility] Last Admin: 02/03/18 09:30 Dose: 81 mg Atorvastatin Calcium (Lipitor) 10 mg PO DIN [facility]CLUD[facility] Last Admin: 02/03/18 17:45 Dose: 10 mg Budesonide (Pulmicort Respules) 0.25 mg IH [id number] COUNT INCLUDES THE [facility] Last Admin: 02/03/18 07:23 Dose: 0.25 mg Cholecalciferol (Vitamin D) 2,000 intlu PO HS COUNT [facility]CLUD[facility] Last Admin: 02/03/18 21:47 Dose: 2,000 intlu Famotidine (Pepcid) 20 mg PO HS [facility] Last Admin: 02/03/18 21:48 Dose: 20 mg Heparin Sodium (Porcine) (Heparin) 5,000 units SC Q8 COUNT [facility]CLUDES THE [facility]; Protocol Last Admin: 02/04/18 05:40 Dose: 5,000 units Vancomycin HCl (Vancomycin 1gm) 1 gm in 250 mls @ 167 mls/hr IVPB DAILY [facility]CLUD[facility]; Protocol Last Admin: 02/03/18 09:30 Dose: 167 mls/hr Sodium Chloride (Sodium Chloride 0.9%) 1,000 mls @ 100 mls/hr IV .Q10H COUNT INCLUDES THE [facility] Last Admin: 02/02/18 21:33 Dose: 100 mls/hr Meropenem (Merrem Iv 1 Gm Premix) 1 gm in 50 mls @ 100 mls/hr IVPB Q8 COUNT [facility]CLUDES [facility]; Protocol Last Admin: 02/04/18 05:40 Dose: 100 mls/hr Levothyroxine Sodium (Synthroid) 75 mcg PO ACB COUNT [facility]CLUDES THE [facility] Last Admin: 02/03/18 08:17 Dose: 75 mcg Metoprolol Succinate (Toprol Xl) 75 mg PO BRK COUNT [facility]CLUDES [facility] Last Admin: 02/03/18 17:45 Dose: 75 mg Multivitamins (Thera Tab) 1 tab PO DAILY [facility]CLUD[facility] Last Admin: 02/03/18 09:30 Dose: 1 tab Ondansetron HCl (Zofran Inj) 4 mg IVP Q6H PRN PRN Reason: Nausea/Vomiting - Labs Labs: 02/03/18 05:30 02/03/18 05:30 PT 12.9 SECONDS (9.4-12.5) H 02/01/18 11:26 INR 1.12 02/01/18 11:26 APTT 16.6 Seconds (25.1-36.5) L 02/01/18 11:26
--- NOTE | 2018-02-04 06:54 | CP.PCM.PN ---
<Christie Reed - Last Filed: 02/04/18 12:11> Subjective - Date & Time of Evaluation Date of Evaluation: 02/04/18 Time of Evaluation: 07:00 - Subjective Subjective: Infectious Disease Progress Note for Meghna Pardo PGY3 Patient seen and examined at bedside. Patient is continuing to have fevers. She states she feels them coming on with rigors at the same time. She denies cough, chest pain, shortness of breath, vision changes, nausea/vomiting/diarrhea, abdominal pain, dysuria, hematuria. Objective - Vital Signs/Intake and Output Vital Signs (last 24 hours): Temp Pulse Resp BP Pulse Ox 99.8 F H 91 H 20 155/74 H 93 L 02/04/18 06:31 02/03/18 22:00 02/03/18 22:00 02/03/18 22:00 02/03/18 22:00 - Medications Medications: Current Medications Acetaminophen (Tylenol 325mg Tab) 650 mg PO Q4 PRN PRN Reason: Pain, Mild (1-3) Last Admin: 02/03/18 21:47 Dose: 650 mg Albuterol/Ipratropium (Duoneb 3 Mg/0.5 Mg (3 Ml) Ud) 3 ml IH [id number] PRN PRN Reason: Shortness of Breath Amitriptyline HCl (Elavil) 75 mg PO HS [facility] Last Admin: 02/03/18 21:47 Dose: 75 mg Arformoterol Tartrate (Brovana) 15 mcg IH [id number] [facility] Last Admin: 02/03/18 20:42 Dose: 15 mcg Aspirin (Ecotrin) 81 mg PO DAILY [facility] Last Admin: 02/03/18 09:30 Dose: 81 mg Atorvastatin Calcium (Lipitor) 10 mg PO DIN [facility] Last Admin: 02/03/18 17:45 Dose: 10 mg Budesonide (Pulmicort Respules) 0.25 mg IH [id number] [facility] Last Admin: 02/03/18 07:23 Dose: 0.25 mg Cholecalciferol (Vitamin D) 2,000 intlu PO HS [facility] Last Admin: 02/03/18 21:47 Dose: 2,000 intlu Famotidine (Pepcid) 20 mg PO [facility] Last Admin: 02/03/18 21:48 Dose: 20 mg Heparin Sodium (Porcine) (Heparin) 5,000 units SC Q8 [facility]; Protocol Last Admin: 02/04/18 05:40 Dose: 5,000 units Vancomycin HCl (Vancomycin 1gm) 1 gm in 250 mls @ 167 mls/hr IVPB DAILY [facility]; Protocol Last Admin: 02/03/18 09:30 Dose: 167 mls/hr Sodium Chloride (Sodium Chloride 0.9%) 1,000 mls @ 100 mls/hr IV .Q10H [facility] Last Admin: 02/02/18 21:33 Dose: 100 mls/hr Meropenem (Merrem Iv 1 Gm Premix) 1 gm in 50 mls @ 100 mls/hr IVPB Q8 [facility]; Protocol Last Admin: 02/04/18 05:40 Dose: 100 mls/hr Levothyroxine Sodium (Synthroid) 75 mcg PO ACB [facility] Last Admin: 02/03/18 08:17 Dose: 75 mcg Metoprolol Succinate (Toprol Xl) 75 mg PO BRK [facility] Last Admin: 02/03/18 17:45 Dose: 75 mg Multivitamins (Thera Tab) 1 tab PO DAILY [facility] Last Admin: 02/03/18 09:30 Dose: 1 tab Ondansetron HCl (Zofran Inj) 4 mg IVP Q6H PRN PRN Reason: Nausea/Vomiting - Labs Labs: 02/03/18 05:30 02/03/18 05:30 PT 12.9 SECONDS (9.4-12.5) H 02/01/18 11:26 INR 1.12 02/01/18 11:26 APTT 16.6 Seconds (25.1-36.5) L 02/01/18 11:26 - Constitutional Appears: No Acute Distress - Head Exam Head Exam: ATRAUMATIC, NORMAL INSPECTION, NORMOCEPHALIC - Eye Exam Eye Exam: Normal appearance, PERRL Pupil Exam: NORMAL ACCOMODATION, PERRL - ENT Exam ENT Exam: Mucous Membranes Moist - Respiratory Exam Respiratory Exam: Clear to Ausculation Bilateral, NORMAL BREATHING PATTERN. absent: Rales, Rhonchi, Wheezes - Cardiovascular Exam Cardiovascular Exam: REGULAR RHYTHM, +S1, +S2. absent: Gallop, Rubs, Murmur - GI/Abdominal Exam GI & Abdominal Exam: Soft, Normal Bowel Sounds. absent: Rigid, Tenderness, Mass, Rebound - Extremities Exam Extremities Exam: Normal Capillary Refill, Normal Inspection. absent: Calf Tenderness, Pedal Edema - Neurological Exam Neurological Exam: Alert, Awake, CN II-XII Intact, Normal Gait, Oriented x3 - Psychiatric Exam Psychiatric exam: Normal Affect, Normal Mood - Skin Skin Exam: Dry, Intact, Normal Color, Warm Assessment and Plan - Assessment and Plan (Free Text) Assessment: 1. Severe Sepsis - may be secondary to UTI but will rule out other source versus medication side effect (Faslodex) 2. Breast ca - metastatic to liver and bone - currently on oral chemotherapy 3. Small frontal meningioma seen on previous MRI 4. CAD 5. CHF 6. COPD 7. Hypothyroid 8. Raynauds Plan: Labs and imaging reviewed. CT chest/A/P did not show any evidence of source of fevers at this time. Will check brain MRI to rule out any source of infection. Repeat septic work up pending. Will check CMV and cryptococcus. Will check vanc trough 1 hr before 4th dose given. Will keep vancomycin dosage the same for now since patient has had IV contrast. Will increase to q12 if kidney function remains stable tomorrow. Hematology is on consult. Will continue to monitor clinically. Case seen, discussed and reviewed with Dr. Harden. Meghna Reed PGY3 <Allen Harden - Last Filed: 02/04/18 12:51> Objective - Vital Signs/Intake and Output Vital Signs (last 24 hours): Temp Pulse Resp BP Pulse Ox 98.1 F 66 20 149/80 99 02/04/18 07:00 02/04/18 07:00 02/04/18 07:00 02/04/18 07:00 02/04/18 07:00 - Medications Medications: Current Medications Acetaminophen (Tylenol 325mg Tab) 650 mg PO Q4 PRN PRN Reason: Pain, Mild (1-3) Last Admin: 02/04/18 07:18 Dose: 650 mg Albuterol/Ipratropium (Duoneb 3 Mg/0.5 Mg (3 Ml) Ud) 3 ml IH [id number] PRN PRN Reason: Shortness of Breath Amitriptyline HCl (Elavil) 75 mg PO HS [facility] Last Admin: 02/03/18 21:47 Dose: 75 mg Arformoterol Tartrate (Brovana) 15 mcg IH [id number] [facility] Last Admin: 02/04/18 07:13 Dose: 15 mcg Aspirin (Ecotrin) 81 mg PO DAILY [facility] Last Admin: 02/04/18 09:13 Dose: 81 mg Atorvastatin Calcium (Lipitor) 10 mg PO DIN [facility] Last Admin: 02/03/18 17:45 Dose: 10 mg Budesonide (Pulmicort Respules) 0.25 mg IH [id number] [facility] Last Admin: 02/04/18 07:13 Dose: 0.25 mg Cholecalciferol (Vitamin D) 2,000 intlu PO HS [facility] Last Admin: 02/03/18 21:47 Dose: 2,000 intlu Famotidine (Pepcid) 20 mg PO HS [facility] Last Admin: 02/03/18 21:48 Dose: 20 mg Heparin Sodium (Porcine) (Heparin) 5,000 units SC Q8 [facility]; Protocol Last Admin: 02/04/18 05:40 Dose: 5,000 units Vancomycin HCl (Vancomycin 1gm) 1 gm in 250 mls @ 167 mls/hr IVPB DAILY [facility]; Protocol Last Admin: 02/04/18 09:14 Dose: 167 mls/hr Sodium Chloride (Sodium Chloride 0.9%) 1,000 mls @ 100 mls/hr IV .Q10H [facility] Last Admin: 02/04/18 06:58 Dose: 100 mls/hr Meropenem (Merrem Iv 1 Gm Premix) 1 gm in 50 mls @ 100 mls/hr IVPB Q8 [facility]; Protocol Last Admin: 02/04/18 05:40 Dose: 100 mls/hr Levothyroxine Sodium (Synthroid) 75 mcg PO ACB [facility] Last Admin: 02/04/18 09:12 Dose: 75 mcg Metoprolol Succinate (Toprol Xl) 75 mg PO BRK [facility] Last Admin: 02/04/18 09:12 Dose: 75 mg Multivitamins (Thera Tab) 1 tab PO DAILY [facility] Last Admin: 02/04/18 09:13 Dose: 1 tab Ondansetron HCl (Zofran Inj) 4 mg IVP Q6H PRN PRN Reason: Nausea/Vomiting - Labs Labs: 02/04/18 07:00 02/04/18 07:50 PT 12.9 SECONDS (9.4-12.5) H 02/01/18 11:26 INR 1.12 02/01/18 11:26 APTT 16.6 Seconds (25.1-36.5) L 02/01/18 11:26 Assessment and Plan - Assessment and Plan (Free Text) Plan: Infectious Diseases Attending Physician Attestation Patient seen and examined, discussed with medical policy specialist. I have reviewed the patient's history of present illness, past medical, family and social histories, personal history, physical exam, lab findings and imaging studies. I agree with the above findings, assessment and plan. In addition, continue Merrem for this patient SIRS, R/O sepsis source to be determined in this patient with breast cancer. Will repeat cultures since patient still has fevers. CXR is negative for infiltrates. CT A/P is showing metastatic liver lesions. Will also get MRI brain. Follow up Heme/Onc evaluation. Will continue to monitor clinically. We are now becoming suspicious for fevers due to malignancy.
[2018-02-04] MEDS: Sodium Chloride 0.9% 1,000 ML IV SCH ×2 (06:58→23:09)
[2018-02-04] MEDS: Arformoterol 15 mcg/2 ml Inh Sol IH SCH ×2 (07:13→21:20)
[2018-02-04] MEDS: Budesonide 0.25 mg/2 ml Inhal Susp UD IH SCH ×2 (07:13→21:20)
[2018-02-04 07:43] LABS: BASO # 0.02 K/mm3 (0.0-2.0); BASO % 1.1 % (0.0-3.0); EOS % 2.3 % (1.5-5.0); GRAN # 1.07 (1.4-6.5); GRAN % 61.2 % (50.0-68.0); HEMOGLOBIN 9.8 g/dL (12.0-16.0); LYMPH # 0.3 (1.2-3.4); LYMPH % 18.3 % (22.0-35.0); MEAN CELL VOLUME 88.7 fl (80.0-105.0); MEAN CORPUSCULAR HEMOGLOBIN 30.1 pg (25.0-35.0); MEAN CORPUSCULAR HGB CONC 33.9 g/dl (31.0-37.0); MEAN PLATELET VOLUME 9.5 fl (7.0-11.0); MONO # 0.3 (0.1-0.6); MONO % 17.1 % (1.0-6.0); PLATELET COUNT 112 10^3/uL (120.0-450.0); RBC 3.26 10^6/uL (3.5-6.1); RED CELL DISTRIBUTION WIDTH 17.2 % (11.5-14.5)
[2018-02-04 07:47] LABS: WHITE BLOOD COUNT 1.8 10^3/uL (4.5-11.0)
[2018-02-04 08:15] LABS: BAND 1 % (0-2); BASOPHIL 6 % (0.0-1.0); EOSINOPHIL 1 % (0.0-3.0); LYMPHOCYTE 23 % (22.0-35.0); MONOCYTE 11 % (1.0-6.0); NEUTROPHIL 58 % (50.0-70.0)
[2018-02-04 08:16] LABS: PLATELET ESTIMATE LOW (NORMAL)
[2018-02-04 08:36] LABS: ALB/GLOB RATIO 1.2 (1.1-1.8); ALBUMIN 3.1 g/dL (3.0-4.8); ALT/SGPT 42 U/L (7-56); AST/SGOT 22 U/L (14-36); BLOOD UREA NITROGEN 7 mg/dL (7-21); CALCIUM 8.6 mg/dL (8.4-10.5); GFR NON-AFRICAN AMERICAN > 60
[2018-02-04] MEDS: Levothyroxine 75 MCG TAB PO SCH (09:12)
[2018-02-04] MEDS: Metoprolol Succinate 50 mg XL Tab PO SCH (09:12)
[2018-02-04] MEDS: Multivitamin Therapeutic Tab PO SCH (09:13)
[2018-02-04] MEDS: Vancomycin 1gm in NS 250ml 1 GM/250 ML BAG IVPB SCH (09:14)
--- NOTE | 2018-02-04 16:53 | CP.PCM.PN ---
<Kailey Lowry - Last Filed: 02/04/18 16:48> Subjective - Date & Time of Evaluation Date of Evaluation: 02/04/18 Time of Evaluation: 10:00 - Subjective Subjective: Kailey Lowry PGY1 Medicine Progress note Patient seen and examined at bedside. Spiked a fever of 102 yesterday. No new complaints offered at this time. Slept well with benadryl and tolerating diet well. Denies nausea, vomiting, chills, fevers, CP, SOB, urinary complaints, numbness, tingling and swelling. Objective - Vital Signs/Intake and Output Vital Signs (last 24 hours): Temp Pulse Resp BP Pulse Ox 98.1 F 66 20 149/80 99 02/04/18 07:00 02/04/18 07:00 02/04/18 07:00 02/04/18 07:00 02/04/18 07:00 - Medications Medications: Current Medications Acetaminophen (Tylenol 325mg Tab) 650 mg PO Q4 PRN PRN Reason: Pain, Mild (1-3) Last Admin: 02/04/18 07:18 Dose: 650 mg Albuterol/Ipratropium (Duoneb 3 Mg/0.5 Mg (3 Ml) Ud) 3 ml IH [id number] PRN PRN Reason: Shortness of Breath Amitriptyline HCl (Elavil) 75 mg PO [facility] Last Admin: 02/03/18 21:47 Dose: 75 mg Arformoterol Tartrate (Brovana) 15 mcg IH [id number] [facility] Last Admin: 02/04/18 07:13 Dose: 15 mcg Aspirin (Ecotrin) 81 mg PO DAILY [facility] Last Admin: 02/04/18 09:13 Dose: 81 mg Atorvastatin Calcium (Lipitor) 10 mg PO DIN [facility] Last Admin: 02/03/18 17:45 Dose: 10 mg Budesonide (Pulmicort Respules) 0.25 mg IH [id number] [facility] Last Admin: 02/04/18 07:13 Dose: 0.25 mg Cholecalciferol (Vitamin D) 2,000 intlu PO [facility] Last Admin: 02/03/18 21:47 Dose: 2,000 intlu Famotidine (Pepcid) 20 mg PO [facility] Last Admin: 02/03/18 21:48 Dose: 20 mg Heparin Sodium (Porcine) (Heparin) 5,000 units SC Q8 [facility]; Protocol Last Admin: 02/04/18 14:09 Dose: 5,000 units Sodium Chloride (Sodium Chloride 0.9%) 1,000 mls @ 100 mls/hr IV .Q10H [facility] Last Admin: 02/04/18 06:58 Dose: 100 mls/hr Meropenem (Merrem Iv 1 Gm Premix) 1 gm in 50 mls @ 100 mls/hr IVPB Q8 [facility]; Pr otocol Last Admin: 02/04/18 14:09 Dose: 100 mls/hr Levothyroxine Sodium (Synthroid) 75 mcg PO ACB [facility] Last Admin: 02/04/18 09:12 Dose: 75 mcg Metoprolol Succinate (Toprol Xl) 75 mg PO BRK [facility] Last Admin: 02/04/18 09:12 Dose: 75 mg Multivitamins (Thera Tab) 1 tab PO DAILY [facility] Last Admin: 02/04/18 09:13 Dose: 1 tab Ondansetron HCl (Zofran Inj) 4 mg IVP Q6H PRN PRN Reason: Nausea/Vomiting - Labs Labs: 02/04/18 07:00 02/04/18 07:50 PT 12.9 SECONDS (9.4-12.5) H 02/01/18 11:26 INR 1.12 02/01/18 11:26 APTT 16.6 Seconds (25.1-36.5) L 02/01/18 11:26 - Constitutional Appears: No Acute Distress - Head Exam Head Exam: ATRAUMATIC, NORMAL INSPECTION - Eye Exam Eye Exam: EOMI Pupil Exam: PERRL - ENT Exam ENT Exam: Mucous Membranes Moist - Respiratory Exam Respiratory Exam: Clear to Ausculation Bilateral. absent: Accessory Muscle Use, Wheezes - Cardiovascular Exam Cardiovascular Exam: REGULAR RHYTHM, +S1, +S2 - GI/Abdominal Exam GI & Abdominal Exam: Normal Bowel Sounds. absent: Guarding, Rigid - Extremities Exam Extremities Exam: Normal Inspection. absent: Calf Tenderness - Neurological Exam Neurological Exam: Alert, Oriented x3 - Skin Skin Exam: Normal Color, Warm Assessment and Plan - Assessment and Plan (Free Text) Assessment: This is a 87 year old female with PMH of CHF (diatolic dysfunction), HTN, HLD, raynauds, COPD, cataracts, hypothyroidism, GERD and breast cancer on oral chemotherapy with metastasis to liver and bone presenting to hospital with generalized weakness and fever for one day. Plan: Sepsis: -consider UTI as a soure; repeat cultures due to fever -brain MRI pending to evaluate -CMV, ryptococcus pending -CT abd/pelvis showes several hypodense liver lesions suspicious for metastatic disease -abd US showed B/L renal cysts, multiple hepatic masses possibly representing metastatic lesions. -CXR shows no active disease -WBC is worsened today to 1.8 from 2.2 yesterday -Heme/onc on consult, Dr. Flowers -ID on consult, continue merrem and vanco, currently on day 3. Will get vanc trough tomorrow -continue fluids -procalc is 19 Pancytopnia -WBC is worsened today to 1.8 from 2.2 yesterday -2/2 malignany vs chemo -Heme/onc on consult, Dr. Flowers BRANDON -likely 2/2 pre-renal from poor oral intake and dehydration -Bun/Cr are WNL -continue hydration Hx of breast cancer -On Ibrance (kinase inhibitor), Xgeva, and Fulvestrant on maintenance -Dx Mar 2016, s/p R mastectomy -mets to liver and bone Hx of COPD: -continue chavo byrne HTN: -continue home metoprolol 75mg -if SBP < 110, HR < 60, hold BP meds HLD: -continue statin, ASA Hypothyrodism -continue synthroid Neuropathy -continue home elavil PPX with pepcid and heparin SC HHD Patient seen and case discussed with attending, Dr. Clement <Mona Clement R - Last Filed: 02/05/18 17:08> Objective - Vital Signs/Intake and Output Vital Signs (last 24 hours): Temp Pulse Resp BP Pulse Ox 97.7 F 64 20 130/68 98 02/05/18 06:00 02/05/18 08:06 02/05/18 06:00 02/05/18 08:06 02/05/18 06:00 - Labs Labs: 02/05/18 07:00 02/05/18 07:00 PT 12.9 SECONDS (9.4-12.5) H 02/01/18 11:26 INR 1.12 02/01/18 11:26 APTT 16.6 Seconds (25.1-36.5) L 02/01/18 11:26 Attending/Attestation - Attestation I have personally seen and examined this patient.: Yes I have fully participated in the care of the patient.: Yes I have reviewed all pertinent clinical information, including history, physical exam and plan: Yes Notes (Text): Patient seen and examined by me with resident at 11AM with resident 02/04/18. Case including HPI, physical exam, and assessment and plan discussed with resident. Agree with above with following additions/corrections. Patient is an 87-year-old female past medical history significant for right breast cancer with metastases to the liver and bone on oral chemotherapy, diastolic CHF, hypertension, hyperlipidemia, Raynaud's, COPD, cataracts, hypothyroidism, falls, and GERD the presented to the emergency room with "body shaking and fever." Paitent states she is feeling better. Patient still with intermittent fevers. Rigors and chills improved. Patient is asking to eat regular food. She is denying any shortness of breath. No chest pain or palpitations. No nausea, vomiting, or abdominal pain. No headaches or dizziness. No dysuria. Physical exam: General: Awake and lying in bed in no acute distress HEENT: Normocephalic, atraumatic. Extraocular muscles intact, pupils equal and reactive, no scleral icterus. Oropharynx is pink and moist. Neck is supple. Cardiovascular: Regular rhythm. Normal S1 and S2. No rubs or gallops appreciated Pulmonary: Normal respiratory effort. No rhonchi, rales, or wheezing appre ciated. Gastrointestinal: Soft. Mild distention. Nontender. Positive bowel sounds all 4 quadrants. No guarding. Musculoskeletal: Moves all extremities. No calf tenderness. No CVA tenderness. No edema appreciated Central nervous system: AAO x3, CN 2-12 grossly intact. Dermatologic: Skin warm and dry. Assessment and plan: Patient is an 87-year-old female past medical history significant for right breast cancer with metastases to the liver and bone on oral chemotherapy, diastolic CHF, hypertension, hyperlipidemia, Raynaud's, COPD, cataracts, hypothyroidism, falls, and GERD the presented to the emergency room with "body shaking and fever." 1. Sepsis likely secondary to UTI. Still with fevers and chills. Leukopenia worsening. Hem/onc consulted, follow up recommendations. Procalcitonin 19.24. Blood culture with no growth to date. Urine culture pending. Continue Merrem and vancomycin. Continue on IV fluids. No ascites seen on abdominal ultrasound. Abdominal ultrasound per radiologist showed multiple hepatic masses possible representing metastatic kesion, bilateral renal cysts. ID consulted, recommendations appreciated. CT chest/abd/pelvis per radiologist showed several hypodense liver lesions are seen suspicious for metastatic disease, there is a 3.4 cm lesion in the posterior right lobe, there is a 2.4cm lesion in the left lobe near the falciform ligament, there is a 4cm lesion in the lateral segment of the left lobe. Chest x-ray per radiologist showed no active disease. 2. Pancytopenia. May be secondary to chemo and malignancy vs infection. Worsening. Hem/onc consulted, follow up recommendations. Continue to monitor CBC. 3. Hypotension. Secondary to sepsis. Resolved with IV fluids. Continue to monitor. 4. Acute kidney injury. Likely secondary to dehydration. Resolved with IV fluids. Continue to monitor 5. Abdominal pain and nausea. Resolved. Likely secondary to liver metastases. Abdominal ultrasound as above. Patient placed on regular diet today. 6. History of hypertension. Home hydrochlorothiazide and Toprol-XL held secondary to hypotension and sepsis for now. 7. Hyperlipidemia. Patient takes simvastatin at home. Continue with lipitor. 8. COPD. Patient not in acute exacerbation. Continue with Brovana and Pulmicort. 9. History of chronic diastolic CHF. Compensated. Continue to monitor for now. 10. Metastatic breast cancer. Patient is on 3 oral chemotherapy agents. Held for now. Patient follows with oncologist at [place]. 11. Hypothyroidism. Continue home Synthroid. 12. GI/DVT prophylaxis. Pepcid/Heparin 13. Advanced Directive. Discussed with patient. Patient is a DNR/DNI Case was discussed in detail with the patient regarding current diagnosis and treatment plan. All questions answered.
[2018-02-04] MEDS: Cholecalciferol 1,000 INTLU TAB PO SCH (21:42)
[2018-02-05] MEDS: Meropenem IV 1 gm in NS 1 GM/50 ML BAG IVPB SCH (05:21)
--- NOTE | 2018-02-05 06:34 | CP.PCM.PN ---
<Christie Reed - Last Filed: 02/05/18 11:37> Subjective - Date & Time of Evaluation Date of Evaluation: 02/05/18 Time of Evaluation: 07:00 - Subjective Subjective: Infectious Disease Progress Note for Meghna Pardo PGY3 Patient seen and examined at bedside. Patient is still having fevers with accompanied with headaches and rigors. She does not have any other symptoms at this time. Objective - Vital Signs/Intake and Output Vital Signs (last 24 hours): Temp Pulse Resp BP Pulse Ox 98.4 F 84 20 157/94 H 96 02/04/18 23:18 02/04/18 23:18 02/04/18 23:18 02/04/18 23:18 02/04/18 23:18 - Medications Medications: Current Medications Acetaminophen (Tylenol 325mg Tab) 650 mg PO Q4 PRN PRN Reason: Pain, Mild (1-3) Last Admin: 02/04/18 21:43 Dose: 650 mg Albuterol/Ipratropium (Duoneb 3 Mg/0.5 Mg (3 Ml) Ud) 3 ml IH [id number] PRN PRN Reason: Shortness of Breath Amitriptyline HCl (Elavil) 75 mg PO HS [facility] Last Admin: 02/04/18 21:42 Dose: 75 mg Arformoterol Tartrate (Brovana) 15 mcg IH [id number] [facility] Last Admin: 02/04/18 21:20 Dose: 15 mcg Aspirin (Ecotrin) 81 mg PO DAILY [facility] Last Admin: 02/04/18 09:13 Dose: 81 mg Atorvastatin Calcium (Lipitor) 10 mg PO DIN [facility] Last Admin: 02/04/18 17:31 Dose: 10 mg Budesonide (Pulmicort Respules) 0.25 mg IH [id number] [facility] Last Admin: 02/04/18 21:20 Dose: 0.25 mg Cholecalciferol (Vitamin D) 2,000 intlu PO HS [facility] Last Admin: 02/04/18 21:42 Dose: 2,000 intlu Famotidine (Pepcid) 20 mg PO HS [facility] Last Admin: 02/04/18 21:42 Dose: 20 mg Heparin Sodium (Porcine) (Heparin) 5,000 units SC Q8 [facility]; Protocol Last Admin: 02/05/18 05:21 Dose: 5,000 units Sodium Chloride (Sodium Chloride 0.9%) 1,000 mls @ 100 mls/hr IV .Q10H [facility] Last Admin: 02/04/18 23:09 Dose: 100 mls/hr Meropenem (Merrem Iv 1 Gm Premix) 1 gm in 50 mls @ 100 mls/hr IVPB Q8 [facility]; Protocol Last Admin: 02/05/18 05:21 Dose: 100 mls/hr Levothyroxine Sodium (Synthroid) 75 mcg PO ACB [facility] Last Admin: 02/04/18 09:12 Dose: 75 mcg Metoprolol Succinate (Toprol Xl) 75 mg PO BRK [facility] Last Admin: 02/04/18 09:12 Dose: 75 mg Multivitamins (Thera Tab) 1 tab PO DAILY [facility] Last Admin: 02/04/18 09:13 Dose: 1 tab Ondansetron HCl (Zofran Inj) 4 mg IVP Q6H PRN PRN Reason: Nausea/Vomiting - Labs Labs: 02/04/18 07:00 02/04/18 07:50 PT 12.9 SECONDS (9.4-12.5) H 02/01/18 11:26 INR 1.12 02/01/18 11:26 APTT 16.6 Seconds (25.1-36.5) L 02/01/18 11:26 - Constitutional Appears: No Acute Distress - Head Exam Head Exam: ATRAUMATIC, NORMAL INSPECTION, NORMOCEPHALIC - Eye Exam Eye Exam: Normal appearance, PERRL Pupil Exam: NORMAL ACCOMODATION, PERRL - ENT Exam ENT Exam: Mucous Membranes Moist - Neck Exam Neck Exam: Full ROM - Respiratory Exam Respiratory Exam: Clear to Ausculation Bilateral, NORMAL BREATHING PATTERN. absent: Rales, Rhonchi, Wheezes - Cardiovascular Exam Cardiovascular Exam: REGULAR RHYTHM, +S1, +S2. absent: Gallop, Rubs, Murmur - GI/Abdominal Exam GI & Abdominal Exam: Soft, Normal Bowel Sounds. absent: Rigid, Tenderness, Mass, Rebound - Extremities Exam Extremities Exam: Normal Inspection. absent: Calf Tenderness, Pedal Edema - Neurological Exam Neurological Exam: Alert, Awake, CN II-XII Intact, Oriented x3 - Psychiatric Exam Psychiatric exam: Normal Affect, Normal Mood - Skin Skin Exam: Dry, Warm Assessment and Plan - Assessment and Plan (Free Text) Assessment: 1. SIRS - r/o sepsis source 2. Breast ca - metastatic to liver and bone - currently on hormone therapy 3. Small frontal meningioma seen on previous MRI 4. CAD 5. CHF 6. COPD 7. Hypothyroid 8. Raynauds Plan: Labs and imaging reviewed. Discussed case with Dr. Flowers at length. He believes that the fevers are more likely secondary to advanced metastatic cancer. He recommended scheduled Naproxen. ANC is 800. Neutropenia can be secondary to advancing cancer as per Dr. Flowers. Patient's septic work up is negative thus far. Awaiting MRI of brain. Patient is refusing MRI and would like to be D/C home. She will follow up with Dr. Flowers on Thursday. Patient does not need to be d/c with PO antibiotics since this does not seem like an infectious process at this time. Case seen, discussed and reviewed with Dr. Harden. Meghna Reed PGY3 <Allen Harden - Last Filed: 02/05/18 12:39> Objective - Vital Signs/Intake and Output Vital Signs (last 24 hours): Temp Pulse Resp BP Pulse Ox 97.7 F 64 20 130/68 98 02/05/18 06:00 02/05/18 08:06 02/05/18 06:00 02/05/18 08:06 02/05/18 06:00 - Medications Medications: Current Medications Acetaminophen (Tylenol 325mg Tab) 650 mg PO Q4 PRN PRN Reason: Pain, Mild (1-3) Last Admin: 02/04/18 21:43 Dose: 650 mg Albuterol/Ipratropium (Duoneb 3 Mg/0.5 Mg (3 Ml) Ud) 3 ml IH [id number] PRN PRN Reason: Shortness of Breath Amitriptyline HCl (Elavil) 75 mg PO HS [facility] Last Admin: 02/04/18 21:42 Dose: 75 mg Arformoterol Tartrate (Brovana) 15 mcg IH [id number] [facility] Last Admin: 02/05/18 07:12 Dose: 15 mcg Aspirin (Ecotrin) 81 mg PO DAILY [facility] Last Admin: 02/05/18 11:14 Dose: 81 mg Atorvastatin Calcium (Lipitor) 10 mg PO DIN [facility] Last Admin: 02/04/18 17:31 Dose: 10 mg Budesonide (Pulmicort Respules) 0.25 mg IH [id number] [facility] Last Admin: 02/05/18 07:12 Dose: 0.25 mg Cholecalciferol (Vitamin D) 2,000 intlu PO HS [facility] Last Admin: 02/04/18 21:42 Dose: 2,000 intlu Famotidine (Pepcid) 20 mg PO HS [facility] Last Admin: 02/04/18 21:42 Dose: 20 mg Heparin Sodium (Porcine) (Heparin) 5,000 units SC Q8 [facility]; Protocol Last Admin: 02/05/18 05:21 Dose: 5,000 units Meropenem (Merrem Iv 1 Gm Premix) 1 gm in 50 mls @ 100 mls/hr IVPB Q8 [facility]; Protocol Last Admin: 02/05/18 05:21 Dose: 100 mls/hr Levothyroxine Sodium (Synthroid) 75 mcg PO ACB [facility] Last Admin: 02/05/18 08:06 Dose: 75 mcg Metoprolol Succinate (Toprol Xl) 75 mg PO BRK [facility] Last Admin: 02/05/18 08:06 Dose: 75 mg Multivitamins (Thera Tab) 1 tab PO DAILY [facility] Last Admin: 02/05/18 11:14 Dose: 1 tab Naproxen (Anaprox Ds) 550 mg PO BID [facility] Last Admin: 02/05/18 11:14 Dose: 550 mg Ondansetron HCl (Zofran Inj) 4 mg IVP Q6H PRN PRN Reason: Nausea/Vomiting - Labs Labs: 02/05/18 07:00 02/05/18 07:00 PT 12.9 SECONDS (9.4-12.5) H 02/01/18 11:26 INR 1.12 02/01/18 11:26 APTT 16.6 Seconds (25.1-36.5) L 02/01/18 11:26 Assessment and Plan - Assessment and Plan (Free Text) Plan: Infectious Diseases Attending Physician Attestation Patient seen and examined, discussed with biomedical field service engineer. I have reviewed the patient's history of present illness, past medical, family and social histories, personal history, physical exam, lab findings and imaging studies. I agree with the above findings, assessment and plan. In addition, we will discontinue Merrem for this patient SIRS, probably related to metastatic breast cancer. CXR is negative for infiltrates. CT A/P is showing metastatic liver lesions. Will also get MRI brain. Discussed with Heme/Onc - will give Naproxen and patient to follow up with her Oncologist. Overall prognosis is poor.
[2018-02-05] MEDS: Arformoterol 15 mcg/2 ml Inh Sol IH SCH (07:12)
[2018-02-05] MEDS: Budesonide 0.25 mg/2 ml Inhal Susp UD IH SCH (07:12)
[2018-02-05 07:31] LABS: BASO # 0.06 K/mm3 (0.0-2.0); BASO % 3.9 % (0.0-3.0); EOS % 2.6 % (1.5-5.0); GRAN # 0.8 (1.4-6.5); GRAN % 51.5 % (50.0-68.0); LYMPH # 0.4 (1.2-3.4); LYMPH % 26.5 % (22.0-35.0); MEAN CELL VOLUME 88.7 fl (80.0-105.0); MEAN CORPUSCULAR HEMOGLOBIN 29.9 pg (25.0-35.0); MEAN CORPUSCULAR HGB CONC 33.7 g/dl (31.0-37.0); MEAN PLATELET VOLUME 9.2 fl (7.0-11.0); MONO # 0.2 (0.1-0.6); MONO % 15.5 % (1.0-6.0); RBC 3.01 10^6/uL (3.5-6.1); RED CELL DISTRIBUTION WIDTH 17.3 % (11.5-14.5)
[2018-02-05 07:39] LABS: WHITE BLOOD COUNT 1.6 10^3/uL (4.5-11.0)
[2018-02-05 07:40] LABS: ALBUMIN 2.9 g/dL (3.0-4.8); ALT/SGPT 38 U/L (7-56); AST/SGOT 27 U/L (14-36); BLOOD UREA NITROGEN 9 mg/dL (7-21); CALCIUM 8.3 mg/dL (8.4-10.5); GFR NON-AFRICAN AMERICAN > 60
[2018-02-05] MEDS: Levothyroxine 75 MCG TAB PO SCH (08:06)
[2018-02-05] MEDS: Metoprolol Succinate 50 mg XL Tab PO SCH (08:06)
[2018-02-05 08:15] VITALS: BP 130/68; PULSE 64
[2018-02-05 08:50] VITALS: TEMP 97.7; O2SAT 98
[2018-02-05] MEDS ORDERED: Naproxen 550 mg Tab PO SCH (10:15)
[2018-02-05] MEDS: Multivitamin Therapeutic Tab PO SCH (11:14)
--- NOTE | 2018-02-05 15:05 | CP.PCM.DIS ---
<Kailey Lowry - Last Filed: 02/05/18 14:56> Provider - Provider Date of Admission: 02/02/18 09:28 Attending physician: Mona Clement DO Primary care physician: Marvin Reno MD Consults: ID: Fina Onc: Kristie Time Spent in preparation of Discharge (in minutes): 35 Hospital Course - Lab Results Lab Results: Micro Results 02/01/18 11:56 Blood Blood Culture - Preliminary NO GROWTH AFTER 4 DAYS 02/01/18 11:26 Blood Blood Culture - Preliminary NO GROWTH AFTER 4 DAYS 02/04/18 07:30 Blood Blood Culture - Preliminary NO GROWTH AFTER 24 HOURS 02/04/18 07:15 Blood Blood Culture - Preliminary NO GROWTH AFTER 24 HOURS 02/03/18 11:30 Urine Urine Culture - Final No Growth (<1,000 CFU/ML) Most Recent Lab Values WBC 1.6 10^3/uL (4.5-11.0) L* 02/05/18 07:00 RBC 3.01 10^6/uL (3.5-6.1) L 02/05/18 07:00 Hgb 9.0 g/dL (12.0-16.0) L 02/05/18 07:00 Hct 26.7 % (36.0-48.0) L 02/05/18 07:00 MCV 88.7 fl (80.0-105.0) 02/05/18 07:00 MCH 29.9 pg (25.0-35.0) 02/05/18 07:00 MCHC 33.7 g/dl (31.0-37.0) 02/05/18 07:00 RDW 17.3 % (11.5-14.5) H 02/05/18 07:00 Plt Count 100 10^3/uL (120.0-450.0) L 02/05/18 07:00 MPV 9.2 fl (7.0-11.0) 02/05/18 07:00 Gran % 51.5 % (50.0-68.0) 02/05/18 07:00 Lymph % (Auto) 26.5 % (22.0-35.0) 02/05/18 07:00 [place] % (Auto) 15.5 % (1.0-6.0) H 02/05/18 07:00 Eos % (Auto) 2.6 % (1.5-5.0) 02/05/18 07:00 Baso % (Auto) 3.9 % (0.0-3.0) H 02/05/18 07:00 Gran # 0.80 (1.4-6.5) L 02/05/18 07:00 Lymph # (Auto) 0.4 (1.2-3.4) L 02/05/18 07:00 [place] # (Auto) 0.2 (0.1-0.6) 02/05/18 07:00 Eos # (Auto) 0.0 (0.0-0.7) 02/05/18 07:00 Baso # (Auto) 0.06 K/mm3 (0.0-2.0) 02/05/18 07:00 Neutrophils % (Manual) 58 % (50.0-70.0) 02/04/18 07:00 Band Neutrophils % 1 % (0-2) 02/04/18 07:00 Lymphocytes % (Manual) 23 % (22.0-35.0) 02/04/18 07:00 Monocytes % (Manual) 11 % (1.0-6.0) H 02/04/18 07:00 Eosinophils % (Manual) 1 % (0.0-3.0) 02/04/18 07:00 Basophils % (Manual) 6 % (0.0-1.0) H 02/04/18 07:00 Platelet Evaluation Low (NORMAL) 02/04/18 07:00 PT 12.9 SECONDS (9.4-12.5) H 02/01/18 11:26 INR 1.12 02/01/18 11:26 APTT 16.6 Seconds (25.1-36.5) L 02/01/18 11:26 pO2 36 mm/Hg (30-55) 02/01/18 20:54 VBG pH 7.44 (7.32-7.43) H 02/01/18 20:54 VBG pCO2 38.0 (40-60) L 02/01/18 20:54 VBG HCO3 25.8 mmol/l (21-28) 02/01/18 20:54 VBG Total CO2 27.0 mmol.L (22-28) 02/01/18 20:54 VBG O2 Sat (Calc) 77.0 % (40-65) H 02/01/18 20:54 VBG Base Excess 1.7 mmol/L (0.0-2.0) 02/01/18 20:54 VBG Potassium 4.5 mmol/L (3.6-5.2) 02/01/18 20:54 Sodium 135.0 mmol/L (132-148) 02/01/18 20:54 Chloride 106.0 mmol/L (98-107) 02/01/18 20:54 Glucose 154 mg/dl (65-105) H 02/01/18 20:54 Lactate 1.8 mmol/L (0.7-2.1) 02/01/18 20:54 FiO2 21.0 % 02/01/18 20:54 Sodium 135 mmol/L (132-148) 02/05/18 07:00 Potassium 4.1 mmol/L (3.6-5.0) 02/05/18 07:00 Chloride 106 mmol/L (98-107) 02/05/18 07:00 Carbon Dioxide 23 mmol/L (21-33) 02/05/18 07:00 Anion Gap 10 (10-20) 02/05/18 07:00 BUN 9 mg/dL (7-21) 02/05/18 07:00 Creatinine 0.8 mg/dl (0.7-1.2) 02/05/18 07:00 Est GFR ( Amer) > 60 02/05/18 07:00 Est GFR (Non-Af Amer) > 60 02/05/18 07:00 Random Glucose 93 mg/dL (70-110) 02/05/18 07:00 Hemoglobin A1c 6.3 % (4.2-6.5) 02/02/18 06:30 Calcium 8.3 mg/dL (8.4-10.5) L 02/05/18 07:00 Phosphorus 2.4 mg/dL (2.5-4.5) L 02/01/18 11:26 Magnesium 1.8 mg/dL (1.7-2.2) 02/01/18 11:26 Total Bilirubin 0.4 mg/dL (0.2-1.3) 02/05/18 07:00 AST 27 U/L (14-36) 02/05/18 07:00 ALT 38 U/L (7-56) 02/05/18 07:00 Alkaline Phosphatase 62 U/L (38-126) 02/05/18 07:00 Troponin I 0.01 ng/mL 02/01/18 11:26 NT-Pro-B Natriuret Pep 1270 pg/mL (0-450) H 02/01/18 11:26 Total Protein 5.6 g/dL (5.8-8.3) L 02/05/18 07:00 Albumin 2.9 g/dL (3.0-4.8) L 02/05/18 07:00 Globulin 2.8 gm/dL 02/05/18 07:00 Albumin/Globulin Ratio 1.0 (1.1-1.8) L 02/05/18 07:00 Procalcitonin 19.24 NG/ML (0.19-0.49) H 02/01/18 20:58 Venous Blood Potassium 4.5 mmol/L (3.6-5.2) 02/01/18 20:54 Urine Color Yellow (YELLOW) 02/03/18 11:30 Urine Appearance Clear (CLEAR) 02/03/18 11:30 Urine pH 6.5 (4.7-8.0) 02/03/18 11:30 Ur Specific [place] 1.020 (1.005-1.035) 02/03/18 11:30 Urine Protein Trace mg/dL (<30 mg/dL) H 02/03/18 11:30 Urine Glucose (UA) Negative mg/dL (NEGATIVE) 02/03/18 11:30 Urine Ketones Negative mg/dL (NEGATIVE) 02/03/18 11:30 Urine Blood Small (NEGATIVE) H 02/03/18 11:30 Urine Nitrate Negative (NEGATIVE) 02/03/18 11:30 Urine Bilirubin Negative (NEGATIVE) 02/03/18 11:30 Urine Urobilinogen 0.2 E.U./dL (<1 E.U./dL) 02/03/18 11:30 Ur Leukocyte Esterase Small Sharan/uL (NEGATIVE) H 02/03/18 11:30 Urine RBC 5 - 10 /hpf (0-2) 02/03/18 11:30 Urine WBC 10 - 15 /hpf (0-6) 02/03/18 11:30 Ur Epithelial Cells 4 - 5 /hpf (0-5) 02/03/18 11:30 Amorphous Sediment Few 02/03/18 11:30 Urine Bacteria Many (NEG) 02/03/18 11:30 Urine Other Uyeast 02/01/18 12:30 Ur Random Creatinine 52 mg/dL 02/03/18 11:30 Ur Random Urea Nitrogn 330 mg/dL 02/03/18 11:30 Vancomycin Trough 15.3 ug/mL (5.0-10.0) H* 02/04/18 17:00 Cryptococcus Ag Screen Not detected (Not Detected) 02/04/18 13:00 Hepatitis A IgM Ab Negative (NEGATIVE) 02/01/18 20:54 Hep Bs Antigen Negative (NEGATIVE) 02/01/18 20:54 Hep B Core IgM Ab Negative (NEGATIVE) 02/01/18 20:54 Hepatitis C Antibody Negative (NEGATIVE) 02/01/18 20:54 Influenza Typ A,B (EIA) Negative for flu a/b (NEGATIVE) 02/02/18 10:40 - Hospital Course Hospital Course: Upon Admission Ms. Brinda Lopez is a 87 year old female with a past medical history of HTN, HLD, Hypothyroid, COPD, and breast cancer with metastasis to the bone and liver. Per patient, she was on Chemotherapy for 8 months and finished on June 2017. Ms. Lopez presented to [facility] Emergency Room (ED) by on 02/01/18 complaining of fever associated with generalized weakness, chills, and nausea for 1 day duration. Patient stated her Tmax was 103 at home. Rectal temperature was 103.4 in the ED. EKG showed normal sinus rhythm and no acute ST changes. Labs showed wbc 3.8, BUN 38/creat 1.5 (elevated compared to prior labs in 07/2017 - at that time her bun/creat was with in normal limits), and positive UA. Patient was admitted to Medicine for neutropenic fever, urinary track infection, and dehydration. Hospital course During the course of her stay, Ms. Lopez's dehydration and BRANDON improved with IV fluids. She was treated for sepsis, pancytopenia and BRANDNO. Her fever was controlled with Tylenol but continued to return in a cyclical manner. Tmax was 102.3. Patient had CT of the abdomen and pelvis to rule out a source of infection. CT showed lesions in the live but no source of infection. Blood and urine culture were negative. Patient expressed her wished to discontinue any imaging studied and invasive procedures including Brain MRI and echo. She expressed her desired to stop chemo medication except for pain control. On discharge Infectious Disease cleared patient to go home after possible sources of infections were ruled out. It was determined that her cyclical fevers was likely due the progression of the breast cancer. Patient is to follow up with her primary care physician and oncologist. Patient was discharge with Naproxen for pain. Discharge Exam - Head Exam Head Exam: ATRAUMATIC, NORMAL INSPECTION, NORMOCEPHALIC - Additional Findings Additional findings: - Constitutional Appears: No Acute Distress - Head Exam Head Exam: ATRAUMATIC, NORMAL INSPECTION - Eye Exam Eye Exam: EOMI Pupil Exam: PERRL - ENT Exam ENT Exam: Mucous Membranes Moist - Respiratory Exam Respiratory Exam: Clear to Ausculation Bilateral. absent: Accessory Muscle Use, Wheezes - Cardiovascular Exam Cardiovascular Exam: REGULAR RHYTHM, +S1, +S2 - GI/Abdominal Exam GI & Abdominal Exam: Normal Bowel Sounds. absent: Guarding, Rigid - Extremities Exam Extremities Exam: Normal Inspection. absent: Calf Tenderness - Neurological Exam Neurological Exam: Alert, Oriented x3 - Skin Skin Exam: Normal Color, Warm Discharge Plan - Discharge Medications Prescriptions: RX: Naproxen 500 mg PO BID 5 Days #10 tab - Follow Up Plan Condition: FAIR Disposition: HOME/ ROUTINE Instructions: Heart Healthy Diet, Dehydration, Adult (DC), Urinary Tract Infection, Adult (DC), Nausea and Vomiting, Adult (DC), Sepsis, Adult (DC), Neutropenia (DC) Additional Instructions: Please follow up with your oncologist, Dr. Flowers, On Thursday or Thursday (02/08/2018-02/09/2018) of next week (as you discussed with Dr Flowers). Please follow up with your primary care doctor, Dr. Reno within 3-5 days of discharge. Please resume your home medications. You informed us that you do not need any refills for your home medications at this time. We are prescribing you naproxen for your symptoms. Naproxen will help with the fever and rigors. You can also take Tylenol as needed for fevers. Please return to the ED for any new or worsening symptoms. Referrals: Te Flowers MD [Medical Doctor] - Marvin Reno MD [Primary Care Provider] - <Mona Clement - Last Filed: 02/08/18 13:18> Provider - Provider Date of Admission: 02/02/18 09:28 Attending physician: Mona Clement DO Primary care physician: Marvin Reno MD Hospital Course - Lab Results Lab Results: Micro Results 02/04/18 07:30 Blood Blood Culture - Preliminary NO GROWTH AFTER 4 DAYS 02/04/18 07:15 Blood Blood Culture - Preliminary NO GROWTH AFTER 4 DAYS 02/01/18 11:56 Blood Blood Culture - Final NO GROWTH AFTER 5 DAYS 02/01/18 11:56 Blood Gram Stain - Final TEST NOT PERFORMED 02/01/18 11:26 Blood Blood Culture - Final NO GROWTH AFTER 5 DAYS 02/01/18 11:26 Blood Gram Stain - Final TEST NOT PERFORMED 02/03/18 11:30 Urine Urine Culture - Final No Growth (<1,000 CFU/ML) Most Recent Lab Values WBC 1.6 10^3/uL (4.5-11.0) L* 02/05/18 07:00 RBC 3.01 10^6/uL (3.5-6.1) L 02/05/18 07:00 Hgb 9.0 g/dL (12.0-16.0) L 02/05/18 07:00 Hct 26.7 % (36.0-48.0) L 02/05/18 07:00 MCV 88.7 fl (80.0-105.0) 02/05/18 07:00 MCH 29.9 pg (25.0-35.0) 02/05/18 07:00 MCHC 33.7 g/dl (31.0-37.0) 02/05/18 07:00 RDW 17.3 % (11.5-14.5) H 02/05/18 07:00 Plt Count 100 10^3/uL (120.0-450.0) L 02/05/18 07:00 MPV 9.2 fl (7.0-11.0) 02/05/18 07:00 Gran % 51.5 % (50.0-68.0) 02/05/18 07:00 Lymph % (Auto) 26.5 % (22.0-35.0) 02/05/18 07:00 [place] % (Auto) 15.5 % (1.0-6.0) H 02/05/18 07:00 Eos % (Auto) 2.6 % (1.5-5.0) 02/05/18 07:00 Baso % (Auto) 3.9 % (0.0-3.0) H 02/05/18 07:00 Gran # 0.80 (1.4-6.5) L 02/05/18 07:00 Lymph # (Auto) 0.4 (1.2-3.4) L 02/05/18 07:00 [place] # (Auto) 0.2 (0.1-0.6) 02/05/18 07:00 Eos # (Auto) 0.0 (0.0-0.7) 02/05/18 07:00 Baso # (Auto) 0.06 K/mm3 (0.0-2.0) 02/05/18 07:00 Neutrophils % (Manual) 58 % (50.0-70.0) 02/04/18 07:00 Band Neutrophils % 1 % (0-2) 02/04/18 07:00 Lymphocytes % (Manual) 23 % (22.0-35.0) 02/04/18 07:00 Monocytes % (Manual) 11 % (1.0-6.0) H 02/04/18 07:00 Eosinophils % (Manual) 1 % (0.0-3.0) 02/04/18 07:00 Basophils % (Manual) 6 % (0.0-1.0) H 02/04/18 07:00 Platelet Evaluation Low (NORMAL) 02/04/18 07:00 PT 12.9 SECONDS (9.4-12.5) H 02/01/18 11:26 INR 1.12 02/01/18 11:26 APTT 16.6 Seconds (25.1-36.5) L 02/01/18 11:26 pO2 36 mm/Hg (30-55) 02/01/18 20:54 VBG pH 7.44 (7.32-7.43) H 02/01/18 20:54 VBG pCO2 38.0 (40-60) L 02/01/18 20:54 VBG HCO3 25.8 mmol/l (21-28) 02/01/18 20:54 VBG Total CO2 27.0 mmol.L (22-28) 02/01/18 20:54 VBG O2 Sat (Calc) 77.0 % (40-65) H 02/01/18 20:54 VBG Base Excess 1.7 mmol/L (0.0-2.0) 02/01/18 20:54 VBG Potassium 4.5 mmol/L (3.6-5.2) 02/01/18 20:54 Sodium 135.0 mmol/L (132-148) 02/01/18 20:54 Chloride 106.0 mmol/L (98-107) 02/01/18 20:54 Glucose 154 mg/dl (65-105) H 02/01/18 20:54 Lactate 1.8 mmol/L (0.7-2.1) 02/01/18 20:54 FiO2 21.0 % 02/01/18 20:54 Sodium 135 mmol/L (132-148) 02/05/18 07:00 Potassium 4.1 mmol/L (3.6-5.0) 02/05/18 07:00 Chloride 106 mmol/L (98-107) 02/05/18 07:00 Carbon Dioxide 23 mmol/L (21-33) 02/05/18 07:00 Anion Gap 10 (10-20) 02/05/18 07:00 BUN 9 mg/dL (7-21) 02/05/18 07:00 Creatinine 0.8 mg/dl (0.7-1.2) 02/05/18 07:00 Est GFR ( Amer) > 60 02/05/18 07:00 Est GFR (Non-Af Amer) > 60 02/05/18 07:00 Random Glucose 93 mg/dL (70-110) 02/05/18 07:00 Hemoglobin A1c 6.3 % (4.2-6.5) 02/02/18 06:30 Calcium 8.3 mg/dL (8.4-10.5) L 02/05/18 07:00 Phosphorus 2.4 mg/dL (2.5-4.5) L 02/01/18 11:26 Magnesium 1.8 mg/dL (1.7-2.2) 02/01/18 11:26 Total Bilirubin 0.4 mg/dL (0.2-1.3) 02/05/18 07:00 AST 27 U/L (14-36) 02/05/18 07:00 ALT 38 U/L (7-56) 02/05/18 07:00 Alkaline Phosphatase 62 U/L (38-126) 02/05/18 07:00 Troponin I 0.01 ng/mL 02/01/18 11:26 NT-Pro-B Natriuret Pep 1270 pg/mL (0-450) H 02/01/18 11:26 Total Protein 5.6 g/dL (5.8-8.3) L 02/05/18 07:00 Albumin 2.9 g/dL (3.0-4.8) L 02/05/18 07:00 Globulin 2.8 gm/dL 02/05/18 07:00 Albumin/Globulin Ratio 1.0 (1.1-1.8) L 02/05/18 07:00 Procalcitonin 19.24 NG/ML (0.19-0.49) H 02/01/18 20:58 Venous Blood Potassium 4.5 mmol/L (3.6-5.2) 02/01/18 20:54 Urine Color Yellow (YELLOW) 02/03/18 11:30 Urine Appearance Clear (CLEAR) 02/03/18 11:30 Urine pH 6.5 (4.7-8.0) 02/03/18 11:30 Ur Specific [place] 1.020 (1.005-1.035) 02/03/18 11:30 Urine Protein Trace mg/dL (<30 mg/dL) H 02/03/18 11:30 Urine Glucose (UA) Negative mg/dL (NEGATIVE) 02/03/18 11:30 Urine Ketones Negative mg/dL (NEGATIVE) 02/03/18 11:30 Urine Blood Small (NEGATIVE) H 02/03/18 11:30 Urine Nitrate Negative (NEGATIVE) 02/03/18 11:30 Urine Bilirubin Negative (NEGATIVE) 02/03/18 11:30 Urine Urobilinogen 0.2 E.U./dL (<1 E.U./dL) 02/03/18 11:30 Ur Leukocyte Esterase Small Sharan/uL (NEGATIVE) H 02/03/18 11:30 Urine RBC 5 - 10 /hpf (0-2) 02/03/18 11:30 Urine WBC 10 - 15 /hpf (0-6) 02/03/18 11:30 Ur Epithelial Cells 4 - 5 /hpf (0-5) 02/03/18 11:30 Amorphous Sediment Few 02/03/18 11:30 Urine Bacteria Many (NEG) 02/03/18 11:30 Urine Other Uyeast 02/01/18 12:30 Ur Random Creatinine 52 mg/dL 02/03/18 11:30 Ur Random Urea Nitrogn 330 mg/dL 02/03/18 11:30 Vancomycin Trough 15.3 ug/mL (5.0-10.0) H* 02/04/18 17:00 Cryptococcus Ag Screen Not detected (Not Detected) 02/04/18 13:00 Hepatitis A IgM Ab Negative (NEGATIVE) 02/01/18 20:54 Hep Bs Antigen Negative (NEGATIVE) 02/01/18 20:54 Hep B Core IgM Ab Negative (NEGATIVE) 02/01/18 20:54 Hepatitis C Antibody Negative (NEGATIVE) 02/01/18 20:54 Influenza Typ A,B (EIA) Negative for flu a/b (NEGATIVE) 02/02/18 10:40 Attending/Attestation - Attestation I have personally seen and examined this patient.: Yes I have fully participated in the care of the patient.: Yes I have reviewed all pertinent clinical information, including history, physical exam and plan: Yes Notes (Text): Patient seen and examined by me with resident at 10:15 AM on 02/05/18. Case including discharge plan discussed with resident. Agree with above with following additions/corrections. Patient is an 87-year-old female past medical history significant for right breast cancer with metastases to the liver and bone on oral chemotherapy, diastolic CHF, hypertension, hyperlipidemia, Raynaud's, COPD, cataracts, hypothyroidism, falls, and GERD the presented to the emergency room with "body shaking and fever." Please see H&P for full details. Patient was admitted with sepsis likely secondary to UTI, hypotension, BRANDON, abdominal pain and nausea, hypertension, hyperlipidemia, COPD, chronic diastolic CHF, metastatic breast cancer, and hypothyroidism. On admission, patient was found to have leukopenia, tachypnea, hypotension, and fever. Patient was placed on IV fluids and was started on Merrem. Vancomycin was also added. Chest xray showed no active disease. Abdominal ultrasound per radiologist showed multiple hepatic masses possible representing metastatic kesion, bilateral renal cysts. ID consulted, recommendations appreciated. CT chest/abd/pelvis per radiologist showed several hypodense liver lesions are seen suspicious for metastatic disease, there is a 3.4 cm lesion in the posterior right lobe, there is a 2.4cm lesion in the left lobe near the falciform ligament, there is a 4cm lesion in the lateral segment of the left lobe. Blood culture and urine cultures showed no growth. Patient continued to have a fever. Patient was found to have worsening pancytopenia and hem/onc was consulted. It was determined that fever is likely secondary to worsening of cancer with liver mets. Patient was cleared for discharge by both ID Dr. Estrada and Hem/onc Dr. Flowers with naproxen and outpatient follow up. Hypotension and BRANDON resolved with IV fluids. Abdominal pain also resolved. Patient was decided that she no longer wanted treatment for her cancer and wanted to spend her last days at home. Patient was discharged home. On day of discharge, patient stated she was feeling much better. Patient stated rigors and chills improved. Patient stated she no longer wanted chemo therapy and to spend her last days at home. Patient denied any chest pain or shortness of breath. No headaches or dizziness. No nausea, vomiting, or abdominal pain. No dysuria. No diarrhea or constipation. Patient ambulating well. Physical exam: General: Awake and lying in bed in no acute distress HEENT: Normocephalic, atraumatic. Extraocular muscles intact, pupils equal and reactive, no scleral icterus. Oropharynx is pink and moist. Neck is supple. Cardiovascular: Regular rhythm. Normal S1 and S2. No rubs or gallops appreciated Pulmonary: Normal respiratory effort. No rhonchi, rales, or wheezing appreciated. Gastrointestinal: Soft. Mild distention. Nontender. Positive bowel sounds all 4 quadrants. No guarding. Musculoskeletal: Moves all extremities. No calf tenderness. No CVA tenderness. No edema appreciated Central nervous system: AAO x3, CN 2-12 grossly intact. Dermatologic: Skin warm and dry. Please see chart for full details. Follow up instructions: Patient to follow up with primary care doctor within 3- 5 days. Patient to follow with oncologist Dr. Flowers On Thursday or Thursday (02/08/2018-02/09/2018) . All instructions explained to in detail. Patient both understands and agrees to all instructions. Written instructions also given. Time spent in discharging the patient including chart review, medication reconciliation, discussion with the patient, medical center representative, consultants, and nursing staff was 40 minutes.
--- NOTE | 2018-02-08 08:18 | CON ---
DATE: 02/05/2018 ONCOLOGY CONSULTATION HISTORY OF PRESENT ILLNESS: This is an 87-year-old woman with widely metastatic breast cancer. The patient tells me that she started having pains in her breast and chest wall about 03/2016. By 11/2017, they discovered the breast cancer. Her previous biopsy was negative. She underwent a mastectomy. At this point, she was then postoperatively given CMF chemotherapy of 6 cycles, which will make it about 4 months' to 5 months' worth. about 06/2017 when it was discovered that she now had bone metastasis and liver metastasis, so she was put on letrozole and after letrozole, she had progressive cancer and so only a month ago, she was switched to fulvestrant injections plus the Ibrance. So, she has only been on it about 5-6 weeks. Her last Ibrance was a week ago. She started coming in with fevers. These are hectic fevers, they go up to about 103 and 104 and go up and down, respond to the Tylenol, but come right back up again. She has no other symptoms. No cough. No phlegm. No urinary tract infection symptoms. PHYSICAL EXAMINATION: SKIN: No petechiae. No bruises. HEENT: Anicteric. NODES: None palpable in the axillary, cervical, supraclavicular, or inguinal regions. LUNGS: Clear at present. No wheezing. No rhonchi. No rales. No rubs. The patient is able to lie flat in bed. HEART: S1 and S2. ABDOMEN: Shows no liver, no spleen, no tenderness, no rebound, no ascites, no organomegaly. EXTREMITIES: No edema. OVEN PRESS TENDER: No focal finding. Plantars are downgoing bilaterally. ASSESSMENT: It is very clear she is nontoxic with these fevers and they are coming up and down. She had a CAT scan, which showed liver metastasis. I tried to get the PET scan that was done several weeks ago, but it sounds to me like this is active and rapidly progressive cancer and I think the fever is due to that. If it is bacterial, she would respond to the vancomycin, etc. If it is viral, antibiotics are not going to help her anyway, but I do not think so. If it is fungal, actual fungal positivity and I could start on antifungal medications, but I do believe this is progressive cancer in her liver causing the fever. I would recommend giving a long-acting ibuprofen such as Naprosyn or whatever twice a day regardless of fever, just to suppress it, so she is less symptomatic. She is able to walk around. I told her that I will see her in the office Thursday or Thursday. My office is on [address]. I will then go over it, but she has no intention of taking any further treatment, chemotherapy, etc. She is off the Ibrance a week. The white count is 1.8. I would not worry too much. The neutrophils are about 1000 and that will go up by itself. So, at this point, I would consider stopping antibiotics, putting her on a long-acting ibuprofen and I would see her on Thursday or Thursday in the office. Te Flowers MD
== END 2018-02-05 13:42 | disposition home or self-care (01) | DRG 872 ==
LOC: ED 10:26 → ERH 13:18 → 5RNO 20:10 → OBSVTOIN 02-02 09:28
PROVIDERS: ADMIT Internal Medicine; ATTEND Hospitalist
DX: A41.9 Sepsis, unspecified organism (principal); C78.7 Secondary malignant neoplasm of liver and intrahepatic bile duct; C79.51 Secondary malignant neoplasm of bone; N39.0 Urinary tract infection, site not specified; I50.32 Chronic diastolic (congestive) heart failure; N17.9 Acute kidney failure, unspecified; D61.818 Other pancytopenia; R65.20 Severe sepsis without septic shock; J44.9 Chronic obstructive pulmonary disease, unspecified; I11.0 Hypertensive heart disease with heart failure; E03.9 Hypothyroidism, unspecified; K22.70 Barrett's esophagus without dysplasia; K21.9 Gastro-esophageal reflux disease without esophagitis; E86.0 Dehydration; D70.9 Neutropenia, unspecified; R50.81 Fever presenting with conditions classified elsewhere; I25.10 Atherosclerotic heart disease of native coronary artery without angina pectoris; I73.00 Raynaud's syndrome without gangrene; Z92.21 Personal history of antineoplastic chemotherapy; C50.919 Malignant neoplasm of unspecified site of unspecified female breast; D32.0 Benign neoplasm of cerebral meninges; E78.5 Hyperlipidemia, unspecified; T45.1X5A Adverse effect of antineoplastic and immunosuppressive drugs, initial encounter; Z17.0 Estrogen receptor positive status [ER+]; Z66 Do not resuscitate; Z79.82 Long term (current) use of aspirin; Z79.890 Hormone replacement therapy; Z82.49 Family history of ischemic heart disease and other diseases of the circulatory system; Z82.5 Family history of asthma and other chronic lower respiratory diseases; Z87.891 Personal history of nicotine dependence; Z90.11 Acquired absence of right breast and nipple; Z90.49 Acquired absence of other specified parts of digestive tract; Z98.42 Cataract extraction status, left eye; Z98.41 Cataract extraction status, right eye; Z98.61 Coronary angioplasty status